=== PATIENT | female | born 1960 | race Caucasian/White ===

== ENCOUNTER → 2020-01-21 14:54 | Outpatient (REF) | payer OTHER, SELFPAY ==
--- NOTE | 2020-01-21 15:00 | CA_ITS ---
Transthoracic Echocardiogram Patient (Last, First, Middle): Tala Farley, Gender: Female Date of : 1960 Age: 59 Procedure Date: 01/21/2020 Procedure Type: Transthoracic Echocardiogram Location: OP Height: 167.64 cm Weight: 79.38 kg BSA: 1.89 m2 Heart Rate: bpm BP: 128 / 70 mmHg Forepart Laster: Referring MD: Bryan Murry MD Symptoms: I35.0 AORTIC STENOSIS Study Quality: Fair ECG Rhythm: Sinus Conclusions: - Normal left ventricular size and systolic function. There is moderately increased left ventricular wall thickness. The visually estimated ejection fraction is between 55-60%. - E/E prime ratio is between 8 and 15 consistent with indeterminate filling pressures. - There is mild dilatation of the ascending aorta. - There is moderate calcification of the aortic valve. There is moderate thickening of the aortic valve. There is moderate to severe aortic valve stenosis. The peak aortic velocity is 3.80 m/s with a calculated peak gradient of 58 mmHg. The mean gradient is 34 mmHg. The aortic valve area is 1.00 cm2. There is no aortic valve regurgitation. SVI is 65. Findings Left Ventricle Normal left ventricular size and systolic function. There is moderately increased left ventricular wall thickness. The visually estimated ejection fraction is between 55-60%. Abnormal diastolic function is noted. Spectral Doppler is indicative of an impaired relaxation filling pattern. E/E prime ratio is between 8 and 15 consistent with indeterminate filling pressures. Right Ventricle Normal right ventricular cavity size and systolic function. Atria The left atrium is mildly dilated. Aortic Valve There is moderate calcification of the aortic valve. There is moderate thickening of the aortic valve. There is moderate to severe aortic valve stenosis. The peak aortic velocity is 3.80 m/s with a calculated peak gradient of 58 mmHg. The mean gradient is 34 mmHg. The aortic valve area is 1.00 cm2. There is no aortic valve regurgitation. SVI is 65. Mitral Valve Normal mitral valve structure and function. There is no mitral valve regurgitation. There is no mitral valve stenosis. Pulmonic Valve The pulmonic valve is likely normal. Tricuspid Valve Normal tricuspid valve structure and function. There is trace tricuspid valve regurgitation. Normal right atrial pressure. There is no evidence of pulmonary hypertension. Great Vessels The pulmonary artery was not well visualized. There is mild dilatation of the ascending aorta. Venous The inferior vena cava is normal in size and collapses greater than 50% with inspiration. Pericardium/Pleural There is no evidence of pericardial effusion. Prior Study Comparison No significant change compared to prior study. Measurements 2D Linear Measurements IVSd: 1.31 0.6-0.9/0.6-1.0 cm LVIDd: 3.38 3.9-5.3/4.2-5.9 cm LVIDd Index: 1.79 2.4-3.2/2.2-3.1 cm/m2 LVIDs: 2.27 2.0-3.6 cm LVPWd: 1.31 0.7-1.1 cm LA Diam: 3.60 2.7-3.8/3.0-4.0 cm LAIDs Index: 1.90 1.5-2.3 cm/m2 LV Mass: 184.48 67-162/88-224 g LV Mass Index: 97.61 43-95/49-115 g/m2 LVOT Diam: 2.10 3.0+(-)1.3 cm Mitral Valve MV Pk E: 0.88 MV PK A: 0.97 MV Decel Time: 208.00 E/A: 0.90 E'Lateral: 8.03 E'Medial: 6.19 E/E' Med: 14.30 E/E' Lat: 11.00 PHT: 61.00 MVA PHT: 3.61 Decel [place]: 4.25 Aortic Valve AoV Pk Bul[place]o: 3.80 AoV Mn [place]: 2.67 AoV VTI: 0.84 AoV Pk Grad: 58.00 Aov Mn Grad: 34.00 ANGEL Cont.VTI: 1.00 LVOT LVOT Pk [place]: 1.06 LVOT Mn [place]: 0.73 LVOT VTI: 0.30 LVOT Pk Grad: 4.00 LVOT Mn Grad: 2.00 LVOT Diam: 2.10 LVOT Area: 3.46 Diastolic Function MV Pk E: 0.88 MV Pk A: 0.97 E/A: 0.90 E'Medial: 6.19 E/E' Med: 14.30 E' Laterial: 8.03 E/E' Lat: 11.00 Tricuspid Valve TR Pk [place]: 2.21 TR Pk Grad: 20.00 RVSP: 23.00 Great Vessels Aorta Ao Asc: 3.30 2.1-3.4 cm Pulmonary Valve PV Pk Bul[place]: 1.47 Peak PV Grad: 9.00 Updated in Other Vendor System with Status of Final Benito Acuña MD electronically signed on 01/22/2020 12:39:13 PM with status of Final
== END ==
LOC: HO.CARD 14:54
PROVIDERS: PCP Family Medicine; Visit Provider Internal Medicine
DX: I35.0 Nonrheumatic aortic (valve) stenosis (principal)
CPT/HCPCS: 93306

== ENCOUNTER → 2020-01-29 15:20 | Outpatient (BNVA) | payer OTHER, SELFPAY | PROVIDERS: PCP Family Medicine; Visit Provider Internal Medicine | DX: I35.0 Nonrheumatic aortic (valve) stenosis (principal); I10 Essential (primary) hypertension; E78.5 Hyperlipidemia, unspecified; Z79.899 Other long term (current) drug therapy | CPT/HCPCS: 99212 ==

== ENCOUNTER → 2020-07-21 12:59 | Outpatient (REF) | payer OTHER, SELFPAY ==
--- NOTE | 2020-07-21 13:01 | CA_ITS ---
Transthoracic Echocardiogram Patient (Last, First, Middle): Tala Farley, Gender: Female Date of : 1960 Age: 60 Procedure Date: 07/21/2020 Procedure Type: Transthoracic Echocardiogram Location: OP Height: 167.64 cm Weight: 82.56 kg BSA: 1.92 m2 Heart Rate: bpm BP: 140 / 82 mmHg Farebox Repairer: Vee MD: Bryan Murry MD Symptoms: Aortic stenosis Study Quality: Fair ECG Rhythm: Sinus Conclusions: - The left ventricular systolic function is normal. The visually estimated ejection fraction is between 65-70%. - There is moderate to severe aortic valve stenosis. - There is moderate mitral annular calcification. Findings Procedure Information Contrast agent, definity, is being given per protocol with complications as noted. Left Ventricle Normal left ventricular cavity size. There is normal left ventricular wall thickness. The left ventricular systolic function is normal. The visually estimated ejection fraction is between 65-70%. There is no evidence of regional wall motion abnormalities. E/E prime ratio is between 8 and 15 consistent with indeterminate filling pressures. Evidence suggests grade I (mild) diastolic dysfunction. Right Ventricle Normal right ventricular cavity size and systolic function. Atria The left atrium is normal in size. The right atrium is normal in size. Aortic Valve There is severe calcification of the aortic valve. There is moderate to severe aortic valve stenosis. The peak aortic velocity is 3.99 m/s with a calculated peak gradient of 64 mmHg. The mean gradient is 35 mmHg. The aortic valve area is 1.05 cm2. There is no aortic valve regurgitation. Dimensionless index 0.3. Mitral Valve There is moderate mitral annular calcification. There is trace mitral valve regurgitation. There is no mitral valve stenosis. Pulmonic Valve The pulmonic valve was not well visualized. Tricuspid Valve There is trace tricuspid valve regurgitation. The pulmonary artery systolic pressure is normal. Great Vessels The aortic annulus, sinuses of valsalva, asc aorta, and aortic arch are normal in size. Venous The inferior vena cava is normal in size and collapses greater than 50% with inspiration. Pericardium/Pleural There is no evidence of pericardial effusion. Prior Study Comparison No significant change compared to prior study dated: 01/21/2020. Measurements 2D Linear Measurements RVIDd: 2.68 RVIDd Index: 1.40 IVSd: 0.91 0.6-0.9/0.6-1.0 cm LVIDd: 4.54 3.9-5.3/4.2-5.9 cm LVIDd Index: 2.36 2.4-3.2/2.2-3.1 cm/m2 LVIDs: 2.80 2.0-3.6 cm LVPWd: 0.84 0.7-1.1 cm Ao Root: 2.60 2.1-3.5 cm LA Diam: 3.60 2.7-3.8/3.0-4.0 cm LAIDs Index: 1.88 1.5-2.3 cm/m2 LV Mass: 161.12 67-162/88-224 g LV Mass Index: 83.92 43-95/49-115 g/m2 LVOT Diam: 2.00 3.0+(-)1.3 cm 2D Systolic Function EF 4C: 67.30 >55% EF 2C: 50.00 >55% EF BiP: 57.80 >55% Mitral Valve MV Pk E: 1.03 MV PK A: 0.98 MV Decel Time: 232.00 E/A: 1.10 E'Lateral: 8.05 E'Medial: 6.64 E/E' Med: 15.50 E/E' Lat: 12.80 Aortic Valve AoV Pk [place]: 3.99 AoV Mn [place]: 2.77 AoV VTI: 0.92 AoV Pk Grad: 64.00 Aov Mn Grad: 35.00 ANGEL Cont.VTI: 1.05 LVOT LVOT Pk [place]: 1.21 LVOT Mn Bulmaro: 0.92 LVOT VTI: 0.31 LVOT Pk Grad: 6.00 LVOT Mn Grad: 4.00 LVOT Diam: 2.00 LVOT Area: 3.14 Diastolic Function MV Pk E: 1.03 MV Pk A: 0.98 E/A: 1.10 E'Medial: 6.64 E/E' Med: 15.50 E' Laterial: 8.05 E/E' Lat: 12.80 Tricuspid Valve RA Press: 3.00 Great Vessels Aorta Ao Root-2D: 2.60 2.0-3.7 cm Ao Asc: 3.40 2.1-3.4 cm Ao Arch: 3.00 Updated in Other Vendor System with Status of Final Bryan Murry MD electronically signed on 07/22/2020 4:57:21 PM with status of Final
== END ==
LOC: HO.CARD 12:59
PROVIDERS: PCP Family Medicine; Visit Provider Internal Medicine
DX: I35.0 Nonrheumatic aortic (valve) stenosis (principal)
CPT/HCPCS: 93306; Q9957

== ENCOUNTER → 2020-08-17 13:41 | Outpatient (BNVA) | payer OTHER, SELFPAY | PROVIDERS: PCP Family Medicine; Visit Provider Internal Medicine | DX: I35.0 Nonrheumatic aortic (valve) stenosis (principal); I50.9 Heart failure, unspecified; I10 Essential (primary) hypertension | CPT/HCPCS: 93005; 99212 ==

== ENCOUNTER → 2021-04-07 10:32 | Outpatient (REF) | payer OTHER, SELFPAY ==
--- NOTE | 2021-04-07 10:35 | CA_ITS ---
Transthoracic Echocardiogram Patient (Last, First, Middle): Tala Farley, Gender: Female Date of : 1960 Age: 60 Procedure Date: 04/07/2021 Procedure Type: Transthoracic Echocardiogram Location: OP Height: 170.18 cm Weight: 86.18 kg BSA: 1.98 m2 Heart Rate: bpm BP: 135 / 80 mmHg Cleat Blanker: CLEMENT Referring MD: Bryan Murry MD Bracelet Form Coverer: Jay Dejesus MD Symptoms: I35.0 - Nonrheumatic aortic (valve) stenosis Study Quality: Fair ECG Rhythm: Sinus Conclusions: - 1. Normal LV systolic function with mild LVH with impaired relaxation filling pattern 2. Moderate to severe aortic stenosis 3. Normal RV systolic pressure 4. No gross pericardial effusion Findings Left Ventricle Normal left ventricular size and systolic function. There is mildly increased left ventricular wall thickness. The visually estimated ejection fraction is between 55-60%. Spectral Doppler is indicative of an impaired relaxation filling pattern. E/E prime ratio is between 8 and 15 consistent with indeterminate filling pressures. Right Ventricle Normal right ventricular cavity size and systolic function. Atria The left atrium is likely dilated. Interatrial shunt cannot be excluded. The right atrium is normal in size. Aortic Valve There is moderate calcification of the aortic valve. There is moderate thickening of the aortic valve. There is moderate to severe aortic valve stenosis. The peak aortic gradient is 59 mmHg.The mean gradient is 35 mmHg. The aortic valve area is 1.04 cm2. There is no aortic valve regurgitation. Mitral Valve There is mild anterior and posterior mitral leaflet thickening. There is mild mitral annular calcification. There is trace mitral valve regurgitation. There is no mitral valve stenosis. Pulmonic Valve The pulmonic valve was not well visualized. Tricuspid Valve Likely normal tricuspid valve structure and function. There is trace tricuspid valve regurgitation. The right ventricular systolic pressure is normal. The right ventricular systolic pressure is 25 mmHg. Normal right atrial pressure. There is no evidence of pulmonary hypertension. Great Vessels All visible segments of the aorta are normal in size. The pulmonary artery was not well visualized. Venous The inferior vena cava is normal in size and collapses greater than 50% with inspiration. Pericardium/Pleural There is no evidence of pericardial effusion. Prior Study Comparison No significant change compared to prior study dated: 07/21/2020. Measurements 2D Linear Measurements IVSd: 1.31 0.6-0.9/0.6-1.0 cm LVIDd: 3.53 3.9-5.3/4.2-5.9 cm LVIDd Index: 1.78 2.4-3.2/2.2-3.1 cm/m2 LVIDs: 2.70 2.0-3.6 cm LVPWd: 1.23 0.7-1.1 cm Ao Root: 3.40 2.1-3.5 cm LA Diam: 3.40 2.7-3.8/3.0-4.0 cm LAIDs Index: 1.72 1.5-2.3 cm/m2 LV Mass: 186.85 67-162/88-224 g LV Mass Index: 94.37 43-95/49-115 g/m2 LVOT Diam: 2.10 3.0+(-)1.3 cm 2D Systolic Function EF 4C: 53.50 >55% EF 2C: 63.00 >55% EF BiP: 58.60 >55% Mitral Valve MV Pk E: 1.09 MV PK A: 1.12 MV Decel Time: 249.00 E/A: 1.00 E'Lateral: 7.94 E'Medial: 5.98 E/E' Med: 18.20 E/E' Lat: 13.70 PHT: 73.00 MVA PHT: 3.01 Decel [place]: 4.37 Aortic Valve AoV Pk Bulmaro: 3.83 AoV Mn Bulmaro: 2.82 AoV VTI: 0.92 AoV Pk Grad: 59.00 Aov Mn Grad: 35.00 ANGEL Cont.VTI: 1.04 LVOT LVOT Pk Bul[place]o: 1.19 LVOT Mn Bulmaro: 0.85 LVOT VTI: 0.28 LVOT Pk Grad: 6.00 LVOT Mn Grad: 3.00 LVOT Diam: 2.10 LVOT Area: 3.46 Diastolic Function MV Pk E: 1.09 MV Pk A: 1.12 E/A: 1.00 E'Medial: 5.98 E/E' Med: 18.20 E' Laterial: 7.94 E/E' Lat: 13.70 Right Ventricle TAPSE (mm): 22.80 TVS' Bulmaro: 12.90 Tricuspid Valve TR Pk Bulmaro: 2.33 TR Pk Grad: 22.00 RA Press: 3.00 RVSP: 25.00 Great Vessels Aorta Ao Root-2D: 3.40 2.0-3.7 cm Ao Asc: 3.20 2.1-3.4 cm Ao Arch: 3.10 Updated in Other Vendor System with Status of Final Jay Dejesus MD electronically signed on 04/07/2021 4:48:08 PM with status of Final
== END ==
LOC: HO.CARD 10:32
PROVIDERS: Visit Provider Internal Medicine
DX: I35.0 Nonrheumatic aortic (valve) stenosis (principal)
CPT/HCPCS: 93306

== ENCOUNTER → 2021-05-17 12:26 | Outpatient (BNVA) | payer OTHER, SELFPAY | PROVIDERS: PCP Family Medicine; Visit Provider Internal Medicine | DX: I35.0 Nonrheumatic aortic (valve) stenosis (principal); I05.9 Rheumatic mitral valve disease, unspecified; I10 Essential (primary) hypertension | CPT/HCPCS: 99212 ==

== ENCOUNTER → 2021-08-18 14:57 | Outpatient (REF) | payer OTHER, SELFPAY ==
--- NOTE | 2021-08-18 15:01 | CA_ITS ---
Transthoracic Echocardiogram Patient (Last, First, Middle): Tala Farley, Gender: Female Date of : 1960 Age: 61 Procedure Date: 08/18/2021 Procedure Type: Transthoracic Echocardiogram Location: OP Height: 170.18 cm Weight: 89.81 kg BSA: 2.01 m2 Heart Rate: bpm BP: 176 / 98 mmHg Hospice Admitting Clerk: SB Referring MD: Bryan Murry MD Symptoms: I35.0 - Nonrheumatic aortic (valve) stenosis Study Quality: Fair ECG Rhythm: Sinus Conclusions: - The left ventricular systolic function is hyperdynamic. The visually estimated ejection fraction is >70%. - There is severe aortic valve stenosis. Findings Procedure Information Contrast agent, definity, is being given per protocol without apparent complications. Left Ventricle Normal left ventricular cavity size. The left ventricular systolic function is hyperdynamic. The visually estimated ejection fraction is >70%. E/E prime ratio is between 8 and 15 consistent with indeterminate filling pressures. Evidence suggests grade I (mild) diastolic dysfunction. There is mild septal and mild basal asymmetric hypertrophy. Right Ventricle Normal right ventricular cavity size and systolic function. Atria Both atria are normal in size. Aortic Valve There is severe calcification of the aortic valve. There is severe aortic valve stenosis. The peak aortic velocity is 3.87 m/s with a calculated peak gradient of 64 mmHg. The mean gradient is 35 mmHg. The aortic valve area is 0.84 cm2. There is no aortic valve regurgitation. Cannot differentiate bicuspid or trileaflet. Dimensionless index 0.25. Mitral Valve There is moderate mitral annular calcification. There is no mitral valve regurgitation. There is no mitral valve stenosis. Pulmonic Valve The pulmonic valve is likely normal. Tricuspid Valve There is trace tricuspid valve regurgitation. The pulmonary artery systolic pressure is normal. Great Vessels The asc aorta, aortic arch, and desc aorta are normal in size. Venous The inferior vena cava is normal in size and collapses greater than 50% with inspiration. Pericardium/Pleural There is no evidence of pericardial effusion. Prior Study Comparison Changes noted compared to prior study dated: 04/07/2021. Progression of aortic valve stenosis. Measurements 2D Linear Measurements IVSd: 0.80 0.6-0.9/0.6-1.0 cm LVIDd: 4.34 3.9-5.3/4.2-5.9 cm LVIDd Index: 2.16 2.4-3.2/2.2-3.1 cm/m2 LVIDs: 2.69 2.0-3.6 cm LVPWd: 0.76 0.7-1.1 cm LA Diam: 3.70 2.7-3.8/3.0-4.0 cm LAIDs Index: 1.84 1.5-2.3 cm/m2 LV Mass: 128.90 67-162/88-224 g LV Mass Index: 64.13 43-95/49-115 g/m2 LVOT Diam: 1.90 3.0+(-)1.3 cm 2D Systolic Function EF 4C: 74.20 >55% EF 2C: 76.90 >55% EF BiP: 74.80 >55% Mitral Valve MV Pk E: 0.80 MV PK A: 1.02 MV Decel Time: 289.00 E/A: 0.80 E'Lateral: 7.18 E'Medial: 5.66 E/E' Med: 14.10 E/E' Lat: 11.10 PHT: 85.00 MVA PHT: 2.59 Decel [place]: 2.76 Aortic Valve AoV Pk Bulmaro: 3.87 AoV Mn Bul[place]: 2.75 AoV VTI: 0.77 AoV Pk Grad: 64.00 Aov Mn Grad: 34.60 ANGEL Cont.VTI: 0.84 LVOT LVOT Pk [place]: 1.03 LVOT Mn Bulmaro: 0.72 LVOT VTI: 0.24 LVOT Pk Grad: 5.00 LVOT Mn Grad: 2.00 LVOT Diam: 1.90 LVOT Area: 2.84 Diastolic Function MV Pk E: 0.80 MV Pk A: 1.02 E/A: 0.80 E'Medial: 5.66 E/E' Med: 14.10 E' Laterial: 7.18 E/E' Lat: 11.10 Right Ventricle TAPSE (mm): 17.50 TVS' [place]: 10.30 Tricuspid Valve RA Press: 3.00 Great Vessels Aorta Sinus of Valsalva: 3.28 2.0-3.5 cm Ao Asc: 3.60 2.1-3.4 cm Ao Arch: 2.80 Ao Desc: 1.40 Pulmonary Veins Pulm Vein S/D 2.20 Pulmonary Valve PV Pk Bul[place]o: 1.10 Peak PV Grad: 5.00 Updated in Other Vendor System with Status of Final Bryan Murry MD electronically signed on 08/19/2021 5:24:50 PM with status of Final
== END ==
LOC: HO.CARD 14:57
PROVIDERS: PCP Family Medicine; Visit Provider Internal Medicine
DX: I35.0 Nonrheumatic aortic (valve) stenosis (principal)
CPT/HCPCS: 93306; Q9957

== ENCOUNTER 2021-09-06 11:04 | Outpatient (REF) | payer OTHER, SELFPAY ==
[2021-09-06 13:06] LABS: Hematocrit 29.4 % (37.0-47.0); Hemoglobin 10.1 g/dl (12.0-16.0); Mean Corpuscular HGB Conc 34.4 g/dl (31.0-35.0); Mean Corpuscular Hemoglobin 39.5 pg (27.0-33.0); Mean Platelet Volume 10.6 fL (9.4-12.3); NRBC Pct Auto 0.3 /100WBC (0.0-0.2); Platelet Count 192 X10*3/uL (160-400); Red Blood Count 2.56 X10*6/uL (4.20-5.50); Red Cell Distribution Width 15.3 % (11.0-16.0); White Blood Count 6.7 X10*3/uL (4.8-10.8)
[2021-09-06 13:15] LABS: INTERNATIONAL NORM RATIO 1.2 (0.9-1.1); Prothrombin Time 13.8 SEC (9.9-13.0)
[2021-09-06 13:19] LABS: Mean Corpuscular Volume 114.8 fL (80.0-98.0)
[2021-09-06 13:49] LABS: Anion Gap 25 (12-20); Blood Urea Nitrogen 10 mg/dL (9-16); Calcium 6.8 mg/dL (8.4-10.2); Carbon Dioxide 19 mmol/L (22-29); Chloride 99 mmol/L (96-108); Estimated Glomerular Filt Rate > 60; Glucose Random 78 mg/dL (60-115); Potassium 3.3 mmol/L (3.3-5.1); Sodium 140 mmol/L (135-145)
== END 2021-09-06 11:05 | disposition home or self-care (01) ==
LOC: HO.LAB 11:04
PROVIDERS: PCP Family Medicine; Referring Provider Family Medicine; Visit Provider Internal Medicine
DX: I35.0 Nonrheumatic aortic (valve) stenosis (principal); I11.0 Hypertensive heart disease with heart failure; I50.9 Heart failure, unspecified
CPT/HCPCS: 36415; 80048; 85027; 85610; 93005; 99212

== ENCOUNTER → 2021-10-06 14:05 | Outpatient (BNVA) | payer OTHER, SELFPAY | PROVIDERS: PCP Family Medicine; Referring Provider Family Medicine; Visit Provider Internal Medicine | DX: I35.0 Nonrheumatic aortic (valve) stenosis (principal); I05.9 Rheumatic mitral valve disease, unspecified; I10 Essential (primary) hypertension; R60.0 Localized edema; Z79.899 Other long term (current) drug therapy | CPT/HCPCS: 99212 ==

== ENCOUNTER 2021-10-27 08:25 | Inpatient (IN) | payer OTHER, SELFPAY ==
--- NOTE | ~2021-10-27 | CT_ITS ---
EXAMINATION: CT HEAD WITHOUT CONTRAST CLINICAL INFORMATION: Altered mental status. Question CVA. COMPARISON: 05/09/2019 TECHNIQUE: Contiguous axial imaging was performed from the skull base to vertex without intravenous contrast. This CT examination was performed using dose optimization techniques as appropriate, variously including the following: * Automated exposure control * Adjustment of mA and/or kV according to patient size (this includes techniques or standardized protocols for targeted exams where dose is matched to indication/reason for exam; i.e. extremities or head) Use of iterative reconstruction technique DLP: 796 mGy-cm. FINDINGS: There is no evidence of acute intracranial hemorrhage or territorial infarction. No abnormal mass effect or midline shift is seen. Chambers to white matter differentiation is well preserved. No extra-axial fluid collections are identified. No hydrocephalus. Proportional prominence of the ventricles and sulcal spaces is consistent with moderate volume loss. Patchy periventricular and deep white matter hypoattenuation is consistent with moderate small vessel ischemic changes. The osseous structures and soft tissues are normal. The mastoid air cells and visualized portions of the paranasal sinuses are well aerated. CT/CT head/brain wo con IMPRESSION: No acute intracranial pathology. Chronic volume loss and small vessel ischemic change.
--- NOTE | ~2021-10-27 | MR_ITS ---
MRI OF THE BRAIN WITHOUT IV CONTRAST INDICATION: Ataxia. COMPARISON: Head CT 10/27/2021. TECHNIQUE: Multiplanar multisequence MR imaging of the brain was obtained without IV contrast. FINDINGS: Global cerebral volume loss and moderate chronic microangiopathy. There is no hydrocephalus, extra-axial surface collection, or herniation. The major flow voids at the skull base are preserved. There is no acute infarct on diffusion-weighted imaging. There is no intracranial hemorrhage on the gradient recalled echo acquisition. 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 Partially empty sella. The cerebellar tonsils are normally positioned. The cerebellum and brainstem are normal. The craniocervical junction is normal. Osseous marrow signal intensity is homogenous. The visualized soft tissues are unremarkable. MR/MR head/brain wo con IMPRESSION: - No acute intracranial findings. - Global cerebral volume loss and moderate chronic microangiopathy. 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 Partially empty sella.
--- NOTE | ~2021-10-27 | FL_ITS ---
EXAMINATION: XR LUMBAR PUNCTURE CLINICAL INFORMATION: Progressive lower extremity weakness. COMPARISON: None TECHNIQUE: 2 fluoroscopic images of the inferior lumbar spine were obtained. FL/FL guided lumbar puncture LP FINDINGS/IMPRESSION: A needle and contrast overlie L5 of the right paramedian region. Please refer to the procedure report for more detailed findings. FLUOROSCOPY TIME: 0.6 minutes DOSE AREA PRODUCT: 27.803 mGy
[2021-10-27 09:05] VITALS: BP 163/106; PULSE 88; RESP 18; TEMP 36.8; O2SAT 98; BMI 29.0
--- NOTE | 2021-10-27 09:08 | ECG_ITS ---
Test Reason : WEAKNESS Blood Pressure : / mmHG Vent. Rate : 078 BPM Atrial Rate : 078 BPM P-R Int : 166 ms QRS Dur : 074 ms QT Int : 458 ms P-R-T Axes : 057 013 025 degrees QTc Int : 522 ms Normal sinus rhythm Nonspecific T wave abnormality Abnormal ECG When compared with ECG of 09-MAY-2019 14:18, T wave inversion now evident in Anterior leads Referred By: Generic ED Physician Electronically Signed By:RAGINI GRANDE
[2021-10-27 10:04] LABS: MANUAL DIFF FLAG NO
[2021-10-27 10:13] LABS: Basophils Absolute Auto 0.1 X10*3/uL (0.0-0.2); Eosinophils Absolute Auto 0.1 X10*3/uL (0.0-0.4); Eosinophils Percent Auto 0.5 % (0-4); Hematocrit 37.6 % (37.0-47.0); Hemoglobin 13.1 g/dl (12.0-16.0); Imm Gran Abs Auto 0.05 X10*3/uL (0.00-0.03); Imm Gran Pct Auto 0.5 % (0.0-0.4); Lymphocytes Absolute Auto 1.4 X10*3/uL (1.2-4.9); Lymphocytes Percent Auto 14.3 % (20-40); Mean Corpuscular HGB Conc 34.8 g/dl (31.0-35.0); Mean Corpuscular Hemoglobin 36.2 pg (27.0-33.0); Mean Corpuscular Volume 103.9 fL (80.0-98.0); Mean Platelet Volume 10.3 fL (9.4-12.3); Monocytes Absolute Auto 1.4 X10*3/uL (0.1-1.2); Monocytes Percent Auto 13.6 % (2-11); Neutrophils Percent Auto 70.1 % (45-73); Platelet Count 423 X10*3/uL (160-400); Red Blood Count 3.62 X10*6/uL (4.20-5.50); Red Cell Distribution Width 14.2 % (11.0-16.0)
[2021-10-27 10:22] LABS: COVID-19 Test Negative (Negative); IDNOW Serial# 16C4AD1C
[2021-10-27 10:42] LABS: Anion Gap 22 (12-20); Blood Urea Nitrogen 11 mg/dL (9-16); Carbon Dioxide 22 mmol/L (22-29); Chloride 96 mmol/L (96-108); Creatinine Clr Calc Pharmacy 80.1; Estimated Glomerular Filt Rate > 60; Glucose Random 108 mg/dL (60-115); Potassium 3.5 mmol/L (3.3-5.1); Sodium 136 mmol/L (135-145)
[2021-10-27 10:55] LABS: Calcium 6.6 mg/dL (8.4-10.2)
[2021-10-27 13:52] VITALS: BP 164/96; PULSE 73; RESP 12; TEMP 36.6; O2SAT 99
[2021-10-27 14:23] VITALS: BP 166/97; PULSE 74; RESP 12; TEMP 36.8; O2SAT 98
[2021-10-27 15:00] LABS: Alanine Aminotransferase 44 U/L (0-31); Albumin Level 4.1 g/dL (3.5-5.0); Alkaline Phosphatase 97 U/L (39-117); Aspartate Amino Transferase 42 U/L (5-31); Bilirubin Direct 0.8 mg/dL (0.0-0.5); Bilirubin Total 2.1 mg/dL (0.0-1.0); Total Protein 7.2 g/dL (6.5-8.0)
[2021-10-27 15:11] LABS: B Type Natriuretic Peptide 67 pg/mL (<100); Troponin-I High Sensitivity 17.2 ng/L (<3.5-17.0)
[2021-10-27 15:13] LABS: Magnesium < 0.6 mg/dL (1.6-2.6)
--- NOTE | 2021-10-27 15:21 | ED.WEAKNESS ---
HPI - Weakness General Chief complaint: Weakness Stated complaint: weakness dehydration Time Seen by Provider: 10/27/21 13:49 Source: patient and family Mode of arrival: ambulatory Limitations: no limitations History of Present Illness HPI Narrative: Patient comes emergency room complaining of several months of decreased p.o. intake, frequent vomiting, weakness. Patient states that she feels very anxious and depressed that she has as heart surgery coming up. Patient has been symptomatic dyspnea and is scheduled to follow-up with thoracic surgery for possible aortic valve replacement. Patient also states that she has been depressed, recently she found out that her daughter was with twins and had a miscarriage of 1 of the twins. This affected the patient greatly. Also, patient's is at bedside, states that the patient has had issues with electrolytes in the past including magnesium being low. At this time, patient has no chest pain or shortness of breath. Shortness of breath only of exertion which has being worked up, secondary to aortic stenosis. Patient denies URI or UTI symptoms Related Data Home Medications Medication Instructions Recorded Confirmed atorvastatin 40 mg tablet 40 mg PO DAILY 01/29/20 10/06/21 bupropion HCl 300 mg 24 hr tablet, 300 mg PO DAILY 01/29/20 10/06/21 extended release fluticasone propionate 50 intranasal 01/29/20 10/06/21 mcg/actuation nasal spray,suspension metoprolol succinate 50 mg 50 mg PO DAILY 01/29/20 10/06/21 tablet,extended release 24 hr omeprazole 20 mg capsule,delayed 20 mg PO DAILY 01/29/20 10/06/21 release Previous Rx's Medication Instructions Recorded lisinopril 20 mg tablet 20 mg PO DAILY #90 tabs 09/30/21 furosemide 20 mg tablet (Lasix) 20 mg PO DAILY #90 tabs 10/06/21 Allergies Allergy/AdvReac Type Severity Reaction Status Date / Time gluten [GLUTEN] Allergy Intermediate GI UPSET Verified 10/06/21 14:24 Review of Systems Review of Systems: Constitutional : No Weight loss, No Fever, No Chills, No Night Sweats, complaining of fatigue ENT/Mouth : No Hearing loss, No Ear Pain, No Nasal Congestion, No Sinus Pain, No Hoarseness, No sore throat, No Rhinorrhea, No Swallowing Difficulty Eyes: No Eye Pain, No Swelling, No Redness, No Foreign Body, No Discharge, No Vision Changes Cardiovascular : No Chest Pain, No SOB, No Dyspnea on Exertion, No Orthopnea, No Edema, No Palpitations Respiratory : No Cough, No Sputum, No Wheezing, No Smoke Exposure, No Dyspnea Gastrointestinal : Complaining of nausea and vomiting for several months No Diarrhea, No Constipation, No abdominal Pain, No Hematochezia, No Melena Genitourinary : no irregular bleeding, No Dysuria, No Urinary Frequency, No Hematuria, No Urinary Incontinence, No Urgency, No Flank Pain, No Urinary Flow Changes, No Hesitancy Musculoskeletal : No joint pain, No Myalgias, No Joint Swelling Skin : No Skin Lesions, No rash Neuro : Complaining of lower extremity weakness, unsteady gait for several weeks, gradually worsening No Numbness, No Paresthesias, No Loss of Consciousness, No Dizziness, No Headache Psych : No Anxiety/Panic, No Depression, No SI/HI/AH/VH, No Social Issues, Heme/Lymph: No Bruising, No Bleeding,No Lymphadenopathy Endocrine : No Polyuria, No Polydipsia, No Temperature Intolerance [facility] Past Medical History Medical History Essential hypertension Non-rheumatic aortic stenosis Other and unspecified hyperlipidemia Surgical History History of cholecystectomy Family History Family History Father Heart attack Cardiovascular disease Mother Cardiovascular disease Social History Social History Alcohol intake: never Patient Tobacco Use Status: Never used Tobacco Use of substances other than those prescribed or required for medical reasons: No Advance Directives: No Physical Exam Vital Signs: Vital Signs: Last Vital Signs Temp 98.3 F 10/27/21 14:23 Pulse 74 10/27/21 14:23 Resp 12 10/27/21 14:23 BP 166/97 H 10/27/21 14:23 Pulse Ox 98 10/27/21 14:23 O2 Del Method 10/27/21 14:23 BMI result Body Mass Index 29.0 Const: Other: Appearance: Alert. Oriented X3. No acute distress. Eyes: Pupils equal, round and reactive to light. ENT: Pharynx normal. Neck: Normal inspection. Neck supple. No lymph nodes noted. No crepitus CVS: Normal heart rate and rhythm. Pulses normal. Normal S1 and S2, loud systolic murmur +3 in the right sternal border Respiratory: No respiratory distress. Breath sounds normal. No Wheezing. No rales Abdomen: Soft and nontender. No rigidity. No distention. Skin: Skin warm and dry. Normal skin color. Normal skin turgor. Extremities: No lower extremity edema. No Lacerations. No Rash Neuro: Oriented X 3. No motor deficit. No sensory deficit. Moving all extremities. No slurred speech. CN 2 through 12 grossly intact Psych: calm, cooperative, normal affect Course Course Course Narrative: Urinalysis pending, magnesium is less than 0.6. No EKG changes. Potassium within normal limits. Magnesium being repleted. Urinalysis is pending. If patient has a UTI, she may be a candidate to be admitted since she is very weak. If patient does not have a UTI, patient may need to be seen by behavioral health, possibly also case management and PT. MDM - Weakness Lab Data Result diagrams: 10/27/21 09:58 10/27/21 09:58 Labs: Lab Results 10/27/21 10/27/21 10/27/21 Range/Units 09:58 09:58 09:58 WBC 10.0 (4.8-10.8) X10*3/uL RBC 3.62 L D (4.20-5.50) X10*6/uL Hgb 13.1 D (12.0-16.0) g/dl Hct 37.6 D (37.0-47.0) % MCV 103.9 H (80.0-98.0) fL MCH 36.2 H (27.0-33.0) pg MCHC 34.8 (31.0-35.0) g/dl RDW 14.2 (11.0-16.0) % Plt Count 423 H D (160-400) X10*3/uL MPV 10.3 (9.4-12.3) fL Immature Gran % (Auto) 0.5 H (0.0-0.4) % Neut % (Auto) 70.1 (45-73) % Lymph % (Auto) 14.3 L (20-40) % [place] % (Auto) 13.6 H (2-11) % Eos % (Auto) 0.5 (0-4) % Baso % (Auto) 1.0 (0-2) % Lymph # (Auto) 1.4 (1.2-4.9) X10*3/uL [place] # (Auto) 1.4 H (0.1-1.2) X10*3/uL Eos # (Auto) 0.1 (0.0-0.4) X10*3/uL Baso # (Auto) 0.1 (0.0-0.2) X10*3/uL Abs Immat Gran (auto) 0.05 H (0.00-0.03) X10*3/uL Absolute Neuts (auto) 7.0 (2.0-8.3) x10*3/uL Absolute Nucleated RBC 0.000 (0.0-0.012) X10*3/uL Nucleated RBC % (auto) 0.0 (0.0-0.2) /100WBC Sodium 136 (135-145) mmol/L Potassium 3.5 (3.3-5.1) mmol/L Chloride 96 (96-108) mmol/L Carbon Dioxide 22 (22-29) mmol/L Anion Gap 22 H (12-20) BUN 11 (9-16) mg/dL Creatinine 0.80 (0.5-1.4) mg/dL Estim Creat Clear Calc 80.1 Estimated GFR > 60 Random Glucose 108 (60-115) mg/dL Calcium 6.6 L (8.4-10.2) mg/dL Magnesium < 0.6 L* (1.6-2.6) mg/dL Total Bilirubin 2.1 H (0.0-1.0) mg/dL Direct Bilirubin 0.8 H (0.0-0.5) mg/dL AST 42 H (5-31) U/L ALT 44 H (0-31) U/L Alkaline Phosphatase 97 (39-117) U/L Troponin I High Sens (<3.5-17.0) ng/L B-Natriuretic Peptide (<100) pg/mL Total Protein 7.2 (6.5-8.0) g/dL Albumin 4.1 (3.5-5.0) g/dL COVID-19 ([facility]) Negative (Negative) COVID-19 Clin Com See Note 10/27/21 Range/Units 14:44 WBC (4.8-10.8) X10*3/uL RBC (4.20-5.50) X10*6/uL Hgb (12.0-16.0) g/dl Hct (37.0-47.0) % MCV (80.0-98.0) fL MCH (27.0-33.0) pg MCHC (31.0-35.0) g/dl RDW (11.0-16.0) % Plt Count (160-400) X10*3/uL MPV (9.4-12.3) fL Immature Gran % (Auto) (0.0-0.4) % Neut % (Auto) (45-73) % Lymph % (Auto) (20-40) % [place] % (Auto) (2-11) % Eos % (Auto) (0-4) % Baso % (Auto) (0-2) % Lymph # (Auto) (1.2-4.9) X10*3/uL [place] # (Auto) (0.1-1.2) X10*3/uL Eos # (Auto) (0.0-0.4) X10*3/uL Baso # (Auto) (0.0-0.2) X10*3/uL Abs Immat Gran (auto) (0.00-0.03) X10*3/uL Absolute Neuts (auto) (2.0-8.3) x10*3/uL Absolute Nucleated RBC (0.0-0.012) X10*3/uL Nucleated RBC % (auto) (0.0-0.2) /100WBC Sodium (135-145) mmol/L Potassium (3.3-5.1) mmol/L Chloride (96-108) mmol/L Carbon Dioxide (22-29) mmol/L Anion Gap (12-20) BUN (9-16) mg/dL Creatinine (0.5-1.4) mg/dL Estim Creat Clear Calc Estimated GFR Random Glucose (60-115) mg/dL Calcium (8.4-10.2) mg/dL Magnesium (1.6-2.6) mg/dL Total Bilirubin (0.0-1.0) mg/dL Direct Bilirubin (0.0-0.5) mg/dL AST (5-31) U/L ALT (0-31) U/L Alkaline Phosphatase (39-117) U/L Troponin I High Sens 17.2 H (<3.5-17.0) ng/L B-Natriuretic Peptide 67 (<100) pg/mL Total Protein (6.5-8.0) g/dL Albumin (3.5-5.0) g/dL COVID-19 ([facility]) (Negative) COVID-19 Clin Com Discharge Plan Discharge Clinical Impression: Hypomagnesemia, Weakness Prescriptions: No Action lisinopril 20 mg tablet 20 mg PO DAILY Qty: 90 3RF metoprolol succinate 50 mg tablet extended release 24 hr 50 mg PO DAILY atorvastatin 40 mg tablet 40 mg PO DAILY bupropion HCl 300 mg tablet extended release 24 hr 300 mg PO DAILY omeprazole 20 mg capsule,delayed release(DR/EC) 20 mg PO DAILY fluticasone propionate 50 mcg/actuation spray,suspension intranasal furosemide [Lasix] 20 mg tablet 20 mg PO DAILY Qty: 90 3RF
[2021-10-27] MEDS: Magnesium Sulfate/H2O 2 GM/50 ML PIGGYBACK IV (15:37)
[2021-10-27 17:17] VITALS: BP 180/88; PULSE 100; RESP 12; TEMP 36.8; O2SAT 97
[2021-10-27 18:49] LABS: Magnesium 1.6 mg/dL (1.6-2.6)
[2021-10-27 18:56] LABS: Troponin-I High Sensitivity 18.5 ng/L (<3.5-17.0)
[2021-10-27] MEDS: 0.9 % Sodium Chloride 1,000 ML 999 ML IV (19:03)
--- NOTE | 2021-10-27 20:00 | PC.NURSE ---
PT BEHAVIOUR BECOMING MORE ERRATIC. SHE IS A&OX3, THOUGH ABRASIVE, AND INCREASINGLY RESISTANT TO CARE. PT REFUSING MEDICATIONS OFFERED FOR ANXIETY, ALSO REFUSING UNDERGOING MRI. PT EVENTUALLY AGREEABLE TO THESE PLANS, ONLY TO REFUSE AGAIN A LITTLE WHILE LATER. CONCERNS FOR ETOH WD. MD AWARE OF PT REFUSAL FOR CARE. PT ALSO UNABLE TO VOID TODAY, BLADDER SCAN EARLIER THIS EVENING SHOWED 350CCS. STATES SHE HAS BEEN UNABLE TO EAT OR DRINK OVER PAST FEW WKS D/T EMOTIONAL DISTRESS. PT ASSISTED TO BEDSIDE COMMODE, PT ABLE TO BEAR OWN WEIGHT THOUGH SHUFFLING GAIT.
[2021-10-27] MEDS: Magnesium Oxide 400 MG TABLET PO (20:05)
[2021-10-27] MEDS: Thiamine HCL 500 MG in 0.9 % Sodium Chloride 100 ML 210 MG IV (21:45)
[2021-10-27] MEDS: Folic Acid 1 MG TABLET PO (21:50)
[2021-10-27 21:53] VITALS: BP 189/98; PULSE 82; RESP 16; O2SAT 99
[2021-10-27 22:17] LABS: INTERNATIONAL NORM RATIO 1.1 (0.9-1.1); Prothrombin Time 12.9 SEC (10.0-13.1)
--- NOTE | 2021-10-27 22:25 | PC.NURSE ---
CELL [phone] LINNEA TOLBERT, [phone]. SPOKE WITH PTS , HE IS VERY CONCERNED, STATES PTS ERRATIC, COMBATIVENESS HAS BEEN AN NEW ISSUE AT HOME WELL.
[2021-10-27 22:58] LABS: Ammonia 28 umol/L (13-55)
--- NOTE | 2021-10-27 23:27 | PM.IMHP ---
History of Present Illness Date of Service: 10/27/21 Chief Complaint: weakness, confusion, difficulty walking This is a 61-year-old female with past medical history of hypertension, non rheumatoid aortic stenosis, who presents to the hospital brought in by her due to increased confusion, weakness, and difficulty walking. When I spoke to the patient, she is alert, oriented to self and place, and able to give history appropriately. She does appear disheveled a knotting that hygiene but otherwise no clear confusion based on history. Patient reports that her family brought her in because she has had difficulty walking. When I inquire further she does not give a good explanation for why she has trouble walking but reports that she has had trouble with pain in her foot and leg due to osteoarthritis and it snowballed from there no further explanation. Patient reports that she does not feel confused she reports that she has been sleeping and eating well, she denies any chest pain, no abdominal pain nausea or vomiting, no diarrhea constipation, no urinary symptoms. Patient reports that she has chronic right-sided swelling for over a year, she has chronic shortness of breath that has not increased, she denies any orthopnea or PND. She denies any cough, no fever or chills. No weakness numbness or tingling. She denies any blurred or double vision. When asked about her drinking habits patient reports that she has not drank since August but used to be a daily drinker. On arrival to the ED patient hemodynamically stable slightly elevated blood pressure otherwise no abnormal vitals Labs are significant for WBC count of 10.0, hemoglobin of 13.1, medical 36.7, MCV of 103.9, potassium 3.5, calcium 6.6, magnesium of less than 0.6 total bili of 2.1, direct bili of 0.8, AST of 42, ALT of 44, ammonia of 28, troponin of 17 that increased to 18.5, Head CT showed no acute intracranial pathology, chronic volume loss and small-vessel ischemic change Patient was supposed to get MRI in the ED but had difficulty with claustrophobia and refused to undergo MRI Patient given IV magnesium, will be admitted for further management Review of Systems Review of Systems: Yes all other systems are reviewed and are negative [facility] Medical History Essential hypertension Non-rheumatic aortic stenosis Other and unspecified hyperlipidemia Family History Father Heart attack Cardiovascular disease Mother Cardiovascular disease Surgical History History of cholecystectomy Social History Alcohol intake: never Patient Tobacco Use Status: Never used Tobacco Use of substances other than those prescribed or required for medical reasons: No Advance Directives: No Meds Allergies Allergy/AdvReac Type Severity Reaction Status Date / Time gluten [GLUTEN] Allergy Intermediate GI UPSET Verified 10/06/21 14:24 Home Medications Medication Instructions Recorded Confirmed Last Taken Type atorvastatin 40 mg tablet 40 mg PO DAILY 01/29/20 10/06/21 Unknown History bupropion HCl 300 mg 24 hr tablet, 300 mg PO DAILY 01/29/20 10/06/21 Unknown History extended release fluticasone propionate 50 intranasal 01/29/20 10/06/21 Unknown History mcg/actuation nasal spray,suspension metoprolol succinate 50 mg 50 mg PO DAILY 01/29/20 10/06/21 Unknown History tablet,extended release 24 hr omeprazole 20 mg capsule,delayed 20 mg PO DAILY 01/29/20 10/06/21 Unknown History release Physical Exam Vital Signs and Narrative: Vital Signs: Last Vital Signs Temp 98.3 F 10/27/21 17:17 Pulse 82 10/27/21 21:53 Resp 16 10/27/21 21:53 BP 189/98 H 10/27/21 21:53 Pulse Ox 99 10/27/21 21:53 O2 Del Method 10/27/21 21:53 BMI result Body Mass Index 29.0 Const: Other: Patient awake alert, oriented, not in distress, but appears disheveled General: cooperative and no acute distress Orientation/consciousness: patient oriented x3 HEENT: Other: Horizontal nystagmus Eyes: General: appearance normal, both eyes and all related structures Resp: Effort & Inspection: normal respiratory effort Auscultation: clear to auscultation bilaterally Cardio: Rate: regular rate Rhythm: regular rhythm GI: Palpation (GI): Soft to palpation Auscultation: normal bowel sounds Skin: General skin exam: no rashes or lesions noted Neuro: Other: Horizontal nystagmus present Strength is 4/5 in all extremities General: patient oriented x3 Extrem: General: Yes normal to inspection and Yes no pedal edema Results Labs CBC and Chem 7: 10/28/21 04:47 10/28/21 04:47 Labs: Laboratory Results - last 24 hr 10/27/21 10/27/21 10/27/21 09:58 09:58 09:58 MCV 103.9 H MCH 36.2 H MCHC 34.8 RDW 14.2 Plt Count 423 H D MPV 10.3 Immature Gran % (Auto) 0.5 H Neut % (Auto) 70.1 Lymph % (Auto) 14.3 L [place] % (Auto) 13.6 H Eos % (Auto) 0.5 Baso % (Auto) 1.0 Lymph # (Auto) 1.4 [place] # (Auto) 1.4 H Eos # (Auto) 0.1 Baso # (Auto) 0.1 Abs Immat Gran (auto) 0.05 H Absolute Neuts (auto) 7.0 Absolute Nucleated RBC 0.000 Nucleated RBC % (auto) 0.0 PT INR APTT Anion Gap 22 H Estim Creat Clear Calc 80.1 Estimated GFR > 60 Random Glucose 108 Calcium 6.6 L Magnesium < 0.6 L* Total Bilirubin 2.1 H Direct Bilirubin 0.8 H AST 42 H ALT 44 H Alkaline Phosphatase 97 Ammonia B-Natriuretic Peptide Total Protein 7.2 Albumin 4.1 COVID-19 ([facility]) Negative COVID-19 Clin Com See Note 10/27/21 10/27/21 10/27/21 14:44 18:25 21:58 MCV MCH MCHC RDW Plt Count MPV Immature Gran % (Auto) Neut % (Auto) Lymph % (Auto) [place] % (Auto) Eos % (Auto) Baso % (Auto) Lymph # (Auto) [place] # (Auto) Eos # (Auto) Baso # (Auto) Abs Immat Gran (auto) Absolute Neuts (auto) Absolute Nucleated RBC Nucleated RBC % (auto) PT INR APTT Anion Gap Estim Creat Clear Calc Estimated GFR Random Glucose Calcium Magnesium 1.6 Total Bilirubin Direct Bilirubin AST ALT Alkaline Phosphatase Ammonia 28 B-Natriuretic Peptide 67 Total Protein Albumin COVID-19 ([facility]) COVID-19 Clin Com 10/27/21 21:58 MCV MCH MCHC RDW Plt Count MPV Immature Gran % (Auto) Neut % (Auto) Lymph % (Auto) [place] % (Auto) Eos % (Auto) Baso % (Auto) Lymph # (Auto) [place] # (Auto) Eos # (Auto) Baso # (Auto) Abs Immat Gran (auto) Absolute Neuts (auto) Absolute Nucleated RBC Nucleated RBC % (auto) PT 12.9 INR 1.1 APTT 30.0 Anion Gap Estim Creat Clear Calc Estimated GFR Random Glucose Calcium Magnesium Total Bilirubin Direct Bilirubin AST ALT Alkaline Phosphatase Ammonia B-Natriuretic Peptide Total Protein Albumin COVID-19 ([facility]) COVID-19 Clin Com Imaging Radiologist's Impressions: Impressions Head CT 10/27/21 21:38 IMPRESSION: No acute intracranial pathology. Chronic volume loss and small vessel ischemic change. Assessment and Plan (1) Wernicke encephalopathy: Status: Acute (2) Hypomagnesemia: Status: Acute (3) Weakness: Status: Acute Plan This 1-year-old female with history of hypertension, and aortic stenosis presents to the hospital with increased confusion, weakness and difficulty ambulating being admitted for possible Wernicke's encephalitis # Wernicke encephalitis? - patient has increased confusion per family, difficulty ambulating as well as has clear nystagmus with history of alcohol abuse - started on thiamine 500 mg IV b.i.d. - neurology consulted - patient reports that she will attempt MRI in the morning # generalized weakness - possibly secondary to above - has electrolyte abnormalities - pending UA - magnesium repleted - follow UA and if positive, tx with abx # Hypomagnesemia , hypocalcemia - repleted - follow levels # HTN - Stable - continue home med DVT ppx: Lovenox Given the possible wernicke's encephalitis pt will need a minimum benign hospital stay for further evaluation and monitoring Quality Stroke Does the patient have a stroke diagnosis?: No VTE Prior VTE?: No VTE Risk Level:: Medical - moderate - high VTE Device Contraindication: Treatment Not Indicated VTE Drug Contraindication: N/A - Med Ordered
[2021-10-27 23:36] VITALS: BP 175/94; PULSE 71; RESP 16; O2SAT 98
[2021-10-27] MEDS: Enoxaparin Sodium 40 MG/0.4 ML SYRINGE SUBCUT (23:42)
[2021-10-27] MEDS: 0.9 % Sodium Chloride Flush 3 ML SYRINGE IVFLUSH (23:43)
[2021-10-28 03:33] VITALS: BP 119/71; PULSE 75; RESP 19; O2SAT 94
[2021-10-28 05:07] LABS: Basophils Absolute Auto 0.1 X10*3/uL (0.0-0.2); Basophils Percent Auto 1.3 % (0-2); Eosinophils Absolute Auto 0.2 X10*3/uL (0.0-0.4); Eosinophils Percent Auto 1.9 % (0-4); Hematocrit 34.4 % (37.0-47.0); Hemoglobin 12.1 g/dl (12.0-16.0); Imm Gran Abs Auto 0.02 X10*3/uL (0.00-0.03); Imm Gran Pct Auto 0.2 % (0.0-0.4); Lymphocytes Absolute Auto 2.3 X10*3/uL (1.2-4.9); Lymphocytes Percent Auto 22.5 % (20-40); MANUAL DIFF FLAG NO; Mean Corpuscular HGB Conc 35.2 g/dl (31.0-35.0); Mean Corpuscular Hemoglobin 36.3 pg (27.0-33.0); Mean Corpuscular Volume 103.3 fL (80.0-98.0); Mean Platelet Volume 10.3 fL (9.4-12.3); Monocytes Percent Auto 9.7 % (2-11); Neutrophils Absolute Auto 6.7 x10*3/uL (2.0-8.3); Neutrophils Percent Auto 64.4 % (45-73); Platelet Count 402 X10*3/uL (160-400); Red Blood Count 3.33 X10*6/uL (4.20-5.50); Red Cell Distribution Width 14.1 % (11.0-16.0); White Blood Count 10.4 X10*3/uL (4.8-10.8)
[2021-10-28 05:28] LABS: Anion Gap 17 (12-20); Blood Urea Nitrogen 8 mg/dL (9-16); Carbon Dioxide 21 mmol/L (22-29); Chloride 100 mmol/L (96-108); Creatinine Clr Calc Pharmacy 95.6; Estimated Glomerular Filt Rate > 60; Glucose Random 82 mg/dL (60-115); Potassium 2.8 mmol/L (3.3-5.1); Sodium 135 mmol/L (135-145)
[2021-10-28 05:53] VITALS: BP 150/87; PULSE 71; RESP 15; TEMP 36.5; O2SAT 97
[2021-10-28 07:19] LABS: Magnesium 1.3 mg/dL (1.6-2.6)
[2021-10-28] MEDS: Potassium Chloride Packet 20 MEQ PACKET 40 MEQ PO ×2 (07:26→09:25)
[2021-10-28] MEDS: Calcium Gluconate/NaCl,Iso-Osm 2 GM/100 ML PLAST..BAG IV ×2 (07:26→17:24)
[2021-10-28] MEDS: Magnesium Sulfate/H2O 2 GM/50 ML PIGGYBACK IV (07:40)
--- NOTE | 2021-10-28 09:13 | PHA.MEDREC ---
Pharmacy Consult ? Medication Reconciliation Pharmacy has completed the medication reconciliation. Patient reports that she stopped her Bupropion however her provider told her to restart it. She has not started it yet but the prescripition is at her pharmacy. Debbie Torres, GarrettD
--- NOTE | 2021-10-28 09:21 | MHC.CM.PN ---
Met with patient and , Martell in regards to discharge planning. Patient lives with her , ambulates independently and had no services prior to coming to the hospital. No services anticipated to be needed because patient is not homebound. PCP verified. Copy of HCP verified to be on file. Patient received 2 Pfizer vaccines and 1 Moderna booster. Martell will transport patient home when medically stable. Continue to monitor for d/c needs.
[2021-10-28] MEDS: Thiamine HCL 500 MG in 0.9 % Sodium Chloride 100 ML 210 MG IV ×3 (09:25→20:51)
[2021-10-28] MEDS: Folic Acid 1 MG TABLET PO (09:25)
[2021-10-28] MEDS: 0.9 % Sodium Chloride Flush 3 ML SYRINGE IVFLUSH ×3 (09:26→20:35)
[2021-10-28] MEDS: diazePAM 10 MG/2 ML CARTRIDGE 5 MG IVPUSH ×2 (11:24→12:14)
[2021-10-28 11:59] LABS: Appearance Urine CLEAR; Color Urine YELLOW; Glucose Urine UA NEG (NEG); Leukocyte Esterase Urine NEG (NEG); Nitrite Urine NEG (NEG); Urine Blood NEG (NEG); Urine Ketones 15 MG/DL (NEG); Urine Protein NEG (NEG-TRACE)
--- NOTE | 2021-10-28 12:00 | PC.NURSE ---
valium given for anxiety with good effect, alert, speech cleasr, nad now, zamorano placed and 1500ml drained, hasn't urinated x 2 days, feel so much better , mri screening done and faxed, plan for mri at 1230 and to give iv valium just before
--- NOTE | 2021-10-28 13:25 | PM.NEUROCN ---
History of Present Illness Data of Consult Service Date: 10/28/21 Primary Care Provider: Jaret Bialey MD HPI Reason for consult: Difficulty walk Is 61 years old woman with underlying history of hypertension and non rheumatic aortic stenosis came to hospital with unsteadiness and not able to walk. It started few days ago. There was no associated cold or flu-like illness headache nausea or vomiting. There was no speech language difficulty. There was no complaint of any significant pain. Review of Systems Review of Systems: As per HPI [facility] Past Medical History Medical History Essential hypertension Non-rheumatic aortic stenosis Other and unspecified hyperlipidemia Family History Family History Father Heart attack Cardiovascular disease Mother Cardiovascular disease Surgical History Surgical History History of cholecystectomy Social History Social History Alcohol intake: never Patient Tobacco Use Status: Never used Tobacco Use of substances other than those prescribed or required for medical reasons: No Advance Directives: Yes Advance Directives on File: Yes Advance Directives Date on File: 10/28/21 service: No Current occupational status: employed Meds Allergies Allergy/AdvReac Type Severity Reaction Status Date / Time gluten [GLUTEN] Allergy Intermediate GI UPSET Verified 10/06/21 14:24 Active Medications: Current Medications Acetaminophen (Acetaminophen 325 Mg Tablet) 650 mg PO Q6H PRN PRN Reason: Pain, Mild (Pain Scale 1-3) Docusate Sodium (Docusate Sodium 100 Mg Capsule) 100 mg PO DAILY PRN PRN Reason: Constipation Enoxaparin Sodium (Enoxaparin Sodium 40 Mg/0.4 Ml Syringe) 40 mg SUBCUT Q24H [facility] Last Admin: 10/27/21 23:42 Dose: 40 mg Folic Acid (Folic Acid 1 Mg Tablet) 1 mg PO DAILY [facility] Last Admin: 10/28/21 09:25 Dose: 1 mg Thiamine HCl 500 mg/ Sodium (Chloride) 105 mls @ 210 mls/hr IV TID [facility] Last Admin: 10/28/21 09:25 Dose: 210 mls/hr Ondansetron HCl (Ondansetron Hcl 4 Mg/2 Ml Vial) 4 mg IVPUSH Q8H PRN PRN Reason: Nausea and Vomiting Pharmacy Consult (Consult Rx Perform Med Rec) 1 each MISCELLANE ONCE PRN PRN Reason: Consult order Sodium Chloride (0.9 % Sodium Chloride Flush 3 Ml Syringe) 3 ml IVFLUSH QSHIFT [facility] Last Admin: 10/28/21 09:26 Dose: 3 ml Home Medications Medication Instructions Recorded Confirmed Last Taken Type atorvastatin 40 mg tablet 40 mg PO DAILY 01/29/20 10/28/21 10/27/21 History bupropion HCl 300 mg 24 hr tablet, 300 mg PO DAILY 01/29/20 10/28/21 Unknown History extended release fluticasone propionate 50 1 spray intranasal DAILY 01/29/20 10/28/21 10/27/21 History mcg/actuation nasal spray,suspension metoprolol succinate 50 mg 50 mg PO DAILY 01/29/20 10/28/21 10/27/21 History tablet,extended release 24 hr omeprazole 20 mg capsule,delayed 20 mg PO DAILY 01/29/20 10/28/21 10/27/21 History release lorazepam 0.5 mg tablet 1 tab PO DAILY PRN Anxiety 10/28/21 10/28/21 10/27/21 History Physical Exam Vital Signs: Vital Signs: Last Vital Signs Temp 97.7 F 10/28/21 05:53 Pulse 71 10/28/21 05:53 Resp 15 10/28/21 05:53 BP 150/87 H 10/28/21 05:53 Pulse Ox 97 10/28/21 05:53 O2 Del Method 10/28/21 05:53 BMI result Body Mass Index 29.0 Neuro: Other: She was alert and awake with normal spontaneity of speech fluency comprehension and affect. Pupils were equal and reactive to light and extraocular muscles were intact. Visual kaur are full to threat. Face was symmetrical. Tongue was midline. There was no pronator drift. Deep tendon reflexes were trace to 1+ with flexor plantars. With help she was able to stand but could not stand on her own and fell backwards illness she was held. Speech was normal Results Labs CBC & Chem 7: 10/28/21 04:47 10/28/21 04:47 Labs: Short CBC 10/28/21 Range/Units 04:47 WBC 10.4 (4.8-10.8) X10*3/uL Hgb 12.1 (12.0-16.0) g/dl Hct 34.4 L (37.0-47.0) % Plt Count 402 H (160-400) X10*3/uL [facility] 10/28/21 04:47 Sodium 135 Potassium 2.8 L Chloride 100 Carbon Dioxide 21 L BUN 8 L Creatinine 0.67 Calcium 6.0 L* D Liver Function 10/27/21 Range/Units 09:58 Total Bilirubin 2.1 H (0.0-1.0) mg/dL Direct Bilirubin 0.8 H (0.0-0.5) mg/dL AST 42 H (5-31) U/L ALT 44 H (0-31) U/L Alkaline Phosphatase 97 (39-117) U/L Albumin 4.1 (3.5-5.0) g/dL Urine 10/28/21 Range/Units 11:47 Urine Color YELLOW Urine Appearance CLEAR Urine pH 7.0 (5.0-8.0) Ur Specific Only 1.010 (1.005-1.025) Urine Protein NEG (NEG-TRACE) MG/DL Urine Glucose (UA) NEG (NEG) MG/DL Noncontrast head CT revealed moderately severe diffuse cerebral atrophy and microvascular disease. MRI of brain without contrast did not reveal any acute lesion and reveals same finding as CT scan. Assessment and Plan (1) Weakness: Status: Acute 61 years old woman with subacute onset of difficulty walking and a loss of balance. Her examination did not reveal any upper motor neuron sign and imaging did not reveal any acute stroke or brain lesion. There is evidence of some cerebral atrophy and microvascular disease but that would not explain her present presentation. If no other explanation is found, 1 should also consider peripheral neuropathy or Guillain-Amber type of pathology. I recommend obtaining a CSF sample to check CSF glucose protein and cells to see if there is any significant elevation of CSF protein. Any EMG nerve conduction study can also help but practically not available at this time. Procedures Date of Service Date of Service: 10/28/21
--- NOTE | 2021-10-28 15:09 | HO.PM.IMPN ---
Subjective Subjective Date of Service: 10/28/21 Interval History: No acute issues overnight. Does complain of inability to void Review of Systems Denies chest pain Denies shortness of breath Denies nausea vomiting diarrhea Denies abdominal pain fever chills Physical Exam Vital Signs: Vital Signs: Last Vital Signs Temp 97.7 F 10/28/21 05:53 Pulse 71 10/28/21 05:53 Resp 15 10/28/21 05:53 BP 150/87 H 10/28/21 05:53 Pulse Ox 97 10/28/21 05:53 O2 Del Method 10/28/21 05:53 BMI result Body Mass Index 29.0 Const: Other: Awake alert no acute distress Resp: Other: Clear to auscultation bilaterally no rales rhonchi or wheezes Cardio: Other: No S4; positive S1-S2; no S3 murmurs rubs or gallops GI: Other: Soft nontender nondistended with normoactive bowel sounds Neuro: Other: Cranial nerves 2-12 grossly intact as tested .Motor 5/5 all extremities however unable to stand without assist. Cognition appropriate Extrem: Other: No edema bilaterally Objective Data Active Medications Acetaminophen (Acetaminophen 325 Mg Tablet) 650 mg PO Q6H PRN PRN Reason: Pain, Mild (Pain Scale 1-3) Docusate Sodium (Docusate Sodium 100 Mg Capsule) 100 mg PO DAILY PRN PRN Reason: Constipation Enoxaparin Sodium (Enoxaparin Sodium 40 Mg/0.4 Ml Syringe) 40 mg SUBCUT Q24H [facility] Last Admin: 10/27/21 23:42 Dose: 40 mg Documented By: TREV Folic Acid (Folic Acid 1 Mg Tablet) 1 mg PO DAILY [facility] Last Admin: 10/28/21 09:25 Dose: 1 mg Documented By: DEYANIRA Thiamine HCl 500 mg/ Sodium (Chloride) 105 mls @ 210 mls/hr IV TID [facility] Last Admin: 10/28/21 13:59 Dose: 210 mls/hr Documented By: DEYANIRA Ondansetron HCl (Ondansetron Hcl 4 Mg/2 Ml Vial) 4 mg IVPUSH Q8H PRN PRN Reason: Nausea and Vomiting Pharmacy Consult (Consult Rx Perform Med Rec) 1 each MISCELLANE ONCE PRN PRN Reason: Consult order Sodium Chloride (0.9 % Sodium Chloride Flush 3 Ml Syringe) 3 ml IVFLUSH QSHIFT [facility] Last Admin: 10/28/21 09:26 Dose: 3 ml Documented By: DEYANIRA Labs CBC & Chem 7: 10/28/21 04:47 10/28/21 04:47 Labs: Laboratory Results - last 24 hr 10/27/21 10/27/21 10/27/21 09:58 14:44 18:25 MCV MCH MCHC RDW Plt Count MPV Immature Gran % (Auto) Neut % (Auto) Lymph % (Auto) [place] % (Auto) Eos % (Auto) Baso % (Auto) Lymph # (Auto) [place] # (Auto) Eos # (Auto) Baso # (Auto) Abs Immat Gran (auto) Absolute Neuts (auto) Absolute Nucleated RBC Nucleated RBC % (auto) PT INR APTT Anion Gap Estim Creat Clear Calc Estimated GFR Random Glucose Calcium Magnesium < 0.6 L* 1.6 Ammonia B-Natriuretic Peptide 67 Urine Color Urine Appearance Urine pH Ur Specific [place] Urine Protein Urine Glucose (UA) Urine Ketones Urine Blood Urine Nitrite Ur Leukocyte Esterase 10/27/21 10/27/21 10/28/21 21:58 21:58 04:47 MCV 103.3 H MCH 36.3 H MCHC 35.2 H RDW 14.1 Plt Count 402 H MPV 10.3 Immature Gran % (Auto) 0.2 Neut % (Auto) 64.4 Lymph % (Auto) 22.5 [place] % (Auto) 9.7 Eos % (Auto) 1.9 Baso % (Auto) 1.3 Lymph # (Auto) 2.3 [place] # (Auto) 1.0 Eos # (Auto) 0.2 Baso # (Auto) 0.1 Abs Immat Gran (auto) 0.02 Absolute Neuts (auto) 6.7 Absolute Nucleated RBC 0.000 Nucleated RBC % (auto) 0.0 PT 12.9 INR 1.1 APTT 30.0 Anion Gap Estim Creat Clear Calc Estimated GFR Random Glucose Calcium Magnesium Ammonia 28 B-Natriuretic Peptide Urine Color Urine Appearance Urine pH Ur Specific [place] Urine Protein Urine Glucose (UA) Urine Ketones Urine Blood Urine Nitrite Ur Leukocyte Esterase 10/28/21 10/28/21 04:47 11:47 MCV MCH MCHC RDW Plt Count MPV Immature Gran % (Auto) Neut % (Auto) Lymph % (Auto) [place] % (Auto) Eos % (Auto) Baso % (Auto) Lymph # (Auto) [place] # (Auto) Eos # (Auto) Baso # (Auto) Abs Immat Gran (auto) Absolute Neuts (auto) Absolute Nucleated RBC Nucleated RBC % (auto) PT INR APTT Anion Gap 17 Estim Creat Clear Calc 95.6 Estimated GFR > 60 Random Glucose 82 Calcium 6.0 L* D Magnesium 1.3 L* Ammonia B-Natriuretic Peptide Urine Color YELLOW Urine Appearance CLEAR Urine pH 7.0 Ur Specific [place] 1.010 Urine Protein NEG Urine Glucose (UA) NEG Urine Ketones 15 Urine Blood NEG Urine Nitrite NEG Ur Leukocyte Esterase NEG Assessment and Plan (1) Difficulty in walking: Status: Acute (2) Hypomagnesemia: Status: Acute (3) Essential hypertension: Status: Acute Plan This 61-year-old female with history of hypertension, and aortic stenosis presents to the hospital with increased confusion, weakness and difficulty ambulating. Initial workup significant for hypokalemia, hypomagnesemia and hypocalcemia 1. Acute onset difficulty ambulation - aggressively replete potassium/ magnesium/calcium - started on thiamine 500 mg IV b.i.d. - seen by Neurology; MRI unremarkable recommends LP which will be done in the a.m. 2.Hypomagnesemia , hypocalcemia - aggressive repletion -follow renals/divalents 3. HTN -acceptable control on current therapies -adjust as indicated Lovenox Full code Will require ongoing hospitalizations for aggressive repletion of Diovan Lantus and further workup of weakness Quality Stroke Does the patient have a stroke diagnosis?: No VTE Prior VTE?: No VTE Risk Level:: Medical - moderate - high VTE Device Contraindication: Treatment Not Indicated VTE Drug Contraindication: N/A - Med Ordered
[2021-10-28 15:15] LABS: Anion Gap 15 (12-20); Blood Urea Nitrogen 7 mg/dL (9-16); Calcium 6.9 mg/dL (8.4-10.2); Carbon Dioxide 22 mmol/L (22-29); Chloride 101 mmol/L (96-108); Creatinine Clr Calc Pharmacy 83.2; Estimated Glomerular Filt Rate > 60; Glucose Random 153 mg/dL (60-115); Magnesium 1.6 mg/dL (1.6-2.6); Sodium 134 mmol/L (135-145)
[2021-10-28 16:04] VITALS: PULSE 92; RESP 18; O2SAT 98
[2021-10-28 20:00] VITALS: BP 128/74; PULSE 99; RESP 16; TEMP 36.4; O2SAT 97
[2021-10-28] MEDS: Atorvastatin Calcium 40 MG TABLET PO (20:35)
[2021-10-28] MEDS: LORazepam 0.5 MG TABLET PO (20:35)
[2021-10-28] MEDS: Enoxaparin Sodium 40 MG/0.4 ML SYRINGE SUBCUT (23:57)
[2021-10-29] VITALS: BP 128/66; PULSE 82; RESP 15; RESP 16; TEMP 36.6; O2SAT 97
[2021-10-29 03:55] VITALS: BP 174/77; PULSE 77; RESP 16; TEMP 36.4; O2SAT 96
[2021-10-29] MEDS: Omeprazole 20 MG CAPSULE.DR PO (05:54)
[2021-10-29 07:02] LABS: MANUAL DIFF FLAG NO
[2021-10-29 07:04] LABS: Basophils Absolute Auto 0.2 X10*3/uL (0.0-0.2); Basophils Percent Auto 2.3 % (0-2); Eosinophils Absolute Auto 0.3 X10*3/uL (0.0-0.4); Eosinophils Percent Auto 3.9 % (0-4); Hematocrit 32.8 % (37.0-47.0); Hemoglobin 11.4 g/dl (12.0-16.0); Imm Gran Abs Auto 0.03 X10*3/uL (0.00-0.03); Imm Gran Pct Auto 0.4 % (0.0-0.4); Lymphocytes Absolute Auto 2.2 X10*3/uL (1.2-4.9); Lymphocytes Percent Auto 27.9 % (20-40); Mean Corpuscular HGB Conc 34.8 g/dl (31.0-35.0); Mean Corpuscular Volume 106.5 fL (80.0-98.0); Mean Platelet Volume 10.4 fL (9.4-12.3); Monocytes Absolute Auto 0.8 X10*3/uL (0.1-1.2); Monocytes Percent Auto 10.5 % (2-11); Neutrophils Absolute Auto 4.3 x10*3/uL (2.0-8.3); Platelet Count 398 X10*3/uL (160-400); Red Blood Count 3.08 X10*6/uL (4.20-5.50); Red Cell Distribution Width 14.4 % (11.0-16.0); White Blood Count 7.9 X10*3/uL (4.8-10.8)
[2021-10-29 07:30] LABS: Alanine Aminotransferase 22 U/L (0-31); Albumin Level 3.2 g/dL (3.5-5.0); Alkaline Phosphatase 78 U/L (39-117); Aspartate Amino Transferase 26 U/L (5-31); Bilirubin Total 0.9 mg/dL (0.0-1.0); Blood Urea Nitrogen 7 mg/dL (9-16); Calcium 6.9 mg/dL (8.4-10.2); Estimated Glomerular Filt Rate > 60; Glucose Fasting 122 mg/dL (60-99); Total Protein 5.7 g/dL (6.5-8.0)
[2021-10-29 07:42] LABS: Vitamin D 25-OH Total 5.3 ng/mL (>30)
[2021-10-29 07:49] VITALS: BP 139/82; PULSE 95; RESP 20; TEMP 37; O2SAT 97
[2021-10-29 07:50] LABS: Anion Gap 16 (12-20); Carbon Dioxide 22 mmol/L (22-29); Chloride 104 mmol/L (96-108); Magnesium 1.4 mg/dL (1.6-2.6); Sodium 139 mmol/L (135-145)
[2021-10-29] MEDS: Magnesium Sulfate/H2O 2 GM/50 ML PIGGYBACK IV (08:32)
[2021-10-29] MEDS: Thiamine HCL 500 MG in 0.9 % Sodium Chloride 100 ML 210 MG IV ×3 (08:32→22:14)
[2021-10-29] MEDS: Furosemide 20 MG TABLET PO (08:33)
[2021-10-29] MEDS: Folic Acid 1 MG TABLET PO (08:33)
[2021-10-29] MEDS: buPROPion HCl XL 300 MG TAB.ER.24H PO (08:33)
[2021-10-29] MEDS: Metoprolol Succinate ER 50 MG TAB.ER.24H PO (08:33)
[2021-10-29] MEDS: lisinopriL 20 MG TABLET PO (08:33)
[2021-10-29] MEDS: Potassium Chloride Packet 20 MEQ PACKET 40 MEQ PO ×2 (08:33→12:44)
[2021-10-29] MEDS: 0.9 % Sodium Chloride Flush 3 ML SYRINGE IVFLUSH ×3 (08:34→22:20)
[2021-10-29] MEDS: Calcium Gluconate/NaCl,Iso-Osm 2 GM/100 ML PLAST..BAG IV (10:52)
[2021-10-29] MEDS: Fluticasone Propionate Nasal 16 GM SPRAY 1 SPRAY NOSTRIL-B (10:52)
[2021-10-29 11:15] VITALS: BP 115/81; PULSE 95; RESP 20; TEMP 36.9; O2SAT 98
[2021-10-29] MEDS: Cholecalciferol (Vitamin D3) 25 MCG TABLET 50 MCG PO (12:43)
--- NOTE | 2021-10-29 13:13 | MHC.CLN ---
RE: CONSULT PT REPORTED HER USUAL BODY WT 190# CURRENT WT 185# PT REPORTS WT LOSS ALTHOUGH DOES NOT KNOW HOW MUCH PT SAIDS HER APPETITE WAS POOR FOR A FEW MONTHS AND SHE WAS NOT DRINKING FLUIDS AND ONLY EATING 1 YOGURT PER DAY PRIOR TO ADMISSION.PT REPORTS HER POOR APPETITE WAS DUE TO STRESS, AND SHE HAS NO DESIRE TO GAIN ANY OF THE WT BACK. PT DOES NOT WANT NUTRITION SUPPLEMENTS. PT FOLLOWS GLUTEN FREE DIET AT HOME. PT STATES FOR PAST 3 DAYS, I CAN NOT GET ENOUGH FOOD -EATING AND DRINKING UPON INTERVIEW 100% OF MEAL NO NEW ORDERS AT THIS TIME CONTINUE CURRENT CARE PLAN
--- NOTE | 2021-10-29 14:25 | MHC.CM.PN ---
Per MD rounds no discharge today. Plan to replace LYTES K+,MG+and baltazar very low. Per MD no Vit D found. DP Home with or with out services Patients will provide transportation home.
--- NOTE | 2021-10-29 15:24 | P.PNIM_ITS ---
Subjective Subjective Date of Service: 10/29/21 Interval History: Improved but noted with repletion of divalents Review of Systems Denies chest pain Denies shortness of breath Denies nausea vomiting diarrhea Denies abdominal pain fever chills Physical Exam Vital Signs: Vital Signs: Last Vital Signs Temp 98.5 F 10/29/21 11:15 Pulse 95 10/29/21 11:15 Resp 20 10/29/21 11:15 BP 115/81 10/29/21 11:15 Pulse Ox 98 10/29/21 11:15 O2 Del Method 10/29/21 11:15 BMI result Body Mass Index 29.0 Const: Other: Awake alert no acute distress Resp: Other: Clear to auscultation bilaterally no rales rhonchi or wheezes Cardio: Other: No S4; positive S1-S2; no S3 murmurs rubs or gallops GI: Other: Soft nontender nondistended with normoactive bowel sounds Neuro: Other: Cranial nerves 2-12 grossly intact as tested .Motor 5/5 all extremities however unable to stand without assist. Cognition appropriate Extrem: Other: No edema bilaterally Objective Data Active Medications Acetaminophen (Acetaminophen 325 Mg Tablet) 650 mg PO Q6H PRN PRN Reason: Pain, Mild (Pain Scale 1-3) Atorvastatin Calcium (Atorvastatin Calcium 40 Mg Tablet) 40 mg PO BEDTIME [facility] Last Admin: 10/28/21 20:35 Dose: 40 mg Documented By: FERNANDEZ Bupropion HCl (Bupropion Hcl Xl 300 Mg Tab.Er.24h) 300 mg PO DAILY [facility] Last Admin: 10/29/21 08:33 Dose: 300 mg Documented By: ARLENE Calcium Carbonate (Calcium Carbonate 500 Mg Tablet) 500 mg PO TID [facility] Last Admin: 10/29/21 08:33 Dose: 500 mg Documented By: ARLENE Docusate Sodium (Docusate Sodium 100 Mg Capsule) 100 mg PO DAILY PRN PRN Reason: Constipation Fluticasone Propionate (Fluticasone Propionate Nasal 16 Gm [place]) 1 spray NOSTRIL-B DAILY [facility] Last Admin: 10/29/21 10:52 Dose: 1 spray Documented By: ARLENE Folic Acid (Folic Acid 1 Mg Tablet) 1 mg PO DAILY [facility] Last Admin: 10/29/21 08:33 Dose: 1 mg Documented By: ARLENE Furosemide (Furosemide 20 Mg Tablet) 20 mg PO DAILY [facility]; Protocol Last Admin: 10/29/21 08:33 Dose: 20 mg Documented By: ARLENE Thiamine HCl 500 mg/ Sodium (Chloride) 105 mls @ 210 mls/hr IV TID [facility] Last Infusion: 10/29/21 09:10 Dose: 0 mls/hr Documented By: ARLENE Lisinopril (Lisinopril 20 Mg Tablet) 20 mg PO DAILY [facility]; Protocol Last Admin: 10/29/21 08:33 Dose: 20 mg Documented By: ARLENE Lorazepam (Lorazepam 0.5 Mg Tablet) 0.5 mg PO DAILY PRN PRN Reason: Anxiety Last Admin: 10/28/21 20:35 Dose: 0.5 mg Documented By: FERNANDEZ Metoprolol Succinate (Metoprolol Succinate Er 50 Mg Tab.Er.24h) 50 mg PO DAILY [facility]; Protocol Last Admin: 10/29/21 08:33 Dose: 50 mg Documented By: ARLENE Omeprazole (Omeprazole 20 Mg Capsule.Dr) 20 mg PO DAILY@0630 [facility] Last Admin: 10/29/21 05:54 Dose: 20 mg Documented By: FERNANDEZ Ondansetron HCl (Ondansetron Hcl 4 Mg/2 Ml Vial) 4 mg IVPUSH Q8H PRN PRN Reason: Nausea and Vomiting Pharmacy Consult (Consult Rx Perform Med Rec) 1 each MISCELLANE ONCE PRN PRN Reason: Consult order Sodium Chloride (0.9 % Sodium Chloride Flush 3 Ml Syringe) 3 ml IVFLUSH QSHIFT [facility] Last Admin: 10/29/21 08:34 Dose: 3 ml Documented By: ARLENE Vitamin D (Cholecalciferol (Vitamin D3) 25 Mcg Tablet) 50 mcg PO DAILY [facility] Last Admin: 10/29/21 12:43 Dose: 50 mcg Documented By: ARLENE Labs CBC & Chem 7: 10/29/21 06:28 10/29/21 06:28 Labs: Laboratory Results - last 24 hr 10/29/21 10/29/21 10/29/21 06:28 06:28 06:28 MCV 106.5 H MCH 37.0 H MCHC 34.8 RDW 14.4 Plt Count 398 MPV 10.4 Immature Gran % (Auto) 0.4 Neut % (Auto) 55.0 Lymph % (Auto) 27.9 [place] % (Auto) 10.5 Eos % (Auto) 3.9 Baso % (Auto) 2.3 H Lymph # (Auto) 2.2 [place] # (Auto) 0.8 Eos # (Auto) 0.3 Baso # (Auto) 0.2 Abs Immat Gran (auto) 0.03 Absolute Neuts (auto) 4.3 Absolute Nucleated RBC 0.000 Nucleated RBC % (auto) 0.0 Anion Gap 16 Estim Creat Clear Calc 89.0 Estimated GFR > 60 Fasting Glucose 122 H Calcium 6.9 L Magnesium 1.4 L* Total Bilirubin 0.9 AST 26 ALT 22 Alkaline Phosphatase 78 Total Protein 5.7 L D Albumin 3.2 L D 25-OH Vitamin D Total 5.3 Assessment and Plan (1) Difficulty in walking: Status: Acute (2) Hypomagnesemia: Status: Acute (3) Essential hypertension: Status: Acute Plan This 61-year-old female with history of hypertension, and aortic stenosis p resents to the hospital with increased confusion, weakness and difficulty ambulating. Initial workup significant for hypokalemia, hypomagnesemia and hypocalcemia 1. Acute onset difficulty ambulation - aggressively replete potassium/ magnesium/calcium - started on thiamine 500 mg IV b.i.d. - vitamin-D less than 5. . . Replete orally -LP 11/01/21 2.Hypomagnesemia , hypocalcemia - aggressive repletion -follow renals/divalents 3. HTN -acceptable control on current therapies -adjust as indicated Lovenox Full code Will require ongoing hospitalizations for aggressive repletion of Diovan Lantus and further workup of weakness Quality Stroke Does the patient have a stroke diagnosis?: No VTE Prior VTE?: No VTE Risk Level:: Medical - moderate - high VTE Device Contraindication: Treatment Not Indicated VTE Drug Contraindication: N/A - Med Ordered
[2021-10-29 16:30] VITALS: BP 119/70; PULSE 92; RESP 20; TEMP 37.1; O2SAT 97
[2021-10-29] MEDS: Acetaminophen 325 MG TABLET 650 MG PO ×2 (17:35→23:51)
[2021-10-29 20:00] VITALS: BP 127/71; PULSE 83; RESP 18; TEMP 37.1; O2SAT 98
[2021-10-29] MEDS: Atorvastatin Calcium 40 MG TABLET PO (22:15)
[2021-10-29] MEDS: oxyCODONE HCl Immed Release 5 MG TABLET PO (22:39)
[2021-10-30] VITALS (7 sets, daily range): BP systolic 124–185; BP diastolic 68–97; PULSE 72–79; RESP 16–20; TEMP 36.3–37.3; O2SAT 95–98
[2021-10-30] MEDS: Omeprazole 20 MG CAPSULE.DR PO (06:08)
[2021-10-30 06:24] LABS: MANUAL DIFF FLAG NO
[2021-10-30 06:31] LABS: Basophils Absolute Auto 0.1 X10*3/uL (0.0-0.2); Basophils Percent Auto 1.5 % (0-2); Eosinophils Absolute Auto 0.3 X10*3/uL (0.0-0.4); Eosinophils Percent Auto 3.8 % (0-4); Hemoglobin 10.2 g/dl (12.0-16.0); Imm Gran Abs Auto 0.02 X10*3/uL (0.00-0.03); Imm Gran Pct Auto 0.2 % (0.0-0.4); Lymphocytes Absolute Auto 2.7 X10*3/uL (1.2-4.9); Lymphocytes Percent Auto 33.3 % (20-40); Mean Corpuscular Hemoglobin 35.9 pg (27.0-33.0); Mean Corpuscular Volume 105.6 fL (80.0-98.0); Mean Platelet Volume 10.1 fL (9.4-12.3); Monocytes Absolute Auto 0.9 X10*3/uL (0.1-1.2); Monocytes Percent Auto 10.9 % (2-11); Neutrophils Absolute Auto 4.1 x10*3/uL (2.0-8.3); Neutrophils Percent Auto 50.3 % (45-73); Platelet Count 400 X10*3/uL (160-400); Red Blood Count 2.84 X10*6/uL (4.20-5.50); Red Cell Distribution Width 14.1 % (11.0-16.0); White Blood Count 8.1 X10*3/uL (4.8-10.8)
[2021-10-30 07:29] LABS: Alanine Aminotransferase 22 U/L (0-31); Albumin Level 3.2 g/dL (3.5-5.0); Alkaline Phosphatase 74 U/L (39-117); Anion Gap 15 (12-20); Aspartate Amino Transferase 25 U/L (5-31); Bilirubin Total 0.7 mg/dL (0.0-1.0); Blood Urea Nitrogen 6 mg/dL (9-16); Calcium 7.4 mg/dL (8.4-10.2); Carbon Dioxide 22 mmol/L (22-29); Chloride 104 mmol/L (96-108); Creatinine Clr Calc Pharmacy 90.3; Estimated Glomerular Filt Rate > 60; Glucose Fasting 83 mg/dL (60-99); Magnesium 1.2 mg/dL (1.6-2.6); Potassium 3.8 mmol/L (3.3-5.1); Sodium 137 mmol/L (135-145); Total Protein 5.6 g/dL (6.5-8.0)
[2021-10-30] MEDS: Acetaminophen 325 MG TABLET 650 MG PO ×2 (08:00→17:02)
[2021-10-30] MEDS: buPROPion HCl XL 300 MG TAB.ER.24H PO (08:01)
[2021-10-30] MEDS: Folic Acid 1 MG TABLET PO (08:01)
[2021-10-30] MEDS: Cholecalciferol (Vitamin D3) 25 MCG TABLET 50 MCG PO (08:01)
[2021-10-30] MEDS: Magnesium Sulfate/H2O 2 GM/50 ML PIGGYBACK IV ×2 (08:02→13:49)
[2021-10-30] MEDS: Furosemide 20 MG TABLET PO (08:02)
[2021-10-30] MEDS: Metoprolol Succinate ER 50 MG TAB.ER.24H PO (08:02)
[2021-10-30] MEDS: 0.9 % Sodium Chloride Flush 3 ML SYRINGE IVFLUSH ×3 (08:02→21:27)
[2021-10-30] MEDS: lisinopriL 20 MG TABLET PO (08:02)
[2021-10-30] MEDS: Fluticasone Propionate Nasal 16 GM SPRAY 1 SPRAY NOSTRIL-B (08:03)
[2021-10-30] MEDS: Thiamine HCL 500 MG in 0.9 % Sodium Chloride 100 ML 210 MG IV ×3 (10:36→21:22)
--- NOTE | 2021-10-30 13:28 | P.PNIM_ITS ---
Subjective Subjective Date of Service: 10/30/21 Interval History: f/u on weakness, difficulty ambulating low mag, calcium and potassium interval history: better, K is better, mag and calcium still low Review of Systems Denies chest pain Denies shortness of breath Denies nausea vomiting diarrhea Denies abdominal pain fever chills Physical Exam Vital Signs: Vital Signs: Last Vital Signs Temp 97.9 F 10/30/21 08:00 Pulse 72 10/30/21 08:00 Resp 20 10/30/21 08:00 BP 185/97 H 10/30/21 08:00 Pulse Ox 97 10/30/21 08:00 O2 Del Method 10/30/21 08:00 BMI result Body Mass Index 29.0 Objective Data Active Medications Acetaminophen (Acetaminophen 325 Mg Tablet) 650 mg PO Q6H PRN PRN Reason: Pain, Mild (Pain Scale 1-3) Last Admin: 10/30/21 08:00 Dose: 650 mg Documented By: ARISTIDES Atorvastatin Calcium (Atorvastatin Calcium 40 Mg Tablet) 40 mg PO BEDTIME [facility] Last Admin: 10/29/21 22:15 Dose: 40 mg Documented By: MARY Bupropion HCl (Bupropion Hcl Xl 300 Mg Tab.Er.24h) 300 mg PO DAILY [facility] Last Admin: 10/30/21 08:01 Dose: 300 mg Documented By: ARISTIDES Calcium Carbonate (Calcium Carbonate 500 Mg Tablet) 500 mg PO TID [facility] Last Admin: 10/30/21 08:01 Dose: 500 mg Documented By: ARISTIDES Docusate Sodium (Docusate Sodium 100 Mg Capsule) 100 mg PO DAILY PRN PRN Reason: Constipation Fluticasone Propionate (Fluticasone Propionate Nasal 16 Gm [place]) 1 spray NOSTRIL-B DAILY [facility] Last Admin: 10/30/21 08:03 Dose: 1 spray Documented By: ARISTIDES Folic Acid (Folic Acid 1 Mg Tablet) 1 mg PO DAILY [facility] Last Admin: 10/30/21 08:01 Dose: 1 mg Documented By: ARISTIDES Furosemide (Furosemide 20 Mg Tablet) 20 mg PO DAILY [facility]; Protocol Last Admin: 10/30/21 08:02 Dose: 20 mg Documented By: ARISTIDES Thiamine HCl 500 mg/ Sodium (Chloride) 105 mls @ 210 mls/hr IV TID [facility] Last Infusion: 10/30/21 11:18 Dose: 0 mls/hr Documented By: ARISTIDES Lisinopril (Lisinopril 20 Mg Tablet) 20 mg PO DAILY [facility]; Protocol Last Admin: 10/30/21 08:02 Dose: 20 mg Documented By: ARISTIDES Lorazepam (Lorazepam 0.5 Mg Tablet) 0.5 mg PO DAILY PRN PRN Reason: Anxiety Last Admin: 10/28/21 20:35 Dose: 0.5 mg Documented By: FERNANDEZ Metoprolol Succinate (Metoprolol Succinate Er 50 Mg Tab.Er.24h) 50 mg PO DAILY [facility]; Protocol Last Admin: 10/30/21 08:02 Dose: 50 mg Documented By: ARISTIDES Omeprazole (Omeprazole 20 Mg Capsule.Dr) 20 mg PO DAILY@0630 [facility] Last Admin: 10/30/21 06:08 Dose: 20 mg Documented By: DILIA Ondansetron HCl (Ondansetron Hcl 4 Mg/2 Ml Vial) 4 mg IVPUSH Q8H PRN PRN Reason: Nausea and Vomiting Pharmacy Consult (Consult Rx Perform Med Rec) 1 each MISCELLANE ONCE PRN PRN Reason: Consult order Sodium Chloride (0.9 % Sodium Chloride Flush 3 Ml Syringe) 3 ml IVFLUSH QSHIFT [facility] Last Admin: 10/30/21 08:02 Dose: 3 ml Documented By: ARISTIDES Vitamin D (Cholecalciferol (Vitamin D3) 25 Mcg Tablet) 50 mcg PO DAILY [facility] Last Admin: 10/30/21 08:01 Dose: 50 mcg Documented By: ARISTIDES Labs CBC & Chem 7: 10/30/21 05:56 10/30/21 05:56 Labs: Laboratory Results - last 24 hr 10/30/21 10/30/21 05:56 05:56 MCV 105.6 H MCH 35.9 H MCHC 34.0 RDW 14.1 Plt Count 400 MPV 10.1 Immature Gran % (Auto) 0.2 Neut % (Auto) 50.3 Lymph % (Auto) 33.3 [place] % (Auto) 10.9 Eos % (Auto) 3.8 Baso % (Auto) 1.5 Lymph # (Auto) 2.7 [place] # (Auto) 0.9 Eos # (Auto) 0.3 Baso # (Auto) 0.1 Abs Immat Gran (auto) 0.02 Absolute Neuts (auto) 4.1 Absolute Nucleated RBC 0.000 Nucleated RBC % (auto) 0.0 Anion Gap 15 Estim Creat Clear Calc 90.3 Estimated GFR > 60 Fasting Glucose 83 Calcium 7.4 L D Magnesium 1.2 L* Total Bilirubin 0.7 AST 25 ALT 22 Alkaline Phosphatase 74 Total Protein 5.6 L Albumin 3.2 L Assessment and Plan (1) Difficulty in walking: Status: Acute (2) Hypomagnesemia: Status: Acute (3) Essential hypertension: Status: Acute Plan 61-year-old female with history of hypertension, and aortic stenosis presents to the hospital with increased confusion, weakness and difficulty ambulating. Initial workup significant for hypokalemia, hypomagnesemia and hypocalcemia 1. Acute onset difficulty ambulation in setting of hypokalemia, hypOcalcemia and HypOkalemia -replete electrolytes, mag and reassess and if still not improve then LP on 11/01 - started on thiamine 500 mg IV b.i.d. - vitamin-D less than 5. . . Replete orally 2.Hypomagnesemia , hypocalcemia - aggressive repletion -follow renals/divalents 3. HTN--Very variable, monitor for trend - no change in meds at this time. Lovenox Full code ongoing hospitalization for weakness related to electrolytes and need to replete IV, PO and frequent monitoring Quality Stroke Does the patient have a stroke diagnosis?: No VTE Prior VTE?: No VTE Risk Level:: Medical - moderate - high VTE Device Contraindication: Treatment Not Indicated VTE Drug Contraindication: N/A - Med Ordered
[2021-10-30] MEDS: Atorvastatin Calcium 40 MG TABLET PO (21:23)
[2021-10-31] VITALS (7 sets, daily range): BP systolic 158–187; BP diastolic 68–110; PULSE 58–76; RESP 16–20; TEMP 36.1–37.3; O2SAT 97–99
[2021-10-31] MEDS: Omeprazole 20 MG CAPSULE.DR PO (05:46)
[2021-10-31 06:48] LABS: MANUAL DIFF FLAG NO
[2021-10-31 06:52] LABS: Basophils Absolute Auto 0.2 X10*3/uL (0.0-0.2); Basophils Percent Auto 2.3 % (0-2); Eosinophils Absolute Auto 0.3 X10*3/uL (0.0-0.4); Hematocrit 34.1 % (37.0-47.0); Hemoglobin 11.4 g/dl (12.0-16.0); Imm Gran Abs Auto 0.03 X10*3/uL (0.00-0.03); Imm Gran Pct Auto 0.5 % (0.0-0.4); Lymphocytes Percent Auto 30.1 % (20-40); Mean Corpuscular HGB Conc 33.4 g/dl (31.0-35.0); Mean Corpuscular Hemoglobin 35.8 pg (27.0-33.0); Mean Corpuscular Volume 107.2 fL (80.0-98.0); Mean Platelet Volume 10.2 fL (9.4-12.3); Monocytes Absolute Auto 0.8 X10*3/uL (0.1-1.2); Monocytes Percent Auto 11.7 % (2-11); Neutrophils Absolute Auto 3.3 x10*3/uL (2.0-8.3); Neutrophils Percent Auto 50.4 % (45-73); Platelet Count 433 X10*3/uL (160-400); Red Blood Count 3.18 X10*6/uL (4.20-5.50); White Blood Count 6.6 X10*3/uL (4.8-10.8)
[2021-10-31 07:32] LABS: Alanine Aminotransferase 23 U/L (0-31); Albumin Level 3.4 g/dL (3.5-5.0); Alkaline Phosphatase 78 U/L (39-117); Anion Gap 14 (12-20); Aspartate Amino Transferase 27 U/L (5-31); Bilirubin Total 0.5 mg/dL (0.0-1.0); Blood Urea Nitrogen 11 mg/dL (9-16); Calcium 8.4 mg/dL (8.4-10.2); Carbon Dioxide 26 mmol/L (22-29); Chloride 103 mmol/L (96-108); Creatinine Clr Calc Pharmacy 83.2; Estimated Glomerular Filt Rate > 60; Glucose Fasting 79 mg/dL (60-99); Potassium 4.7 mmol/L (3.3-5.1); Sodium 138 mmol/L (135-145)
--- NOTE | 2021-10-31 09:27 | P.PNIM_ITS ---
Subjective Subjective Date of Service: 10/31/21 Interval History: f/u on weakness, difficulty ambulating low mag, calcium and potassium interval history: continue to improve mag, K within normal Review of Systems Denies chest pain Denies shortness of breath Denies nausea vomiting diarrhea Denies abdominal pain fever chills Physical Exam Vital Signs: Vital Signs: Last Vital Signs Temp 98.0 F 10/31/21 08:00 Pulse 74 10/31/21 08:00 Resp 20 10/31/21 08:00 BP 187/82 H 10/31/21 08:00 Pulse Ox 97 10/31/21 08:00 O2 Del Method 10/31/21 08:00 BMI result Body Mass Index 29.0 Objective Data Active Medications Acetaminophen (Acetaminophen 325 Mg Tablet) 650 mg PO Q6H PRN PRN Reason: Pain, Mild (Pain Scale 1-3) Last Admin: 10/30/21 17:02 Dose: 650 mg Documented By: ARISTIDES Atorvastatin Calcium (Atorvastatin Calcium 40 Mg Tablet) 40 mg PO BEDTIME [facility] Last Admin: 10/30/21 21:23 Dose: 40 mg Documented By: MARY Bupropion HCl (Bupropion Hcl Xl 300 Mg Tab.Er.24h) 300 mg PO DAILY [facility] Last Admin: 10/30/21 08:01 Dose: 300 mg Documented By: ARISTIDES Calcium Carbonate (Calcium Carbonate 500 Mg Tablet) 500 mg PO TID [facility] Last Admin: 10/30/21 21:23 Dose: 500 mg Documented By: MARY Docusate Sodium (Docusate Sodium 100 Mg Capsule) 100 mg PO DAILY PRN PRN Reason: Constipation Fluticasone Propionate (Fluticasone Propionate Nasal 16 Gm Sharples) 1 spray NOSTRIL-B DAILY [facility] Last Admin: 10/30/21 08:03 Dose: 1 spray Documented By: ARISTIDES Folic Acid (Folic Acid 1 Mg Tablet) 1 mg PO DAILY [facility] Last Admin: 10/30/21 08:01 Dose: 1 mg Documented By: ARISTIDES Furosemide (Furosemide 20 Mg Tablet) 20 mg PO DAILY [facility]; Protocol Last Admin: 10/30/21 08:02 Dose: 20 mg Documented By: ARISTIDES Thiamine HCl 500 mg/ Sodium (Chloride) 105 mls @ 210 mls/hr IV TID [facility] Last Infusion: 10/30/21 23:21 Dose: 0 mls/hr Documented By: MARY Lisinopril (Lisinopril 20 Mg Tablet) 20 mg PO DAILY [facility]; Protocol Last Admin: 10/30/21 08:02 Dose: 20 mg Documented By: ARISTIDES Lorazepam (Lorazepam 0.5 Mg Tablet) 0.5 mg PO DAILY PRN PRN Reason: Anxiety Last Admin: 10/28/21 20:35 Dose: 0.5 mg Documented By: FERNANDEZ Metoprolol Succinate (Metoprolol Succinate Er 50 Mg Tab.Er.24h) 50 mg PO DAILY [facility]; Protocol Last Admin: 10/30/21 08:02 Dose: 50 mg Documented By: ARISTIDES Omeprazole (Omeprazole 20 Mg Capsule.Dr) 20 mg PO DAILY@0630 [facility] Last Admin: 10/31/21 05:46 Dose: 20 mg Documented By: DANIELTEKDakota Ondansetron HCl (Ondansetron Hcl 4 Mg/2 Ml Vial) 4 mg IVPUSH Q8H PRN PRN Reason: Nausea and Vomiting Pharmacy Consult (Consult Rx Perform Med Rec) 1 each MISCELLANE ONCE PRN PRN Reason: Consult order Sodium Chloride (0.9 % Sodium Chloride Flush 3 Ml Syringe) 3 ml IVFLUSH QSHIFT [facility] Last Admin: 10/30/21 21:27 Dose: 3 ml Documented By: MARY Vitamin D (Cholecalciferol (Vitamin D3) 25 Mcg Tablet) 50 mcg PO DAILY [facility] Last Admin: 10/30/21 08:01 Dose: 50 mcg Documented By: ARISTIDES Labs CBC & Chem 7: 10/31/21 06:19 10/31/21 06:19 Labs: Laboratory Results - last 24 hr 10/31/21 10/31/21 06:19 06:19 MCV 107.2 H MCH 35.8 H MCHC 33.4 RDW 14.0 Plt Count 433 H MPV 10.2 Immature Gran % (Auto) 0.5 H Neut % (Auto) 50.4 Lymph % (Auto) 30.1 [place] % (Auto) 11.7 H Eos % (Auto) 5.0 H Baso % (Auto) 2.3 H Lymph # (Auto) 2.0 [place] # (Auto) 0.8 Eos # (Auto) 0.3 Baso # (Auto) 0.2 Abs Immat Gran (auto) 0.03 Absolute Neuts (auto) 3.3 Absolute Nucleated RBC 0.000 Nucleated RBC % (auto) 0.0 Anion Gap 14 Estim Creat Clear Calc 83.2 Estimated GFR > 60 Fasting Glucose 79 Calcium 8.4 D Magnesium 2.0 Total Bilirubin 0.5 AST 27 ALT 23 Alkaline Phosphatase 78 Total Protein 6.0 L Albumin 3.4 L Assessment and Plan (1) Difficulty in walking: Status: Acute (2) Hypomagnesemia: Status: Acute (3) Essential hypertension: Status: Acute Plan 61-year-old female with history of hypertension, and aortic stenosis presents to the hospital with increased confusion, weakness and difficulty ambulating. Initial workup significant for hypokalemia, hypomagnesemia and hypocalcemia 1. Acute onset difficulty ambulation in setting of hypokalemia, hypOcalcemia and HypOkalemia -repleted electrolytes, mag and seem better -Neuro recommends LP tomorrow to check CSF glucose protein and cells to see if there is any significant elevation of CSF protein - started on thiamine 500 mg IV b.i.d. - vitamin-D less than 5. . . Replete orally 2.Hypomagnesemia repleted and now 2 3. Hypocalcemia --oral calcium 3. HTN--Very variable, monitor for trend - no change in meds at this time. Lovenox Full code ongoing hospitalization for weakness related to electrolytes and need to replete IV, PO and frequent monitoring Quality Stroke Does the patient have a stroke diagnosis?: No VTE Prior VTE?: No VTE Risk Level:: Medical - moderate - high VTE Device Contraindication: Treatment Not Indicated VTE Drug Contraindication: N/A - Med Ordered
[2021-10-31] MEDS: Cholecalciferol (Vitamin D3) 25 MCG TABLET 50 MCG PO (10:58)
[2021-10-31] MEDS: Fluticasone Propionate Nasal 16 GM SPRAY 1 SPRAY NOSTRIL-B (10:58)
[2021-10-31] MEDS: Furosemide 20 MG TABLET PO (10:58)
[2021-10-31] MEDS: 0.9 % Sodium Chloride Flush 3 ML SYRINGE IVFLUSH ×3 (10:58→21:16)
[2021-10-31] MEDS: buPROPion HCl XL 300 MG TAB.ER.24H PO (10:58)
[2021-10-31] MEDS: Folic Acid 1 MG TABLET PO (10:59)
[2021-10-31] MEDS: Metoprolol Succinate ER 50 MG TAB.ER.24H PO (10:59)
[2021-10-31] MEDS: Magnesium Oxide 400 MG TABLET PO ×2 (10:59→17:21)
[2021-10-31] MEDS: Thiamine HCL 500 MG in 0.9 % Sodium Chloride 100 ML 210 MG IV ×3 (10:59→21:16)
[2021-10-31] MEDS: lisinopriL 20 MG TABLET PO (10:59)
[2021-10-31 20:39] LABS: Glucose, Whole Blood 129 mg/dL (60-115)
[2021-10-31] MEDS: Atorvastatin Calcium 40 MG TABLET PO (21:16)
[2021-11-01] VITALS (8 sets, daily range): BP systolic 154–190; BP diastolic 82–110; PULSE 68–86; RESP 14–20; TEMP 36.3–37; O2SAT 94–99
[2021-11-01 07:43] LABS: Magnesium 1.4 mg/dL (1.6-2.6)
[2021-11-01 08:16] LABS: Glucose, Whole Blood 95 mg/dL (60-115)
[2021-11-01] MEDS: Magnesium Sulfate/H2O 2 GM/50 ML PIGGYBACK IV (09:22)
[2021-11-01] MEDS: Cholecalciferol (Vitamin D3) 25 MCG TABLET 50 MCG PO (09:23)
[2021-11-01] MEDS: Magnesium Oxide 400 MG TABLET PO ×2 (09:23→17:07)
[2021-11-01] MEDS: 0.9 % Sodium Chloride Flush 3 ML SYRINGE IVFLUSH ×3 (09:23→21:04)
[2021-11-01] MEDS: Furosemide 20 MG TABLET PO (09:23)
[2021-11-01] MEDS: Folic Acid 1 MG TABLET PO (09:23)
[2021-11-01] MEDS: buPROPion HCl XL 300 MG TAB.ER.24H PO (09:23)
[2021-11-01] MEDS: lisinopriL 20 MG TABLET PO (09:23)
[2021-11-01] MEDS: Metoprolol Succinate ER 50 MG TAB.ER.24H PO (09:23)
[2021-11-01] MEDS: Fluticasone Propionate Nasal 16 GM SPRAY 1 SPRAY NOSTRIL-B (09:24)
[2021-11-01 10:32] LABS: Vitamin B12 302 pg/mL (200-900)
--- NOTE | 2021-11-01 12:00 | MHC.CM.PN ---
PER MD ROUNDS, PT EXPECTED TO BE READY TO DC TOMORROW DCP: HOME NO SERVICES VIA FAMILY TRANSPORT
[2021-11-01] MEDS: Thiamine HCL 500 MG in 0.9 % Sodium Chloride 100 ML 210 MG IV ×3 (12:01→21:03)
--- NOTE | 2021-11-01 12:20 | P.PNIM_ITS ---
Subjective Subjective Date of Service: 11/01/21 Interval History: cc: ataxia interval history:ongiong difficulity walking Cardiovascular Cardiovascular: Reports no additional cardiovascular complaints Respiratory Respiratory: Reports no additional respiratory complaints Physical Exam Vital Signs: Vital Signs: Last Vital Signs Temp 98.2 F 11/01/21 11:38 Pulse 68 11/01/21 11:38 Resp 18 11/01/21 11:38 BP 167/92 H 11/01/21 11:38 Pulse Ox 98 11/01/21 11:38 O2 Del Method 11/01/21 11:38 BMI result Body Mass Index 29.0 General: AO X 3, no acute distress Resp: CTA bilateral, no accessory muscles used CVS: S1,S2,RRR GI: soft, non tender, non distended Neuro: ataxia, alert Psych: appropriate affect, appropriate insight Objective Data Active Medications Acetaminophen (Acetaminophen 325 Mg Tablet) 650 mg PO Q6H PRN PRN Reason: Pain, Mild (Pain Scale 1-3) Last Admin: 10/30/21 17:02 Dose: 650 mg Documented By: ARISTIDES Atorvastatin Calcium (Atorvastatin Calcium 40 Mg Tablet) 40 mg PO BEDTIME [facility] Last Admin: 10/31/21 21:16 Dose: 40 mg Documented By: DINA Bupropion HCl (Bupropion Hcl Xl 300 Mg Tab.Er.24h) 300 mg PO DAILY [facility] Last Admin: 11/01/21 09:23 Dose: 300 mg Documented By: ALAINA Calcium Carbonate (Calcium Carbonate 500 Mg Tablet) 500 mg PO TID [facility] Last Admin: 11/01/21 09:23 Dose: 500 mg Documented By: ALAINA Docusate Sodium (Docusate Sodium 100 Mg Capsule) 100 mg PO DAILY PRN PRN Reason: Constipation Fluticasone Propionate (Fluticasone Propionate Nasal 16 Gm [place]) 1 spray NOSTRIL-B DAILY [facility] Last Admin: 11/01/21 09:24 Dose: 1 spray Documented By: ALAINA Folic Acid (Folic Acid 1 Mg Tablet) 1 mg PO DAILY [facility] Last Admin: 11/01/21 09:23 Dose: 1 mg Documented By: ALAINA Furosemide (Furosemide 20 Mg Tablet) 20 mg PO DAILY [facility]; Protocol Last Admin: 11/01/21 09:23 Dose: 20 mg Documented By: ALAINA Thiamine HCl 500 mg/ Sodium (Chloride) 105 mls @ 210 mls/hr IV TID [facility] Last Admin: 11/01/21 12:01 Dose: 210 mls/hr Documented By: ALAINA Lisinopril (Lisinopril 20 Mg Tablet) 20 mg PO DAILY [facility]; Protocol Last Admin: 11/01/21 09:23 Dose: 20 mg Documented By: ALAINA Lorazepam (Lorazepam 0.5 Mg Tablet) 0.5 mg PO DAILY PRN PRN Reason: Anxiety Last Admin: 10/28/21 20:35 Dose: 0.5 mg Documented By: ANDREIAUMNATALEE Magnesium Oxide (Magnesium Oxide 400 Mg Tablet) 400 mg PO BIDPC [facility] Last Admin: 11/01/21 09:23 Dose: 400 mg Documented By: ALAINA Metoprolol Succinate (Metoprolol Succinate Er 50 Mg Tab.Er.24h) 50 mg PO DAILY [facility]; Protocol Last Admin: 11/01/21 09:23 Dose: 50 mg Documented By: ALAINA Omeprazole (Omeprazole 20 Mg Capsule.Dr) 20 mg PO DAILY@0630 [facility] Last Admin: 11/01/21 05:40 Dose: Not Given Documented By: DINA Non-Admin Reason: NPO Ondansetron HCl (Ondansetron Hcl 4 Mg/2 Ml Vial) 4 mg IVPUSH Q8H PRN PRN Reason: Nausea and Vomiting Pharmacy Consult (Consult Rx Perform Med Rec) 1 each MISCELLANE ONCE PRN PRN Reason: Consult order Sodium Chloride (0.9 % Sodium Chloride Flush 3 Ml Syringe) 3 ml IVFLUSH QSHIFT [facility] Last Admin: 11/01/21 09:23 Dose: 3 ml Documented By: ALAINA Vitamin D (Cholecalciferol (Vitamin D3) 25 Mcg Tablet) 50 mcg PO DAILY [facility] Last Admin: 11/01/21 09:23 Dose: 50 mcg Documented By: ALAINA Labs CBC & Chem 7: 10/31/21 06:19 10/31/21 06:19 Labs: Laboratory Results - last 24 hr 10/31/21 11/01/21 11/01/21 20:02 05:56 05:56 POC Glucose 129 H Magnesium 1.4 L* Vitamin B12 302 Folate 2.0 L 11/01/21 08:12 POC Glucose 95 Magnesium Vitamin B12 Folate Assessment and Plan (1) Difficulty in walking: Status: Acute (2) Hypomagnesemia: Status: Acute (3) Essential hypertension: Status: Acute Plan 61-year-old female with history of hypertension, and aortic stenosis presented to the hospital with increased confusion, weakness and difficulty ambulating. 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 Quality Stroke Does the patient have a stroke diagnosis?: No VTE Prior VTE?: No VTE Risk Level:: Medical - moderate - high VTE Device Contraindication: Treatment Not Indicated VTE Drug Contraindication: N/A - Med Ordered
[2021-11-01] MEDS: Cyanocobalamin (Vitamin B-12) 1,000 MCG/ML VIAL 1000 MCG IM (15:32)
[2021-11-01 15:47] LABS: Glucose, Whole Blood 88 mg/dL (60-115)
[2021-11-01 16:16] LABS: Glucose CSF 61 mg/dL
[2021-11-01 16:17] LABS: Appearance CSF CLEAR
[2021-11-01] MEDS: Enoxaparin Sodium 40 MG/0.4 ML SYRINGE SUBCUT (16:17)
[2021-11-01 16:18] LABS: CSF Tube # 4; Color CSF COLORLESS; Red Blood Cell CSF 2 MM*3; White Blood Cell CSF 4 MM*3
[2021-11-01 16:33] LABS: CSF Monos 20 %; CSF Other Cells % 40 %; Lymphocytes CSF 40 %
[2021-11-01] MEDS: Acetaminophen 325 MG TABLET 650 MG PO (17:08)
[2021-11-01 18:01] LABS: CSF Appearance Clear, Colorless; CSF Tube # 1
[2021-11-01 21:01] LABS: Glucose, Whole Blood 165 mg/dL (60-115)
[2021-11-01] MEDS: Atorvastatin Calcium 40 MG TABLET PO (21:03)
[2021-11-02] VITALS: RESP 16
[2021-11-02 02:52] VITALS: BP 158/95; PULSE 82; RESP 16; TEMP 36.9; O2SAT 97
[2021-11-02 07:27] LABS: Hematocrit 33.9 % (37.0-47.0); Hemoglobin 11.3 g/dl (12.0-16.0); Mean Corpuscular HGB Conc 33.3 g/dl (31.0-35.0); Mean Corpuscular Hemoglobin 35.4 pg (27.0-33.0); Mean Corpuscular Volume 106.3 fL (80.0-98.0); Mean Platelet Volume 9.6 fL (9.4-12.3); Platelet Count 427 X10*3/uL (160-400); Red Blood Count 3.19 X10*6/uL (4.20-5.50); Red Cell Distribution Width 14.4 % (11.0-16.0); White Blood Count 7.9 X10*3/uL (4.8-10.8)
[2021-11-02 07:33] VITALS: BP 162/100; PULSE 85; RESP 20; TEMP 37; O2SAT 98
[2021-11-02 07:50] LABS: Glucose, Whole Blood 116 mg/dL (60-115)
[2021-11-02 07:50] LABS: Anion Gap 16 (12-20); Blood Urea Nitrogen 9 mg/dL (9-16); Calcium 9.1 mg/dL (8.4-10.2); Carbon Dioxide 24 mmol/L (22-29); Chloride 103 mmol/L (96-108); Creatinine Clr Calc Pharmacy 80.1; Estimated Glomerular Filt Rate > 60; Glucose Fasting 90 mg/dL (60-99); Magnesium 1.7 mg/dL (1.6-2.6); Potassium 4.8 mmol/L (3.3-5.1); Sodium 138 mmol/L (135-145)
[2021-11-02] MEDS: Cholecalciferol (Vitamin D3) 25 MCG TABLET 50 MCG PO (08:22)
[2021-11-02] MEDS: 0.9 % Sodium Chloride Flush 3 ML SYRINGE IVFLUSH (08:22)
[2021-11-02] MEDS: Magnesium Oxide 400 MG TABLET PO (08:22)
[2021-11-02] MEDS: buPROPion HCl XL 300 MG TAB.ER.24H PO (08:23)
[2021-11-02] MEDS: Folic Acid 1 MG TABLET PO (08:23)
[2021-11-02] MEDS: lisinopriL 20 MG TABLET PO (08:23)
[2021-11-02] MEDS: Cyanocobalamin (Vitamin B-12) 1,000 MCG TABLET 1000 MCG PO (08:23)
[2021-11-02] MEDS: Metoprolol Succinate ER 50 MG TAB.ER.24H PO (08:24)
[2021-11-02] MEDS: Fluticasone Propionate Nasal 16 GM SPRAY 1 SPRAY NOSTRIL-B (08:24)
[2021-11-02] MEDS: Furosemide 20 MG TABLET PO (08:24)
[2021-11-02] MEDS: Thiamine HCL 500 MG in 0.9 % Sodium Chloride 100 ML 210 MG IV ×2 (09:28→13:34)
[2021-11-02 11:18] VITALS: BP 152/75; PULSE 100; RESP 20; TEMP 36.9; O2SAT 99
--- NOTE | 2021-11-02 11:31 | P.DS_ITS ---
DS: Providers Provider Date of Service: 11/02/21 Date of admission: 10/27/21 23:25 Primary care physician: Jaret Bailey MD Consults: 10/27/21 23:18 Consult to Neurology Routine Consulting Provider: [facility] Reason for consultation: nystagmus, consfusion, weakness Has provider been notified: No DS: Diagnosis Discharge Diagnosis (1) Difficulty in walking: Status: Acute (2) Hypomagnesemia: Status: Acute (3) Essential hypertension: Status: Acute DS: Summary Hospital Course Hospital Course: from initial hpi: Chief Complaint: weakness, confusion, difficulty walking This is a 61-year-old female with past medical history of hypertension, non rheumatoid aortic stenosis, who presents to the hospital brought in by her due to increased confusion, weakness, and difficulty walking.? When I spoke to the patient, she is alert, oriented to self and place, and able to give history appropriately.? She does appear disheveled a knotting that hygiene but otherwise no clear confusion based on history.? Patient reports that her family brought her in because she has had difficulty walking.? When I inquire further she does not give a good explanation for why she has trouble walking but reports that she has had trouble with pain in her foot and leg due to osteoarthritis and it snowballed from there no further explanation.? Patient reports that she does not feel confused she reports that she has been sleeping and eating well, she denies any chest pain, no abdominal pain nausea or vomiting, no diarrhea constipation, no urinary symptoms.? Patient reports that she has chronic right- sided swelling for over a year, she has chronic shortness of breath that has not increased, she denies any orthopnea or PND.? She denies any cough, no fever or chills.? No weakness numbness or tingling.? She denies any blurred or double vision. When asked about her drinking habits patient reports that she has not drank since August but used to be a daily drinker. On arrival to the ED patient hemodynamically stable slightly elevated blood pressure otherwise no abnormal vitals Labs are significant for WBC count of 10.0, hemoglobin of 13.1, medical 36.7, MCV of 103.9, potassium 3.5, calcium 6.6, magnesium of less than 0.6 total bili of 2.1, direct bili of 0.8, AST of 42, ALT of 44, ammonia of 28, troponin of 17 that increased to 18.5, Head CT showed no acute intracranial pathology, chronic volume loss and small- vessel ischemic change Patient was supposed to get MRI in the ED but had difficulty with claustrophobia and refused to undergo MRI Patient given IV magnesium, will be admitted for further management hospitalist course: Patient was admitted for ataxia likely multifactorial due to alcohol-related neuropathy as well as B12 and folate deficiencies. She was put on supplements. She had a lumbar puncture that was unremarkable. She also had several electrolyte abnormalities including hypomagnesemia, hypokalemia hypocalcemia due to hypervitaminosis D and hypomagnesemia. She has been placed on supplements for these as well. For her hypertension she was continue lisinopril and Toprol. course was complicated by urinary retention requiring zamorano catheter, patient did pass a voiding trial prior to discharge. Patient was not interested in skilled nurse facility and will be discharged home. Time Spent with Patient Time attestation: Total time spent providing and/or coordinating discharge services: Discharge coordination time: Greater than 30 minutes Quality: Safe Use of Opioids Does Pt have an Active Cancer Diagnosis on the Problem List?: No Quality: Stroke Does the patient have a stroke diagnosis?: No Physical Exam Vital Signs: Vital Signs: Last Vital Signs Temp 98.4 F 11/02/21 11:18 Pulse 100 11/02/21 11:18 Resp 20 11/02/21 11:18 BP 152/75 H 11/02/21 11:18 Pulse Ox 99 11/02/21 11:18 O2 Del Method 11/02/21 11:18 BMI result Body Mass Index 29.0 General: AO X 3, no acute distress Resp: CTA bilateral, no accessory muscles used CVS: S1,S2,RRR GI: soft, non tender, non distended Neuro: ataxia, alert Psych: appropriate affect, appropriate insight DS: Data Data Completed and Pending Labs on day of discharge: Laboratory Results - last 24 hr 11/01/21 11/01/21 11/01/21 15:25 20:57 Unknown WBC RBC Hgb Hct MCV MCH MCHC RDW Plt Count MPV Absolute Nucleated RBC Nucleated RBC % (auto) Sodium Potassium Chloride Carbon Dioxide Anion Gap BUN Creatinine Estim Creat Clear Calc Estimated GFR POC Glucose 88 165 H Fasting Glucose Calcium Magnesium CSF Tube Number 1 CSF Volume CSF Appearance CSF Color CSF WBC CSF RBC CSF Lymphocytes CSF Monocytes % CSF Other Cells % CSF Appearance (b) Clear, Colorless CSF Glucose 61 CSF Total Protein 32.0 11/01/21 11/02/21 11/02/21 Unknown 06:52 06:52 WBC 7.9 RBC 3.19 L Hgb 11.3 L Hct 33.9 L MCV 106.3 H MCH 35.4 H MCHC 33.3 RDW 14.4 Plt Count 427 H MPV 9.6 Absolute Nucleated RBC 0.000 Nucleated RBC % (auto) 0.0 Sodium 138 Potassium 4.8 Chloride 103 Carbon Dioxide 24 Anion Gap 16 BUN 9 Creatinine 0.80 Estim Creat Clear Calc 80.1 Estimated GFR > 60 POC Glucose Fasting Glucose 90 Calcium 9.1 D Magnesium 1.7 CSF Tube Number 4 CSF Volume 3.0 CSF Appearance CLEAR CSF Color COLORLESS CSF WBC 4 CSF RBC 2 CSF Lymphocytes 40 CSF Monocytes % 20 CSF Other Cells % 40 CSF Appearance (b) CSF Glucose CSF Total Protein 11/02/21 07:43 WBC RBC Hgb Hct MCV MCH MCHC RDW Plt Count MPV Absolute Nucleated RBC Nucleated RBC % (auto) Sodium Potassium Chloride Carbon Dioxide Anion Gap BUN Creatinine Estim Creat Clear Calc Estimated GFR POC Glucose 116 H Fasting Glucose Calcium Magnesium CSF Tube Number CSF Volume CSF Appearance CSF Color CSF WBC CSF RBC CSF Lymphocytes CSF Monocytes % CSF Other Cells % CSF Appearance (b) CSF Glucose CSF Total Protein Preliminary micro results at discharge 11/01/21 Unknown CSF Culture - Preliminary Cerebrospinal Fluid Culture in progress. Discharge Plan Discharge Patient Disposition: Home Health Service Discharge Diagnosis: neuropathy, ataxia Referrals: Jaret Bailey MD [Primary Care Provider] - 1 Week Discharge Medications: New calcium carbonate [Oyster Shell Calcium 500] 500 mg calcium (1,250 mg) Tablet 500 mg PO DAILY Qty: 30 0RF magnesium oxide 400 mg (241.3 mg magnesium) Tablet 400 mg PO BIDPC Qty: 60 0RF cholecalciferol (vitamin D3) 25 mcg (1,000 unit) Tablet 50 mcg PO DAILY Qty: 30 0RF cyanocobalamin (vitamin B-12) [Vitamin B-12] 1,000 mcg Tablet 1,000 mcg PO DAILY Qty: 30 0RF folic acid 1 mg Tablet 1 mg PO DAILY Qty: 30 0RF thiamine HCl (vitamin B1) 100 mg tablet 100 mg PO DAILY Qty: 30 0RF Continued lisinopril 20 mg tablet 20 mg PO DAILY Qty: 90 3RF lorazepam 0.5 mg tablet 1 tab PO DAILY PRN (Reason: Anxiety) metoprolol succinate 50 mg tablet extended release 24 hr 50 mg PO DAILY atorvastatin 40 mg tablet 40 mg PO DAILY bupropion HCl 300 mg tablet extended release 24 hr 300 mg PO DAILY omeprazole 20 mg capsule,delayed release(DR/EC) 20 mg PO DAILY fluticasone propionate 50 mcg/actuation spray,suspension 1 spray intranasal DAILY furosemide [Lasix] 20 mg tablet 20 mg PO DAILY Qty: 90 3RF Discharge Orders: Discharge Order (Routine); Ordered 11/02/21 Ordered By: Eulalio Valera Diet: Advance to usual diet Activity on Discharge: As tolerated Stand Alone Forms: Patient Portal Discharge page Care Plan Goals: recovery Health Concerns: multiple vitamin defeciencies, etoh neuropathy Plan of Treatment: vitamin supplements Assessment: see above
[2021-11-02] MEDS: Enoxaparin Sodium 40 MG/0.4 ML SYRINGE SUBCUT (13:33)
--- NOTE | 2021-11-02 14:29 | MHC.CM.PN ---
PT CLEARED TO DC TODAY WITH [facility] HOWEVER DUE TO PTS INSURANCE, NO [facility] WAS ABLE TO BE SECURED CM MADE A REFERRAL TO [facility] REQUESTING PT BE EVALUATED FOR HOME SERVICES FAMILY WILL TRANSPORT
[2021-11-03 06:29] LABS: Oligoclonal Serum Yes
== END 2021-11-02 15:59 | disposition home health service (06) | DRG 422 ==
LOC: HO.ED 22:43 → HO.EDOVER 10-28 05:35 → HO.IMC 10-28 17:51
PROVIDERS: Emergency Medicine; Hospitalist; Internal Medicine; Radiology Diagnostic Radiology; Admitting Provider Internal Medicine; Emergency Provider Internal Medicine; PCP Family Medicine; Visit Provider Internal Medicine
PROC: 009U3ZZ Drainage of Spinal Canal, Percutaneous Approach (ICD-10-PCS; CPT 62270; principal; 2021-11-01 14:30)
DX: E87.6 Hypokalemia (principal); E86.0 Dehydration; E51.2 Wernicke's encephalopathy; G62.1 Alcoholic polyneuropathy; E55.9 Vitamin D deficiency, unspecified; I35.0 Nonrheumatic aortic (valve) stenosis; R33.9 Retention of urine, unspecified; E53.8 Deficiency of other specified B group vitamins; I10 Essential (primary) hypertension; E78.5 Hyperlipidemia, unspecified; F10.21 Alcohol dependence, in remission; Z20.822 Contact with and (suspected) exposure to COVID-19; Z79.51 Long term (current) use of inhaled steroids; Z79.899 Other long term (current) drug therapy
CPT/HCPCS: 36415; 62328; 70450; 70551; 80048; 80053; 80076; 81003; 82140; 82306; 82607; 82746; 82945; 82947; 83735; 83880; 83916; 84157; 84484; 85025; 85027; 85610; 85730; 87015; 87070; 87205; 87635; 89051; 93005; 96361; 96365; 96366; 96367; 96375; 99285; J0610; J1650; J3360; J3411; J3475

== ENCOUNTER 2022-02-07 10:41 | Outpatient (REF) | payer OTHER, SELFPAY ==
[2022-02-07 14:12] LABS: Appearance Urine Clear; Color Urine Yellow; Glucose Urine UA Negative (Negative); Leukocyte Esterase Urine Trace (Negative); Nitrite Urine Negative (Negative); PH 5.5 (5.0-9.0); UMIC TRIGGER UACC YES; Urine Blood Negative (Negative); Urine Ketones Negative (Negative); Urine Protein Negative (Neg-Trace)
[2022-02-07 14:17] LABS: Bacteria Urine None Seen (None Seen); Hyaline Casts Urine 0-2 /LPF (0-2); RBC Urine 0-2 /HPF (0-2); Squamous Epithelial Cell Urine 0-2 /HPF (0-2); WBC Urine 0-5 /HPF (0-5)
== END 2022-02-07 10:42 | disposition home or self-care (01) ==
LOC: HO.HMGCLDS 10:41
PROVIDERS: PCP Family Medicine; Visit Provider Family Medicine
DX: N39.0 Urinary tract infection, site not specified (principal)
CPT/HCPCS: 81001; 87086

== ENCOUNTER 2022-02-28 11:39 | Outpatient (REF) | payer OTHER, SELFPAY ==
[2022-02-28 14:04] LABS: MANUAL DIFF FLAG NO
[2022-02-28 14:08] LABS: Basophils Absolute Auto 0.1 X10*3/uL (0.0-0.2); Basophils Percent Auto 1.1 % (0-2); Eosinophils Absolute Auto 0.2 X10*3/uL (0.0-0.4); Eosinophils Percent Auto 3.4 % (0-4); Hematocrit 38.7 % (37.0-47.0); Hemoglobin 11.8 g/dl (12.0-16.0); Imm Gran Abs Auto 0.02 X10*3/uL (0.00-0.03); Imm Gran Pct Auto 0.3 % (0.0-0.4); Lymphocytes Percent Auto 31.7 % (20-40); Mean Corpuscular HGB Conc 30.5 g/dl (31.0-35.0); Mean Corpuscular Hemoglobin 25.7 pg (27.0-33.0); Mean Corpuscular Volume 84.1 fL (80.0-98.0); Mean Platelet Volume 9.9 fL (9.4-12.3); Monocytes Absolute Auto 0.7 X10*3/uL (0.1-1.2); Monocytes Percent Auto 11.6 % (2-11); Neutrophils Absolute Auto 3.3 x10*3/uL (2.0-8.3); Neutrophils Percent Auto 51.9 % (45-73); Platelet Count 381 X10*3/uL (160-400); White Blood Count 6.4 X10*3/uL (4.8-10.8)
[2022-02-28 14:34] LABS: Alanine Aminotransferase 18 U/L (0-31); Albumin Level 4.5 g/dL (3.5-5.0); Alkaline Phosphatase 96 U/L (39-117); Anion Gap 14 (12-20); Aspartate Amino Transferase 22 U/L (5-31); Bilirubin Total 0.4 mg/dL (0.0-1.0); Blood Urea Nitrogen 13 mg/dL (9-16); Calcium 10.2 mg/dL (8.4-10.2); Carbon Dioxide 26 mmol/L (22-29); Chloride 102 mmol/L (96-108); Estimated Glomerular Filt Rate 49; Glucose Random 95 mg/dL (60-115); Magnesium 2.1 mg/dL (1.6-2.6); Phosphorus 4.8 mg/dL (2.7-4.5); Potassium 4.3 mmol/L (3.3-5.1); Sodium 138 mmol/L (135-145); Total Protein 7.4 g/dL (6.5-8.0)
[2022-02-28 14:43] LABS: Free T4 (Free Thyroxine) 1.12 ng/dL (0.71-1.85); Thyroid Stimulating Hormone 5.17 uIU/mL (0.32-4.0)
[2022-03-02 12:23] LABS: Calcium (PTHI) 10.1 mg/dL (8.6-10.4); PTHI 46 pg/mL (16-77)
[2022-03-04 19:39] LABS: FIB-ALT 14 U/L (6-29); FIB-Alpha-2-Macroglobulin 246 mg/dL (106-279); FIB-Apolipoprotein A1 219 mg/dL (101-198); FIB-GGT 36 U/L (3-65); FIB-Haptoglobin 104 mg/dL (43-212); FIB-Total Bilirubin 0.4 mg/dL (0.2-1.2); Liver Fibrosis Score 0.17; Liver Fibrosis Stage F0; Nec Inflam Act Grade A0; Nec Inflam Act Score 0.04
== END 2022-02-28 11:40 | disposition home or self-care (01) ==
LOC: HO.HMGCLDS 11:39
PROVIDERS: PCP Family Medicine; Visit Provider Family Medicine
DX: E03.9 Hypothyroidism, unspecified (principal); I10 Essential (primary) hypertension; G93.40 Encephalopathy, unspecified
CPT/HCPCS: 36415; 80053; 81596; 83735; 83970; 84100; 84439; 84443; 85025

== ENCOUNTER 2022-09-21 11:13 | Outpatient (REF) | payer OTHER, SELFPAY ==
[2022-09-21 13:53] LABS: Appearance Urine Clear; Color Urine Yellow; Glucose Urine UA Negative (Negative); Leukocyte Esterase Urine Moderate (2+) (Negative); Nitrite Urine Negative (Negative); PH 5.5 (5.0-9.0); UMIC TRIGGER UACC YES; Urine Blood Negative (Negative); Urine Ketones Negative (Negative); Urine Protein Negative (Neg-Trace)
[2022-09-21 14:09] LABS: Bacteria Urine Trace (None Seen); Calcium Oxalate Crystals Urine Present; Hyaline Casts Urine 0-2 /LPF (0-2); UACC Culture Trigger YES
== END 2022-09-21 11:14 | disposition home or self-care (01) ==
LOC: HO.LAB 11:13
PROVIDERS: PCP Family Medicine; Visit Provider Family Medicine
DX: R30.0 Dysuria (principal); Z87.440 Personal history of urinary (tract) infections
CPT/HCPCS: 81001; 87086

== ENCOUNTER 2022-11-18 12:10 | Outpatient (REF) | payer OTHER, SELFPAY ==
--- NOTE | ~2022-11-18 | XR_ITS ---
EXAMINATION: XR KNEE, RIGHT CLINICAL INFORMATION: Right knee pain. COMPARISON: None available. TECHNIQUE: Four views of the right knee. FINDINGS: [id number] tricompartmental degenerative joint changes are seen most pronounced in the lateral femoral tibial compartment. There is no acute fracture or dislocation. There is a small suprapatellar joint effusion. Mild soft tissue fullness is noted. XR/XR knee RT 4V IMPRESSION: 1. Mild to moderate tricompartmental degenerative joint changes most consistent with osteoarthritis. 2. Small suprapatellar joint effusion. 3. Mild soft tissue fullness. Correlate with physical exam.
== END 2022-11-18 12:11 | disposition home or self-care (01) ==
LOC: HO.XRAY 12:10
PROVIDERS: PCP Family Medicine; Visit Provider Family Medicine
DX: M25.561 Pain in right knee (principal)
CPT/HCPCS: 73564

== ENCOUNTER 2023-01-04 13:47 | Outpatient (AMB) | payer OTHER, SELFPAY ==
--- NOTE | 2023-01-04 13:49 | A.OFFVIS_ITS ---
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 States her knee gives out and locks when walking. States she has weakness and is afraid to walk long distances. Also has intermittent swelling. Stairs are when pain is at its worse. Seen with his PCP who ordered Xrays. Patient was told she has O.A. She has tried braces in the past but has lost her brace. 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 She was seen by her PCP where x-rays were ordered. She states she has pain, weakness and intermittent swelling in her knee which is aggravated with stair use. She also c/o locking as well as feeling like her knee giving out and she is afraid to walk long distances. She has tried knee braces in the past. No other teatment to date. [facility] Medical History Essential hypertension Non-rheumatic aortic stenosis Other and unspecified hyperlipidemia Surgical History History of cholecystectomy Family History Father Heart attack Cardiovascular disease Mother Cardiovascular disease Social History (Updated 01/04/23 @ 13:54 by Tereza Lara [facility]) Household Members: Family Housing: House Do you presently have visiting nurse or other home services: No Alcohol intake: current Patient Tobacco Use Status: Never used Tobacco Advance Directives Date on File: 10/28/21 service: No 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 occupational status: 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 Review of Systems Const All systems reviewed & are unremarkable except as noted in HPI and below Physical Exam Vital Signs: BMI result Body Mass Index 28.2 Const General: cooperative, healthy appearing, comfortable, no acute distress, well developed and alert Orientation/consciousness: patient oriented x3 HEENT Head: Yes normal to inspection, Yes normocephalic and Yes atraumatic Eyes General: appearance normal, both eyes and all related structures Resp Effort & Inspection: normal respiratory effort and able to speak in complete sentences Cardio Rate: regular rate Peripheral pulses: Peripheral pulses 2+ throughout GI Palpation (GI): Soft to palpation Skin Lesions: no lesions Rashes: no rashes Neuro General: patient oriented x3 Extrem Other: Right knee: Skin intact, no erythema or joint effusion. Lateral retropatellar tenderness present. Full ROM with crepitus. Negative Samantha?s. No ligamentous laxity. NVI. Results Reviewed Results Reviewed: xrays of the right knee obtained on 11/18/22 show moderate OA with severe PF oa Assessment & Plan Assessment & Plan (1) Osteoarthritis of right knee: Code(s): M17.11 - Unilateral primary osteoarthritis, right knee Qualifiers: Osteoarthritis type: primary Qualified Code(s): M17.11 - Unilateral primary osteoarthritis, right knee Plan We had a lengthy discussion about the extent of her osteoarthritis and options available which include surgical intervention. She is interested in pursuing Total knee arthroplasty to improve her functional capacity and daily activities. I explained to her the procedure in detail, the hospital stays and details about post op rehab and precautions. He does understand all this and would like to move forward. I will have her meet with Dr Davidson to discuss this further. She is content with this plan. Patient Instructions: Scribed for Osiel Du PA-C, by Oscar Griffiths certified medical technician assistant, on 01/04/2023 at 2:00 PM EST. IOsiel PA-C, have personally reviewed and agree with the information entered by the scribe. Coding Level of Care Code New Pt Level 3 (88529) Diagnoses Primary osteoarthritis of right knee M17.11 Osteoarthritis type: primary
[2023-01-04 13:54] VITALS: BMI 28.2
== END 2023-01-04 15:08 | disposition home or self-care (01) ==
PROVIDERS: PCP Family Medicine; Visit Provider Physician Assistant
DX: M17.11 Unilateral primary osteoarthritis, right knee (principal)
CPT/HCPCS: 99203

== ENCOUNTER → 2023-01-04 13:47 | Outpatient (BNVA) | payer OTHER, SELFPAY | PROVIDERS: PCP Family Medicine; Visit Provider Physician Assistant ==

== ENCOUNTER 2023-01-23 13:26 | Outpatient (AMB) | payer OTHER, SELFPAY ==
--- NOTE | 2023-01-23 13:28 | A.OFFVIS_ITS ---
Intake Vital Signs 01/23/23 13:30 Height 5 ft 7 in Weight 180 lb BMI 28.2 Intake Visit Reasons: ov- discuss Right TKA Intake Note: Tala is a 62 year old female who presents today for a follow up of her right knee OA to discuss TKA. She has tried braces in the past with little relief, but no other previous therapies tried. Allergies gluten [GLUTEN] Allergy (Intermediate, Verified 01/23/23 13:30) GI UPSET HPI ov- discuss Right TKA HPI Details Tala is a 62 year old woman with right knee OA, who presents to discuss surgery. She complains of pain with daily activity, worse with kneeling activities, standing from a seated position, or using stairs. She also complains of weakness, occasional locking, instability, and swelling. She says her knee has been bothering her for years, but pain in her knee for ~1 year now. Her pain is intermittent, but she has periods of excrutiating pain occasionally. She feels limited in her daily activities, and says she is not able to walk for long distances. She says she was recently at the mall and was able to walk for a couple stores before she used an assistive device. She says kneeling activities, such as to clean, are very difficult due to pain. She has tried bracing in the past, with some relief, and has completed a course of PT which she says was not helpful. She reports having a heart condition which also limits her activity and function. She says she needs to have a valve replacement, but this has not yet been scheduled. 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 Review of Systems Const All systems reviewed & are unremarkable except as noted in HPI and below Physical Exam Vital Signs: BMI result Body Mass Index 28.2 Const General: no acute distress, alert and awake Orientation/consciousness: patient oriented x3 HEENT Head: Yes normocephalic and Yes atraumatic Eyes EOM: EOMs intact bilaterally Resp Effort & Inspection: normal respiratory effort and able to speak in complete sentences Cardio Jugular venous distension: no JVD Skin General skin exam: turgor normal Rashes: no rashes Neuro General: patient oriented x3 Extrem Other: Right Knee: Patella lateralization Retropatellar TTP Valgus ER deformity bilaterally Psych Appearance: grossly normal Affect: normal affect Attitude: cooperative Results Reviewed Results Reviewed: I personally reviewed relevant radiographs. 1. Mild to moderate tricompartmental degenerative joint changes most consistent with osteoarthritis with severe PF OA 2. Small suprapatellar joint effusion. 3. Mild soft tissue fullness. Correlate with physical exam. Assessment & Plan Assessment & Plan (1) Osteoarthritis of right knee: Code(s): M17.11 - Unilateral primary osteoarthritis, right knee Qualifiers: Osteoarthritis type: primary Qualified Code(s): M17.11 - Unilateral primary osteoarthritis, right knee Plan: This is a 62 year old woman with moderate-severe right knee OA, with patellar lateralization. She has pain with daily activity, worse with kneeling, standing up, and using stairs. She has intermittent swelling & instability. She feels limited in her ADLs and ambulation, and denies any prior treatment except for bracing. I discussed her diagnosis and treatment options. I think she would benefit from a TKA in the future, however she has aortic stenosis and is in discussion with her hair dresser for a valve replacement. I think the best course of action at this time is to manage her heart condition and a knee brace with daily activity. She should try to remain active as tolerated. Nelly will reach out to her to discuss surgery, I think tentatively this can be scheduled for 07/2023 at the earliest. She was fitted for a lateral bolster brace to wear with activity. (2) Non-rheumatic aortic stenosis: Code(s): I35.0 - Nonrheumatic aortic (valve) stenosis Plan: This limits her level of physical activity. She follows with Cardiology and is in discussion to have a valve replacement done soon. (3) Wernicke encephalopathy: Code(s): E51.2 - Wernicke's encephalopathy Plan Scribed for Ryan Davidson MD by Varghese Ruelas, medical corps officer, on 01/23/23 at 2:15 PM, EST. Coding Level of Care Code Est Pt Level 4 (78828) Diagnoses Primary osteoarthritis of right knee M17.11 Osteoarthritis type: primary Non-rheumatic aortic stenosis I35.0 Wernicke encephalopathy E51.2
[2023-01-23 13:30] VITALS: BMI 28.2
== END 2023-01-23 14:35 | disposition home or self-care (01) ==
PROVIDERS: PCP Family Medicine; Visit Provider Orthopaedic Surgery
DX: M17.11 Unilateral primary osteoarthritis, right knee (principal); I35.0 Nonrheumatic aortic (valve) stenosis; E51.2 Wernicke's encephalopathy
CPT/HCPCS: 99214

== ENCOUNTER → 2023-01-23 13:26 | Outpatient (BNVA) | payer OTHER, SELFPAY | PROVIDERS: PCP Family Medicine; Visit Provider Orthopaedic Surgery | DX: M17.11 Unilateral primary osteoarthritis, right knee (principal); I35.0 Nonrheumatic aortic (valve) stenosis; E51.2 Wernicke's encephalopathy | CPT/HCPCS: 99212 ==

== ENCOUNTER 2023-03-02 12:26 | Outpatient (AMB) | payer OTHER, SELFPAY ==
[2023-03-02 12:36] VITALS: BP 116/82; PULSE 63; BMI 37.6
--- NOTE | 2023-03-02 12:36 | MHC.OFFVIS ---
Intake Vital Signs 03/02/23 12:36 Height 5 ft 7 in Weight 240 lb 4.862 oz BMI 37.6 BP 116/82 Blood Pressure Location Lt brachial Position Sitting Pulse 63 Pulse Source Monitor Intake Visit Reasons: FU/Discuss possible knee surgery Intake Note: follow up Ophthalmic Medical Technician Required: No Accompanied by: Family/Other Allergies gluten [GLUTEN] Allergy (Intermediate, Verified 03/02/23 12:37) GI UPSET Medication List - Last Reconciled 03/02/23 by Bryan Murry MD atorvastatin 40 mg PO DAILY bupropion HCl 300 mg PO DAILY calcium carbonate (Oyster Shell Calcium 500) 500 mg PO DAILY cholecalciferol (vitamin D3) 50 mcg (2 x 25 mcg (1,000 unit)) PO DAILY cyanocobalamin (vitamin B-12) (Vitamin B-12) 1,000 mcg PO DAILY fluticasone propionate 50 mcg/actuation 1 spray intranasal DAILY folic acid 1 mg PO DAILY furosemide (Lasix) 20 mg PO DAILY lorazepam 1 tab PO DAILY PRN magnesium oxide 400 mg PO BIDPC metoprolol succinate ER 50 mg PO DAILY omeprazole 20 mg PO DAILY thiamine HCl (vitamin B1) 100 mg PO DAILY HPI HPI Comments History of Present Illness Details Tala returns for follow-up regarding aortic stenosis. Last year, she was actually referred to cardiac surgery for aortic valve replacement but it seems that she never followed through with. Lot of alcohol issues in the past but she states she has not had any alcohol in the last few months or so. Again last year she was complaining of some shortness of breath with activity but today she states she does not have that. who is here states that she barely does anything and very sedentary in the house. No other new complaints like angina or presyncope. 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 Review of Systems Const Denies weakness ENT Denies dizziness Card Denies chest pain, Denies chest pain with activity, Denies syncope, Denies rapid heart rate, Denies pedal edema, Denies edema, Denies leg edema, Denies lightheadedness, Denies palpitations, Denies dyspnea, Denies dyspnea on exertion and Denies orthopnea Resp Denies cough, Denies dyspnea and Denies dyspnea on exertion GI Denies hematochezia and Denies change in stool character Musc Denies abnormal gait, Denies muscle cramps, Denies muscle weakness, Denies numbness, Denies radiating pain into limb and Denies tingling Neuro Denies abnormal gait, Denies dizziness, Denies syncope, Denies numbness, Denies tingling and Denies weakness Endo Denies palpitations Physical Exam Vital Signs: Last Vital Signs Pulse 63 03/02/23 12:36 BP 116/82 03/02/23 12:36 BMI result Body Mass Index 37.6 Const General: comfortable and no acute distress Orientation/consciousness: patient oriented x3 HEENT Other: Unremarkable Head: Yes normal to inspection Neck Neck: Yes normal visual inspection Chest Chest palpation & inspection: normal inspection of the chest Resp Auscultation: clear to auscultation bilaterally Cardio Palpation: normal PMI Heart sounds: S1 normal heart sound present, S2 abnormal (soft), no gallops, Murmur heart sound present systolic III/ and at the right sternal border and no rubs GI Palpation (GI): Soft to palpation Back/Spine/Pelvis Other: unremarkable Skin General skin exam: no rashes or lesions noted Neuro General: patient oriented x3 Extrem General: Yes normal to inspection Psych Mental Status: mental status grossly normal Office Procedures EKG Details: EKG with sinus rhythm at 63/Min; no significant ST-T changes and otherwise unremarkable[place] [id number], Complete Assessment & Plan Assessment & Plan (1) Non-rheumatic aortic stenosis: Code(s): I35.0 - Nonrheumatic aortic (valve) stenosis Plan: In our echocardiogram from 2021, mean gradient across aortic valve was 35 mm Hg. Peak 64 mm Hg. Calculated valve area 0.8 sq cm. Unclear if bicuspid or trileaflet. Dimensionless index 0.25. LVEF was hyperdynamic at more than 70%. She had another echocardiogram in [facility] this July and that shows LVEF of 65-75% and severe aortic stenosis. Peak gradient was 85 mm Hg and mean gradient was 54 mm Hg. Calculated valve area of 0.9 sq cm. Cardiac catheterization did not show any significant coronary disease. She had reported shortness of breath and some leg swelling last year but today she states she is fine but feels that is because she does not do anything at home. Her gradients are fairly high even from July this year more than likely is even higher now. We will repeat another study as it has been more than 6 months. Will refer back to cardiac surgery. Considering her overall health, she may be more suitable for TAVR as opposed to surgical AVR. To be decided. (2) Mitral annular calcification: Code(s): I05.9 - Rheumatic mitral valve disease, unspecified Plan: Her last echocardiogram from [facility] shows [id number] mitral valve calcification but no significant valvular dysfunction. No specific management. (3) Essential hypertension: Code(s): I10 - Essential (primary) hypertension Plan: Stable. (4) Leg edema: Code(s): R60.0 - Localized edema Plan: Remains on small dose of Lasix. (5) Alcohol abuse: Code(s): F10.10 - Alcohol abuse, uncomplicated Plan: She states she has not had any alcohol in about 6 months time. (6) Preoperative cardiovascular examination: Code(s): Z01.810 - Encounter for preprocedural cardiovascular examination Plan: Patient is asking about going for knee surgery. I advised her that with severe aortic stenosis, would be high risk and to postpone surgery for now. Plan Discussed with as well who came for appointment. Orders: Orders CA echo transthoracic complete Today I35.0 - Nonrheumatic aortic (valve) stenosis Coding Level of Care Code Est Pt Level 4 (24658) Diagnoses Non-rheumatic aortic stenosis I35.0 Mitral annular calcification I05.9 Essential hypertension I10 Leg edema R60.0 Alcohol abuse F10.10 Preoperative cardiovascular examination Z01.810 CPT Codes EKG - CPT: 11835-[id number], Complete ([id number])
== END 2023-03-02 12:58 | disposition home or self-care (01) ==
PROVIDERS: PCP Family Medicine; Visit Provider Internal Medicine
DX: I35.0 Nonrheumatic aortic (valve) stenosis (principal); I05.9 Rheumatic mitral valve disease, unspecified; I10 Essential (primary) hypertension; R60.0 Localized edema; F10.10 Alcohol abuse, uncomplicated; Z01.810 Encounter for preprocedural cardiovascular examination
CPT/HCPCS: 93010; 99214

== ENCOUNTER → 2023-03-02 12:26 | Outpatient (BNVA) | payer OTHER, SELFPAY | PROVIDERS: PCP Family Medicine; Visit Provider Internal Medicine | DX: Z01.810 Encounter for preprocedural cardiovascular examination (principal); I35.0 Nonrheumatic aortic (valve) stenosis; I05.9 Rheumatic mitral valve disease, unspecified; I10 Essential (primary) hypertension; E78.49 Other hyperlipidemia | CPT/HCPCS: 93005; 99212 ==

== ENCOUNTER → 2023-04-05 13:07 | Outpatient (REF) | payer OTHER, SELFPAY | LOC: HO.CARD 13:07 | PROVIDERS: PCP Family Medicine; Visit Provider Internal Medicine | DX: I35.0 Nonrheumatic aortic (valve) stenosis (principal) | CPT/HCPCS: 93306; Q9957 ==

== ENCOUNTER → 2023-04-05 13:09 | Outpatient (BNV) | payer OTHER, SELFPAY | PROVIDERS: PCP Family Medicine; Visit Provider Internal Medicine Cardiovascular Disease | DX: I35.0 Nonrheumatic aortic (valve) stenosis (principal) | CPT/HCPCS: 93306 ==

== ENCOUNTER → 2023-04-25 10:00 | Outpatient (BNV) | payer OTHER, SELFPAY | PROVIDERS: PCP Family Medicine; Visit Provider Radiology Diagnostic Radiology | DX: N63.22 Unspecified lump in the left breast, upper inner quadrant (principal) | CPT/HCPCS: 76642; 77062; 77066 ==

== ENCOUNTER 2023-04-25 10:01 | Outpatient (REF) | payer OTHER, SELFPAY ==
--- NOTE | ~2023-04-25 | US_ITS ---
EXAMINATION: MM DIAGNOSTIC DIGITAL BREAST TOMOSYNTHESIS, BILATERAL US BREAST LIMITED, LEFT MAMMOGRAPHY: CLINICAL INFORMATION: Palpable upper inner quadrant left breast lump. COMPARISON: Mammography: There are no prior mammograms for comparison. TECHNIQUE: Digital breast tomosynthesis is performed in both the craniocaudal and mediolateral oblique views along with computer-aided detection (CAD). Synthesized 2D images are generated from the tomosynthesis. FINDINGS: There are scattered areas of fibroglandular density (ACR BI-RADS breast composition Category b). In the area of the patient's palpable lump, at the 11:00 location 3 cm from the left nipple, there is hyperdense macrolobulated mass with peripheral microcalcifications and poorly circumscribed borders posteriorly. There is no adenopathy in the portion of the left axilla included on this examination. In the right breast, there are no significant masses, abnormal calcifications, or other abnormalities. ULTRASOUND: CLINICAL INFORMATION: Periareolar left breast lump COMPARISON: None TECHNIQUE: Targeted sonographic evaluation was performed using a high frequency linear transducer. Selected archived documentation. FINDINGS: LEFT BREAST: In the 11:00 position of the left breast, 3 cm from the nipple, there is an internally hypervascular, 40 mm x 24 mm x 20 mm heterogeneous, hypoechoic, lobulated breast mass. There is suggestion of poorly defined echogenic halo. There is no left axillary adenopathy by sonography. US/US breast LT limited mamm only IMPRESSION: Highly suspicious, 20 mm palpable mass at the 11:00 position of the left breast warrants ultrasound-guided biopsy. No adenopathy in either axilla. No mammographic signs of malignancy right breast. I have personally spoken with the patient to inform spoken that a biopsy is necessary. All of her questions were answered. Our facility will assist in scheduling her biopsy for the very near future. OVERALL ASSESSMENT: Mammography: BI-RADS 5 - Highly suggestive of malignancy Ultrasound: BI-RADS 5 - Highly suggestive of malignancy RECOMMENDATION: Biopsy recommended Results were provided to the patient at time of visit by the technologist. This patient's information was entered into a reminder system with a target due date for their next mammogram.
== END 2023-04-25 10:02 | disposition home or self-care (01) ==
LOC: HO.MAMMO 10:01
PROVIDERS: PCP Family Medicine; Visit Provider Family Medicine
DX: N63.22 Unspecified lump in the left breast, upper inner quadrant (principal)
CPT/HCPCS: 76642; 77062; 77066

== ENCOUNTER 2023-04-27 08:27 | Outpatient (AMB) | payer OTHER, SELFPAY ==
--- NOTE | 2023-04-27 08:31 | A.OFFVIS_ITS ---
Intake Vital Signs 3 04/27/23 08:42 Height 5 ft 7 in Weight 236 lb BMI 37.0 BP 118/68 Blood Pressure Location Lt brachial Position Sitting Pulse 72 Intake Visit Reasons: US guided Bx Lt breast 11 o'clock mass Intake Note: Patient is seen in office for ultrasound guided biopsy consult, following left breast 11 o'clock mass. Pt c/o: admits to feeling a lump on the left breast since one week before Newman aches, denies any prior breast surgeries or infections, yes to breast feeding without complications. mm & us:04/25/23 Egg Setter Required: No Rail Setter: Rail Setter Present Accompanied by: Self / Same As Patient Allergies gluten [GLUTEN] Allergy (Intermediate, Verified 04/27/23 08:37) GI UPSET HPI HPI Comments 2 History of Present Illness0 Details 62-year-old female patient presenting fo r evaluation of a palpable left breast mass located in the upper inner quadrant. She noted the lump around Newman time while in the shower. She underwent evaluation with mammogram and ultrasound on 04/25/2023. This revealed a highly suspicious 20 mm palpable mass in the 11 o'clock position of the left breast felt to be highly suggestive of malignancy. Ultrasound of the left breast at the 11 o'clock position 3 cm from the nipple reveals a 40 x 24 x 20 mm heterogeneous, hypoechoic, lobulated breast mass with a poorly defined echogenic halo. No left axillary adenopathy is identified by sonography. She is scheduled for an ultrasound-guided core biopsy later today at the [facility]. She denies a previous history of breast problems or breast surgery. She is and breastfed her children. Family history is negative for breast cancer. 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 Reproductive History Menstrual Age of Menarche: 10 Age of menopause: 55 Total pregnancies: 2 Full term: 2 Review of Systems Const All systems reviewed & are unremarkable except as noted in HPI and below Denies chills, Denies fever(s), Denies headache(s), Reports lethargy, Reports malaise, Denies poor appetite and Reports weakness ENT Denies headache(s) Card Denies chest pain, Denies irregular heart rhythm, Denies palpitations and Reports dyspnea Resp Denies cough, Denies excessive phlegm production and Reports dyspnea GI Denies abdominal pain, Denies bloating, Denies change in bowel habits, Denies constipation, Denies heartburn, Denies diarrhea, Denies nausea and Denies vomiting Denies urinary frequency and Denies nipple discharge Musc Denies back pain, Denies muscle weakness and Denies numbness Skin/Breast Denies breast pain, Reports breast mass, Denies changing lesions, Denies nipple discharge and Denies unusual bruising Neuro Denies headache(s), Denies numbness, Denies paresthesias and Reports weakness Psych Denies anxiety and Denies depression Endo Denies palpitations Krystian/Lymph Denies lymphadenopathy Physical Exam Const General: cooperative and no acute distress Nutritional Appearance: well nourished Orientation/consciousness: patient oriented x3 Limitations: no limitations HEENT Head: Yes normocephalic and Yes atraumatic Ears: hearing grossly normal bilaterally Chest Other: Left breast: Palpable mass felt superficial within the breast tissue at the 11 o'clock position, mobile within the breast tissue without fixation to chest wall or skin. No overlying skin changes appreciated. No other palpable mass or enlarged lymph nodes appreciated. Nipple discharge could not be expressed. No nipple skin changes are appreciated. Right breast: No skin change, nipple discharge, palpable mass, or enlarged lymph nodes. Chest/axillae images: 2 1. 4 cm mass upper inner quadrant mobile within the breast tissue, 11:00 o'clock axis. (cT2 cNo) Resp Effort & Inspection: normal respiratory effort, no audible wheezes, no cough and no respiratory distress Cardio Jugular venous distension: no JVD GI Inspection: Yes normal to inspection Skin Other: Warm, dry, no rash Neuro General: patient oriented x3 Extrem General: Yes no clubbing, cyanosis or edema Results Reviewed Results Reviewed: Mammogram left breast: Assessment & Plan Assessment & Plan (1) Left breast mass: Code(s): N63.20 - Unspecified lump in the left breast, unspecified quadrant Qualifiers: Breast mass location: upper inner quadrant Qualified Code(s): N63.22 - Unspecified lump in the left breast, upper inner quadrant (2) Abnormal mammogram of left breast: Code(s): R92.8 - Other abnormal and inconclusive findings on diagnostic imaging of breast Plan 62-year-old female patient presenting with a palpable mass in the left breast 1st noted around Newman time 2022. She denies a previous history of breast problems or breast surgery. Her family history is negative for breast cancer. Workup with mammogram and ultrasound is highly suggestive of malignancy (BI-RADS 5). Examination she has a 4 cm palpable mass in the upper inner quadrant with no fixation to skin or chest wall. Lesion is quite large compared to the size of her breast. She is scheduled for an ultrasound-guided core biopsy later today at the [facility]. I recommended she return in 5-7 days to review the pathology results and discuss treatment options as necessary. She expressed understanding and agrees with the plan. Orders: Orders 2 US breast needle loc LT Today N63.20 - Unspecified lump in the left breast, unspecified quadrant, R92.8 - Other abnormal and inconclusive findings on diagnostic imaging of breast Coding Level of Care Code New Pt Level 4 (20619) Diagnoses Mass of upper inner quadrant of left breast N63.22 Breast mass location: upper inner quadrant Abnormal mammogram of left breast R92.8
[2023-04-27 08:42] VITALS: BP 118/68; PULSE 72; BMI 37.0
== END 2023-04-27 08:55 | disposition home or self-care (01) ==
PROVIDERS: PCP Family Medicine; Visit Provider Surgery
DX: N63.22 Unspecified lump in the left breast, upper inner quadrant (principal); R92.8 Other abnormal and inconclusive findings on diagnostic imaging of breast
CPT/HCPCS: 99204

== ENCOUNTER 2023-04-27 09:01 | Outpatient (REF) | payer OTHER, SELFPAY ==
--- NOTE | ~2023-04-27 | MM_ITS ---
PROCEDURE: US GUIDED BREAST BIOPSY, LEFT CLINICAL INFORMATION: Large irregular anterior left breast hypoechoic mass, 11:00 axis, recommended for ultrasound-guided biopsy. COMPARISON: 04/25/2023 mammography and left breast ultrasound. PROCEDURAL DETAILS: The details of the procedure, as well as the risks, benefits, and alternatives to the procedure were explained to the patient in detail and all of her questions were answered, after which written informed consent was obtained. Site and side were confirmed. Prior to the procedure, sonography revealed a large 4.0 cm kidney-shaped hypoechoic irregular vascular mass with central calcifications at the 11:00 axis left breast. A time-out was performed, the lesion intended for biopsy was targeted, and the skin of the left breast was then marked, prepped and draped in the usual sterile fashion. Using sonographic guidance, sterile technique, and 1% lidocaine without epinephrine for local anesthesia, multiple core biopsies were obtained through the targeted area with a 14G spring loaded Alereonera core biopsy device. There was real-time confirmation of appropriate needle passage. Sampling was documented. At the completion of tissue sampling, a single open coil metallic clip was deposited at the biopsy site. There was no evidence of immediate complication. SPECIMEN: 3 well formed core samples were obtained. DIGITAL POST-PROCEDURE MAMMOGRAPHY: Breast density: The tissue contains scattered areas of fibroglandular density. BI-RADS version 5, category B. There are no new mammographic findings demonstrated. The postprocedure 2-view direct digital mammogram reveals satisfactory and accurate positioning of the biopsy clip. No hematoma present. The patient tolerated the procedure well and, after assuring adequate hemostasis, was discharged in good condition after reviewing postbiopsy breast care instructions. Final pathology results are pending. MM/MM tomosynthesis diagnostic LT IMPRESSION: 1. No immediate complication from ultrasound-guided percutaneous biopsy mass left anterior breast. 2. Ultrasound was used to localize and guide marker clip placement. 3. The 2-view direct digital postprocedure mammogram reveals accurate and satisfactory positioning of the biopsy clip. 4. Final pathology results are pending. A separate report with final recommendations will be issued once these results are made available.
[2023-04-27] MEDS: Lidocaine HCl 1 % 20 ML VIAL 7 ML SUBCUT (11:34)
[2023-04-27] MEDS: Sodium Bicarbonate 8.4% 50 MEQ/50 ML VIAL SUBCUT (11:35)
== END 2023-04-27 09:02 | disposition home or self-care (01) ==
LOC: HO.MAMMO 09:01
PROVIDERS: PCP Family Medicine; Visit Provider Surgery
DX: R92.8 Other abnormal and inconclusive findings on diagnostic imaging of breast (principal); N63.21 Unspecified lump in the left breast, upper outer quadrant
CPT/HCPCS: 19083; 77061; 77065; 88305; 88342; 88360; 99202; A4648; C1894

== ENCOUNTER → 2023-04-27 10:00 | Outpatient (BNV) | payer OTHER, SELFPAY | PROVIDERS: PCP Family Medicine; Visit Provider Radiology Diagnostic Radiology | DX: N63.22 Unspecified lump in the left breast, upper inner quadrant (principal) | CPT/HCPCS: 19083; 77065 ==

== ENCOUNTER 2023-05-05 11:23 | Outpatient (AMB) | payer OTHER, SELFPAY ==
--- NOTE | 2023-05-05 11:38 | MHC.OFFVIS ---
Intake Vital Signs 05/05/23 11:39 Height 5 ft 3 in Weight 233 lb BMI 41.3 BP 136/61 Blood Pressure Location Lt brachial Position Sitting Pulse 68 Intake Visit Reasons: S/p US guided Bx Lt breast 11 o'clock mass Intake Note: Patient is seen in office for ultrasound guided biopsy results of left breast 11 o'clock mass. 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 She noted the lump around Esequiel time while in the shower. She underwent evaluation with mammogram and ultrasound on 04/25/2023. This revealed a highly suspicious 20 mm palpable mass in the 11 o'clock position of the left breast felt to be highly suggestive of malignancy. Ultrasound of the left breast at the 11 o'clock position 3 cm from the nipple reveals a 40 x 24 x 20 mm heterogeneous, hypoechoic, lobulated breast mass with a poorly defined echogenic halo. No left axillary adenopathy is identified by sonography. She is scheduled for an ultrasound-guided core biopsy later today at the [facility]. She denies a previous history of breast problems or breast surgery. She is and breastfed her children. Family history is negative for breast cancer. She underwent an ultrasound-guided core biopsy of the lesion on 04/27/2023. Pathology revealed invasive ductal carcinoma, grade 3, ER positive, TN low positive, HER2 Beni negative, proliferation index high (25%) ([id number]). I reviewed the pathology with the patient and her and provided her with a copy of the report. Of note, the patient was found to have critical aortic stenosis and is scheduled for a cardiac valve replacement at [facility] in approximately 2 weeks. Per her cardiac surgeon, she is too unstable at this point to undergo breast surgery and will need at least 2 months recovery before considering the breast surgery. She is scheduled to see Dr. Root on Monday (05/08/2023) to discuss possible neoadjuvant treatment. 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 Reproductive History Menstrual Age of Menarche: 10 Physical Exam Vital Signs: Last Vital Signs Pulse 68 05/05/23 11:39 BP 136/61 05/05/23 11:39 BMI result Body Mass Index 41.3 Const General: cooperative and no acute distress Nutritional Appearance: well nourished Orientation/consciousness: patient oriented x3 Limitations: no limitations HEENT Head: Yes normocephalic and Yes atraumatic Ears: hearing grossly normal bilaterally Chest Other: Left breast: Palpable mass felt superficial within the breast tissue at the 11 o'clock position, mobile within the breast tissue without fixation to chest wall or skin. No overlying skin changes appreciated. No other palpable mass or enlarged lymph nodes appreciated. Nipple discharge could not be expressed. No nipple skin changes are appreciated. Right breast: No skin change, nipple discharge, palpable mass, or enlarged lymph nodes. Resp Effort & Inspection: normal respiratory effort, no audible wheezes, no cough and no respiratory distress Cardio Jugular venous distension: no JVD GI Inspection: Yes normal to inspection Skin Other: Warm, dry, no rash Neuro General: patient oriented x3 Extrem General: Yes no clubbing, cyanosis or edema Assessment & Plan Assessment & Plan (1) Invasive ductal carcinoma of breast: Code(s): C50.919 - Malignant neoplasm of unspecified site of unspecified female breast Qualifiers: Laterality: left Qualified Code(s): C50.912 - Malignant neoplasm of unspecified site of left female breast Plan 62-year-old female patient presenting with a palpable breast mass in the left breast at the upper inner quadrant returning today following an ultrasound-guided core biopsy. Pathology revealed an invasive ductal carcinoma, grade 3, ER positive, TN low positive, HER2 Beni negative. In addition the patient was diagnosed with critical aortic stenosis and is awaiting an aortic valve replacement by Dr. Heladio Doty at [facility]. The patient was found to have a relatively large tumor in a small breast which would make lumpectomy very difficult. Patient may benefit from neoadjuvant treatment which may make the patient a candidate for lumpectomy with sentinel node biopsy. In addition the patient is currently not a candidate for surgery due to her aortic stenosis. She will be undergoing aortic valve replacement in the next 2 weeks and will require at least 2 months recovery following this procedure. I have therefore asked her to be evaluated by Dr. Root in Medical Oncology (scheduled for 05/08/2023). The patient and her expressed understanding and agrees with the plan. The patient is also a candidate for genetic testing which will be discussed further at a future date. Orders: Referrals Hematology & Oncology Referral C50.919 - Malignant neoplasm of unspecified site of unspecified female breast Coding Level of Care Code Est Pt Level 3 (65746) Diagnoses Infiltrating ductal carcinoma of left breast C50.912 Laterality: left
[2023-05-05 11:39] VITALS: BP 136/61; PULSE 68; BMI 41.3
== END 2023-05-05 12:03 | disposition home or self-care (01) ==
PROVIDERS: PCP Family Medicine; Visit Provider Surgery
DX: C50.912 Malignant neoplasm of unspecified site of left female breast (principal)
CPT/HCPCS: 99213

== ENCOUNTER → 2023-05-05 11:23 | Outpatient (BNVA) | payer OTHER, SELFPAY | PROVIDERS: PCP Family Medicine; Visit Provider Surgery | DX: C50.212 Malignant neoplasm of upper-inner quadrant of left female breast (principal) | CPT/HCPCS: 99212 ==

== ENCOUNTER → 2023-05-09 23:59 | Outpatient (BNV) | payer MEDICARE, SELFPAY | PROVIDERS: PCP Family Medicine; Visit Provider Internal Medicine Cardiovascular Disease | DX: I35.0 Nonrheumatic aortic (valve) stenosis (principal) | CPT/HCPCS: 93454; 99152 ==

== ENCOUNTER 2023-05-10 12:55 | Outpatient (REF) | payer MEDICARE, SELFPAY ==
--- NOTE | ~2023-05-10 | MR_ITS ---
EXAMINATION: MR BREAST WITHOUT AND WITH CONTRAST, BILATERAL CLINICAL INFORMATION: History of locally advanced left breast cancer. Evaluate extent of disease. COMPARISON: 04/27/2023. No previous breast MRI. TECHNIQUE: Imaging was performed with a dedicated breast coil. Prior to the administration of contrast, bilateral axial T1 and bilateral axial T2 weighted sequences were obtained. After the uneventful administration of?10 mL of Gadavist, dynamic contrast-enhanced VIBRANT series through the breasts in the axial plane were performed. Subtracted images were performed and reviewed. A delayed sagittal sequence through both breasts was acquired. Additionally, CAD post-processing, including maximum intensity projections, 3-D reconstructions and kinetic analysis, were performed an independent workstation and reviewed by the interpreting radiologist is a portion of this exam. FINDINGS: The patient's fibroglandular tissue demonstrates minimal background enhancement. LEFT BREAST: In the 10:00 position of the left breast, 2.7 cm from the nipple, there is an irregular enhancing mass correlating to the recently diagnosed malignancy measuring 4.0 cm (transverse) by 2.8 (AP) by 3.2 (CC) CM. The mass abuts the anterior skin margin. There is no definite abnormal enhancement of the skin. Review of the prebiopsy ultrasound images demonstrates the anterior margin of the mass to be close to the basement membrane in several locations to the adjacent anterior skin. There is prominent vascular recruitment to the mass. The kinetics are mixture of type II and type III enhancement. The distance to the pectoralis fascia is 4.9 cm. RIGHT BREAST: A bilobed enhancing mass in the posterior right breast, 3:00 position, demonstrates increased signal intensity on the T2-weighted images and is located adjacent to a branching vessel. The imaging findings are consistent with an intramammary lymph node (image 83, series 100). No suspicious masslike or non-masslike enhancement. No abnormal skin thickening or nipple retraction. No abnormal architectural distortion. Review of the T2 weighted images demonstrates no fibrocystic changes or dilated ducts. Review of kinetic images reveals no additional findings. There is no suspicious internal mammary chain or axillary adenopathy. Limited views of the chest and abdomen are unremarkable. MR/MR breast BI wo/w con IMPRESSION: Known left breast malignancy, upper inner quadrant with close anterior skin margin. No MRI evidence of disease extending to the nipple or elsewhere within the left breast. No MRI evidence of contralateral right breast malignancy. ASSESSMENT: LEFT BREAST: B-RADS 6 - Known Malignancy - Appropriate action should be taken. RIGHT BREAST: BI-RADS 1-Negative RECOMMENDATIONS: Appropriate action.
[2023-05-10] MEDS: gadobutroL 10 ML VIAL IVPUSH (14:06)
== END 2023-05-10 12:56 | disposition home or self-care (01) ==
LOC: HO.MRI 12:55
PROVIDERS: PCP Family Medicine; Visit Provider Internal Medicine Medical Oncology
DX: Z85.3 Personal history of malignant neoplasm of breast (principal)
CPT/HCPCS: 77049; A9585

== ENCOUNTER 2023-05-15 10:30 | Outpatient (AMB) | payer MEDICARE, SELFPAY ==
[2023-05-15 10:33] VITALS: BP 106/70; PULSE 71; BMI 38.1
--- NOTE | 2023-05-15 10:33 | A.OFFVIS_ITS ---
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: No Accompanied by: Spouse Allergies gluten [GLUTEN] Allergy (Intermediate, Verified 05/15/23 10:36) GI UPSET Medication List - Last Reconciled 05/15/23 by Bryan Murry MD atorvastatin 40 mg PO DAILY cholecalciferol (vitamin D3) (Vitamin D3) 50 mcg PO DAILY fluticasone propionate 50 mcg/actuation 1 spray intranasal DAILY folic acid 1 mg PO DAILY furosemide 20 mg PO DAILY levothyroxine 75 mcg PO QAM magnesium oxide 400 mg PO BIDPC metoprolol succinate ER 50 mg PO DAILY omeprazole 20 mg PO DAILY tamsulosin 0.4 mg PO BEDTIME HPI HPI Comments History of Present Illness Details Tala returns for follow-up regarding aortic stenosis. She was supposed to get surgical aortic valve replacement this week but unfortunately got diagnosed breast cancer very recently. Because of this, the open heart surgery has been canceled. Now she is met the TAVR team and scheduling is in progress. She does get short of breath with activity but otherwise no other symptoms. Issues with alcohol excess in the past but nothing recently. Otherwise, getting along okay. 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 Reproductive History Menstrual Age of Menarche: 10 Review of Systems Const Denies weakness ENT Denies dizziness Card Denies chest pain, Denies chest pain with activity, Denies syncope, Denies rapid heart rate, Denies pedal edema, Denies edema, Denies leg edema, Denies lightheadedness, Denies palpitations, Denies dyspnea, Denies dyspnea on exertion and Denies orthopnea Resp Denies cough, Denies dyspnea and Denies dyspnea on exertion GI Denies hematochezia and Denies change in stool character Musc Denies abnormal gait, Denies muscle cramps, Denies muscle weakness, Denies numbness, Denies radiating pain into limb and Denies tingling Neuro Denies abnormal gait, Denies dizziness, Denies syncope, Denies numbness, Denies tingling and Denies weakness Endo Denies palpitations Physical Exam Vital Signs: Last Vital Signs Pulse 71 05/15/23 10:33 BP 106/70 05/15/23 10:33 BMI result Body Mass Index 38.1 Const General: comfortable and no acute distress Orientation/consciousness: patient oriented x3 HEENT Other: Unremarkable Head: Yes normal to inspection Neck Neck: Yes normal visual inspection Chest Chest palpation & inspection: normal inspection of the chest Resp Auscultation: clear to auscultation bilaterally Cardio Palpation: normal PMI Heart sounds: S1 normal heart sound present, S2 abnormal (soft), no gallops, Murmur heart sound present systolic III/ and at the right sternal border and no rubs GI Palpation (GI): Soft to palpation Back/Spine/Pelvis Other: unremarkable Skin General skin exam: no rashes or lesions noted Neuro General: patient oriented x3 Extrem General: Yes normal to inspection Psych Mental Status: mental status grossly normal Assessment & Plan Assessment & Plan (1) Non-rheumatic aortic stenosis: Code(s): I35.0 - Nonrheumatic aortic (valve) stenosis Plan: In the most recent echocardiogram, peak gradient across aortic valve was 73 mm Hg with a mean of 46 mm Hg. Calculated valve area of 0.6 sq cm. Hyperdynamic LVEF. Cardiac catheterization shows normal coronary arteries. TAVR scheduling is in progress. I already discussed this with Dr. Jeffries, Dr. Doty as well as the TAVR coordinator. (2) Essential hypertension: Code(s): I10 - Essential (primary) hypertension Plan: Stable. (3) Leg edema: Code(s): R60.0 - Localized edema Plan: Remains on small dose of Lasix. No significant edema currently. (4) Alcohol abuse: Code(s): F10.10 - Alcohol abuse, uncomplicated Plan: Per patient, has not used recently. (5) Invasive ductal carcinoma of breast: Code(s): C50.919 - Malignant neoplasm of unspecified site of unspecified female breast Qualifiers: Laterality: left Qualified Code(s): C50.912 - Malignant neoplasm of unspecified site of left female breast Plan: After TAVR, likely to start chemotherapy and be scheduled for surgery. Prefer that we get the TAVR done 1st before breast cancer management, as the chemotherapy might be cardiotoxic. Plan Discussed with as well who came for appointment. Coding Level of Care Code Est Pt Level 4 (79929) Diagnoses Non-rheumatic aortic stenosis I35.0 Essential hypertension I10 Leg edema R60.0 Alcohol abuse F10.10 Infiltrating ductal carcinoma of left breast C50.912 Laterality: left
== END 2023-05-15 11:06 | disposition home or self-care (01) ==
PROVIDERS: PCP Family Medicine; Visit Provider Internal Medicine
DX: I35.0 Nonrheumatic aortic (valve) stenosis (principal); I10 Essential (primary) hypertension; R60.0 Localized edema; F10.10 Alcohol abuse, uncomplicated; C50.912 Malignant neoplasm of unspecified site of left female breast
CPT/HCPCS: 99214

== ENCOUNTER → 2023-05-15 10:30 | Outpatient (BNVA) | payer SELFPAY | PROVIDERS: PCP Family Medicine; Visit Provider Internal Medicine | DX: I35.0 Nonrheumatic aortic (valve) stenosis (principal); I10 Essential (primary) hypertension; R60.0 Localized edema; F10.10 Alcohol abuse, uncomplicated; C50.912 Malignant neoplasm of unspecified site of left female breast | CPT/HCPCS: 99212 ==

== ENCOUNTER → 2023-05-16 15:40 | Outpatient (BNV) | payer MEDICARE, SELFPAY | PROVIDERS: PCP Family Medicine; Visit Provider Internal Medicine Medical Oncology | DX: C50.212 Malignant neoplasm of upper-inner quadrant of left female breast (principal) | CPT/HCPCS: 99204; 99213 ==

== ENCOUNTER → 2023-07-04 13:57 | Outpatient (REF) | payer MEDICARE, SELFPAY ==
--- NOTE | 2023-07-04 13:59 | CA_ITS ---
Transthoracic Echocardiogram Patient (Last, First, Middle): Tala Farley, Gender: Female Date of : 1960 Age: 63 Procedure Date: 07/04/2023 Procedure Type: Transthoracic Echocardiogram Location: OP Height: 167.64 cm Weight: 81.65 kg BSA: 1.91 m2 Heart Rate: bpm BP: 110 / 58 mmHg Apparel Machinery Instructor: TO Referring MD: Bryan Murry MD Mexican Food Maker: Jay Dejesus MD Symptoms: Z95.2 - Presence of prosthetic heart valve Study Quality: Technically Difficult/Contrast ECG Rhythm: Sinus Conclusions: - 1. Technically limited study despite use of contrast agent 2. Normal LV ejection fraction 60 65% with impaired relaxation filling pattern 3. Normally function bioprosthetic aortic valve in place with mean gradient of 12 mmHg Findings Procedure Information Contrast agent, definity, is being given per protocol without apparent complications. Left Ventricle Normal left ventricular size and systolic function. The visually estimated ejection fraction is between 60-65%. Regional wall motion abnormalities can not be excluded due to suboptimal endocardial definition. There is paradoxical septal motion consistent with a right ventricular pacemaker. Spectral Doppler is indicative of an impaired relaxation filling pattern. Right Ventricle Normal right ventricular cavity size. There is a pacemaker wire seen in the right ventricle. Atria The left atrium was not well visualized. Interatrial shunt cannot be excluded. The right atrium was not well visualized. Aortic Valve A bioprosthetic aortic valve is present. The prosthetic aortic valve appears to be functioning normally. The mean gradient is 12 mmHg. There is no aortic valve regurgitation. Mitral Valve There is mild anterior and posterior mitral leaflet thickening. There is mild mitral annular calcification. There is trace mitral valve regurgitation. There is no mitral valve stenosis. Pulmonic Valve The pulmonic valve was not well visualized. Tricuspid Valve The tricuspid valve was not well visualized. Tricuspid regurgitation envelope is inadequate for calculation of right ventricular systolic pressure. Normal right atrial pressure. Great Vessels The aorta was not well visualized. The pulmonary artery was not well visualized. Venous The inferior vena cava is normal in size. Pericardium/Pleural The pericardium was not well visualized. Prior Study Comparison Changes noted compared to prior study dated: 04/05/2023. normally function bioprosthetic aortic valve with mean gradient of 12 mm Hg is present in place of severe [place] aortic stenosis. LV diastolic function shows impaired relaxation filling pattern Measurements 2D Linear Measurements LVOT Diam: 2.10 3.0+(-)1.3 cm 2D Systolic Function EF 4C: 60.90 >55% Mitral Valve MV VTI: 0.45 MV Pk Bulmaro: 1.32 MV Mn Bulmaro: 0.80 MV Pk Grad: 7.00 MV Mn Grad: 3.00 MV Pk E: 1.14 MV PK A: 1.00 MV Decel Time: 193.00 E/A: 1.10 E'Lateral: 8.16 E'Medial: 5.66 E/E' Med: 20.10 E/E' Lat: 14.00 PHT: 57.00 MVA PHT: 3.86 MVA Continuity: 1.98 Decel [place]: 5.87 Aortic Valve AoV Pk Bulmaro: 2.31 AoV Mn Bulmaro: 1.62 AoV VTI: 0.54 AoV Pk Grad: 21.00 Aov Mn Grad: 12.00 ANGEL Cont.VTI: 1.64 LVOT LVOT Pk Bulmaro: 1.09 LVOT Mn Bulmaro: 0.77 LVOT VTI: 0.26 LVOT Pk Grad: 5.00 LVOT Mn Grad: 3.00 LVOT Diam: 2.10 LVOT Area: 3.46 Diastolic Function MV Pk E: 1.14 MV Pk A: 1.00 E/A: 1.10 E'Medial: 5.66 E/E' Med: 20.10 E' Laterial: 8.16 E/E' Lat: 14.00 Right Ventricle TAPSE (mm): 21.40 TVS' Bulmaro: 11.90 Tricuspid Valve RA Press: 3.00 Great Vessels Aorta Ao Asc: 3.30 2.1-3.4 cm Ao Arch: 3.20 Updated in Other Vendor System with Status of Final Jay Dejesus MD electronically signed on 07/05/2023 3:40:16 PM with status of Final
== END ==
LOC: HO.CARD 13:57
PROVIDERS: PCP Family Medicine; Visit Provider Internal Medicine
DX: Z95.2 Presence of prosthetic heart valve (principal)
CPT/HCPCS: 93306; Q9957

== ENCOUNTER → 2023-07-04 13:59 | Outpatient (BNV) | payer MEDICARE, SELFPAY | PROVIDERS: PCP Family Medicine; Visit Provider Internal Medicine Cardiovascular Disease | DX: I34.81 Nonrheumatic mitral (valve) annulus calcification (principal); Z95.3 Presence of xenogenic heart valve | CPT/HCPCS: 93306 ==

== ENCOUNTER 2023-07-20 13:29 | Outpatient (AMB) | payer MEDICARE, SELFPAY ==
[2023-07-20 13:32] VITALS: BP 120/60; PULSE 55; BMI 38.2
--- NOTE | 2023-07-20 13:32 | MHC.OFFVIS ---
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 To recall, she had severe aortic stenosis and was supposed to go for surgical aortic valve replacement. However, she also got diagnosed with breast cancer and hence this was switched to TAVR. Post TAVR, she went to complete heart block and underwent permanent pacemaker implantation. Overall, she states that she is actually doing okay. Some tiredness and fatigue but apart from that no overt symptoms. Has history of alcohol excess in the past but nothing recently. [facility] Medical History (Updated 07/20/23 @ 13:56 by Bryan Murry MD) Other and unspecified hyperlipidemia Essential hypertension Non-rheumatic aortic stenosis Surgical History (Updated 07/20/23 @ 13:54 by Bryan Murry MD) Aortic valve replaced History of cholecystectomy Family History Father Heart attack Cardiovascular disease Mother Cardiovascular disease Social History Household Members: Family Housing: House Do you presently have visiting nurse or other home services: No Alcohol intake: current Patient Tobacco Use Status: Never used Tobacco Advance Directives Date on File: 10/28/21 service: No Current occupational status: 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 Reproductive History Menstrual Age of Menarche: 10 Review of Systems Const Denies chills, Denies fatigue, Denies fever(s), Denies frequent falls, Denies weakness, Denies weight gain and Denies weight loss ENT Denies dizziness Card Denies chest pain, Denies leg edema, Denies lightheadedness, Denies palpitations, Denies dyspnea and Denies dyspnea on exertion Resp Denies cough, Denies dyspnea and Denies dyspnea on exertion GI Denies hematochezia Musc Denies abnormal gait, Denies muscle weakness, Denies numbness, Denies radiating pain into limb and Denies tingling Neuro Denies abnormal gait, Denies dizziness, Denies frequent falls, Denies numbness, Denies tingling and Denies weakness Endo Denies fatigue and Denies palpitations Physical Exam Vital Signs: Last Vital Signs Pulse 55 07/20/23 13:32 BP 120/60 07/20/23 13:32 BMI result Body Mass Index 38.2 Const General: comfortable and no acute distress Orientation/consciousness: patient oriented x3 HEENT Other: Unremarkable Head: Yes normal to inspection Neck Neck: Yes normal visual inspection Chest Chest palpation & inspection: normal inspection of the chest Resp Auscultation: clear to auscultation bilaterally Cardio Palpation: normal PMI Heart sounds: S1 normal heart sound present, S2 normal heart sound present, no gallops, Murmur heart sound present systolic I/ and at the right sternal border and no rubs GI Palpation (GI): Soft to palpation Back/Spine/Pelvis Other: unremarkable Skin General skin exam: no rashes or lesions noted Neuro General: patient oriented x3 Extrem General: Yes normal to inspection Psych Mental Status: mental status grossly normal Assessment & Plan Assessment & Plan (1) Status post transcatheter aortic valve replacement: Code(s): Z95.2 - Presence of prosthetic heart valve Category: Surgical Plan: In the most recent echocardiogram, normally functioning bioprosthetic aortic valve. Cardiac catheterization shows normal coronary arteries. Continue aspirin. Infective endocarditis prophylaxis per protocol. (2) Encounter for interrogation of cardiac pacemaker: Code(s): Z45.018 - Encounter for adjustment and management of other part of cardiac pacemaker Category: Medical Plan: Currently followed up at [facility] [place]. We will switch the remote monitoring to us and interrogate with next visit. Patient would like to coordinate all her cardiac care at [place]. (3) Essential hypertension: Code(s): I10 - Essential (primary) hypertension Category: Medical Plan: Blood pressure seems stable. She is on some beta-blockers but complaints of tiredness and fatigue. Advised her to stop it for now. If necessary, we can probably use a different agent for blood pressure. (4) Leg edema: Code(s): R60.0 - Localized edema Category: Medical Plan: Remains on small dose of Lasix. Again advised to stop it and see how she does. (5) Alcohol abuse: Code(s): F10.10 - Alcohol abuse, uncomplicated Category: Social Hx Plan: Per patient, has not used recently. (6) Invasive ductal carcinoma of breast: Code(s): C50.919 - Malignant neoplasm of unspecified site of unspecified female breast Category: Medical Qualifiers: Laterality: left Qualified Code(s): C50.912 - Malignant neoplasm of unspecified site of left female breast Plan: She has switched her care to [facility] [place] Oncology.
== END 2023-07-20 13:54 | disposition home or self-care (01) ==
PROVIDERS: PCP Family Medicine; Visit Provider Internal Medicine
DX: Z95.2 Presence of prosthetic heart valve (principal); Z45.018 Encounter for adjustment and management of other part of cardiac pacemaker; I10 Essential (primary) hypertension; R60.0 Localized edema; F10.10 Alcohol abuse, uncomplicated; C50.912 Malignant neoplasm of unspecified site of left female breast
CPT/HCPCS: 99214

== ENCOUNTER → 2023-07-20 13:29 | Outpatient (BNVA) | payer MEDICARE, SELFPAY | PROVIDERS: PCP Family Medicine; Visit Provider Internal Medicine | DX: I10 Essential (primary) hypertension (principal); I35.0 Nonrheumatic aortic (valve) stenosis; R60.0 Localized edema; C50.912 Malignant neoplasm of unspecified site of left female breast; F10.10 Alcohol abuse, uncomplicated; Z95.2 Presence of prosthetic heart valve | CPT/HCPCS: 99212 ==

== ENCOUNTER → 2023-08-16 23:59 | Outpatient (BNV) | payer MEDICARE, SELFPAY ==
--- NOTE | 2023-08-22 13:45 | A.OFFVIS_ITS ---
Intake Visit Reasons: Remote device check- [employer]tr[employer] Allergies gluten [GLUTEN] Allergy (Intermediate, Verified 05/16/23 14:12) GI UPSET PFSH Medical History (Updated 08/22/23 @ 13:46 by Bryan Murry MD) Other and unspecified hyperlipidemia Essential hypertension Non-rheumatic aortic stenosis Surgical History (Updated 07/20/23 @ 13:54 by Bryan Murry MD) Aortic valve replaced History of cholecystectomy Family History Father Heart attack Cardiovascular disease Mother Cardiovascular disease Social History Household Members: Family Housing: House Do you presently have visiting nurse or other home services: No Alcohol intake: current Patient Tobacco Use Status: Never used Tobacco Advance Directives Date on File: 10/28/21 service: No Current occupational status: 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 Overall normal device function. [id number] Cardiac Device Interrogation, pacemaker Procedure code (CPT) selection complete Assessment & Plan Assessment & Plan (1) Encounter for interrogation of cardiac pacemaker: Code(s): Z45.018 - Encounter for adjustment and management of other part of cardiac pacemaker Category: Medical (2) Heart block: Code(s): I45.9 - Conduction disorder, unspecified Category: Medical Plan x Coding Level of Care Code Procedure Only Diagnoses Encounter for interrogation of cardiac pacemaker Z45.018 Heart block I45.9 CPT Codes Cardiac Device Check - Cardiac Device 12: [id number] Cardiac Device Interrogation, pacemaker ([id number])
== END ==
PROVIDERS: PCP Family Medicine; Visit Provider Internal Medicine
DX: I45.9 Conduction disorder, unspecified (principal); Z45.018 Encounter for adjustment and management of other part of cardiac pacemaker
CPT/HCPCS: 93294

== ENCOUNTER 2023-10-09 14:31 | Outpatient (AMB) | payer MEDICARE, SELFPAY ==
--- NOTE | 2023-10-09 14:44 | MHC.OFFVIS ---
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 To recall, she had severe aortic stenosis and was supposed to go for surgical aortic valve replacement. However, she also got diagnosed with breast cancer and hence this was switched to TAVR. Post TAVR, she went to complete heart block and underwent permanent pacemaker implantation. Since last seen, she is generally feeling fine. No clear-cut cardiac complaints. [facility] Medical History (Updated 08/22/23 @ 13:46 by Bryan Murry MD) Other and unspecified hyperlipidemia Essential hypertension Non-rheumatic aortic stenosis Surgical History Aortic valve replaced History of cholecystectomy Family History Father Heart attack Cardiovascular disease Mother Cardiovascular disease Social History Household Members: Family Housing: House Do you presently have visiting nurse or other home services: No Alcohol intake: current Patient Tobacco Use Status: Never used Tobacco Advance Directives Date on File: 10/28/21 service: No Current occupational status: 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 Reproductive History Menstrual Age of Menarche: 10 Review of Systems Const Denies chills, Denies fatigue, Denies fever(s), Denies weight gain and Denies weight loss Eyes Reports no additional complaints ENT Reports no additional complaints Card Denies chest pain, Denies leg edema, Denies lightheadedness, Denies palpitations, Denies dyspnea on exertion and Denies orthopnea Resp Denies cough and Denies dyspnea on exertion GI Denies hematochezia and Denies change in stool character Musc Denies muscle weakness and Denies radiating pain into limb Endo Denies fatigue and Denies palpitations Physical Exam Vital Signs: Last Vital Signs Pulse 73 10/09/23 14:45 BP 108/68 10/09/23 14:45 Const General: comfortable and no acute distress Orientation/consciousness: patient oriented x3 HEENT Other: Unremarkable Head: Yes normal to inspection Neck Neck: Yes normal visual inspection Chest Chest palpation & inspection: normal inspection of the chest Resp Auscultation: clear to auscultation bilaterally Cardio Palpation: normal PMI Heart sounds: S1 normal heart sound present, S2 normal heart sound present, no gallops, Murmur heart sound present systolic I/ and at the right sternal border and no rubs GI Palpation (GI): Soft to palpation Back/Spine/Pelvis Other: unremarkable Skin General skin exam: no rashes or lesions noted Neuro General: patient oriented x3 Extrem General: Yes normal to inspection Psych Mental Status: mental status grossly normal Office Procedures Cardiac Device Check Cardiac Device Check Details: Pacemaker interrogated today. Dual-chamber device, programmed DDD. Battery status 11.6 years. Normal lead parameters. Atrial pacing 27%. Ventricular pacing 96%. No significant arrhythmias. Overall, normal device function. [id number] Cardiac Device Check, pacemaker dual lead Procedure code (CPT) selection complete Assessment & Plan Assessment & Plan (1) Status post transcatheter aortic valve replacement: Code(s): Z95.2 - Presence of prosthetic heart valve Category: Surgical Plan: In the most recent echocardiogram, normally functioning bioprosthetic aortic valve. Cardiac catheterization shows normal coronary arteries. Continue aspirin. Infective endocarditis prophylaxis per protocol. (2) Encounter for interrogation of cardiac pacemaker: Code(s): Z45.018 - Encounter for adjustment and management of other part of cardiac pacemaker Category: Medical Plan: Normally functioning. (3) Essential hypertension: Code(s): I10 - Essential (primary) hypertension Category: Medical Plan: Stable. No changes. (4) Leg edema: Code(s): R60.0 - Localized edema Category: Medical Plan: Was on a small dose of Lasix. Not taking it anymore. (5) Alcohol abuse: Code(s): F10.10 - Alcohol abuse, uncomplicated Category: Social Hx Plan: Per patient, has not used recently. (6) Invasive ductal carcinoma of breast: Code(s): C50.919 - Malignant neoplasm of unspecified site of unspecified female breast Category: Medical Qualifiers: Laterality: left Qualified Code(s): C50.912 - Malignant neoplasm of unspecified site of left female breast Plan: Followed up at [facility]. Patient states she will need surgery/radiation. Coding Level of Care Code Est Pt Level 4 (37806) Diagnoses Status post transcatheter aortic valve replacement Z95.2 Encounter for interrogation of cardiac pacemaker Z45.018 Essential hypertension I10 Leg edema R60.0 Alcohol abuse F10.10 Infiltrating ductal carcinoma of left breast C50.912 Laterality: left CPT Codes Cardiac Device Check - Cardiac Device 2: [id number] Cardiac Device Check, pacemaker dual lead ([id number])
[2023-10-09 14:45] VITALS: BP 108/68; PULSE 73
== END 2023-10-09 15:11 | disposition home or self-care (01) ==
PROVIDERS: PCP Family Medicine; Visit Provider Internal Medicine
DX: I10 Essential (primary) hypertension (principal); C50.912 Malignant neoplasm of unspecified site of left female breast; Z95.0 Presence of cardiac pacemaker; Z95.3 Presence of xenogenic heart valve; R60.0 Localized edema; F10.10 Alcohol abuse, uncomplicated
CPT/HCPCS: 93280; 99214

== ENCOUNTER → 2023-10-09 14:31 | Outpatient (BNVA) | payer MEDICARE, SELFPAY | PROVIDERS: PCP Family Medicine; Visit Provider Internal Medicine | DX: I10 Essential (primary) hypertension (principal); R60.0 Localized edema; F10.10 Alcohol abuse, uncomplicated; C50.912 Malignant neoplasm of unspecified site of left female breast; Z79.82 Long term (current) use of aspirin; Z45.018 Encounter for adjustment and management of other part of cardiac pacemaker; Z95.2 Presence of prosthetic heart valve | CPT/HCPCS: 93280; 99212 ==

== ENCOUNTER → 2023-10-22 23:59 | Outpatient (BNV) | payer MEDICARE, SELFPAY ==
--- NOTE | 2023-10-28 13:52 | A.OFFVIS_ITS ---
Intake Visit Reasons: Remote device check- [employer] Allergies gluten [GLUTEN] Allergy (Intermediate, Verified 05/16/23 14:12) GI UPSET PFSH Medical History (Updated 08/22/23 @ 13:46 by Bryan Murry MD) Other and unspecified hyperlipidemia Essential hypertension Non-rheumatic aortic stenosis Surgical History Aortic valve replaced History of cholecystectomy Family History Father Heart attack Cardiovascular disease Mother Cardiovascular disease Social History Household Members: Family Housing: House Do you presently have visiting nurse or other home services: No Alcohol intake: current Patient Tobacco Use Status: Never used Tobacco Advance Directives Date on File: 10/28/21 service: No Current occupational status: 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 Overall normal device function. [id number] Cardiac Device Interrogation, pacemaker Procedure code (CPT) selection complete Assessment & Plan Assessment & Plan (1) Heart block: Code(s): I45.9 - Conduction disorder, unspecified Category: Medical Plan x Coding Level of Care Code Procedure Only Diagnoses Heart block I45.9 CPT Codes Cardiac Device Check - Cardiac Device 12: [id number] Cardiac Device Interrogation, pacemaker ([id number])
== END ==
PROVIDERS: PCP Family Medicine; Visit Provider Internal Medicine
DX: I45.9 Conduction disorder, unspecified (principal); Z95.0 Presence of cardiac pacemaker
CPT/HCPCS: 93294

== ENCOUNTER → 2023-11-14 23:59 | Outpatient (BNV) | payer MEDICARE, SELFPAY ==
--- NOTE | 2023-11-19 18:52 | MHC.OFFVIS ---
Intake Visit Reasons: Remote device check= Medtr[employer] Allergies gluten [GLUTEN] Allergy (Intermediate, Verified 05/16/23 14:12) GI UPSET PFSH Medical History (Updated 08/22/23 @ 13:46 by Bryan Murry MD) Other and unspecified hyperlipidemia Essential hypertension Non-rheumatic aortic stenosis Surgical History Aortic valve replaced History of cholecystectomy Family History Father Heart attack Cardiovascular disease Mother Cardiovascular disease Social History Household Members: Family Housing: House Do you presently have visiting nurse or other home services: No Alcohol intake: current Patient Tobacco Use Status: Never used Tobacco Advance Directives Date on File: 10/28/21 service: No Current occupational status: 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 Overall normal device function. Atrial lead position issue clarified with tech- not a concern at this time. [id number]-Xvtazh Cardiac Device Interrogation, pacemaker Procedure code (CPT) selection complete Assessment & Plan Assessment & Plan (1) Heart block: Code(s): I45.9 - Conduction disorder, unspecified Category: Medical Plan x Coding Level of Care Code Est Pt Level 3 (18169) Procedure Only Diagnoses Heart block I45.9 CPT Codes Cardiac Device Check - Cardiac Device 12: [id number] Cardiac Device Interrogation, pacemaker ([id number])
== END ==
PROVIDERS: PCP Family Medicine; Visit Provider Internal Medicine
DX: I45.9 Conduction disorder, unspecified (principal); Z95.0 Presence of cardiac pacemaker
CPT/HCPCS: 93294

== ENCOUNTER 2024-02-09 11:26 | Outpatient (AMB) | payer MEDICARE, SELFPAY ==
--- NOTE | 2024-02-09 11:43 | MHC.OFFWIV ---
Intake Vital Signs 02/09/24 11:45 Height 5 ft 6 in Weight 236 lb BMI 38.1 BP 126/80 Blood Pressure Location Lt brachial Position Sitting Pulse 72 Pulse Source Pulse Oximeter Pulse Oximetry (%) 98 Oxygen Delivery Method Room Air Intake Visit Reasons: EP RT knee injury Intake Note: Patient here for right knee pain, she states she had a fall on Monday. Unable to really bare weight on it. Patient Tobacco Use Status: Never used Tobacco Allergies gluten [GLUTEN] Allergy (Intermediate, Verified 02/09/24 11:47) GI UPSET Do you need a note to return to daycare/school/sports/work: No HPI HPI Comments History of Present Illness Details This is a 63-year-old female who presented to the walk-in clinic complaining of right knee pain status post mechanical fall that occurred 3 days ago. Patient states that she tripped while walking on the sidewalk causing her to twist her right knee and fall into a park bench on the right side of her body. Patient states she did hit the right side of her head although denies any loss of consciousness, headaches, or nausea/vomiting. Patient states her only complaint is right knee pain. She states she has chronic right knee issues and needs a total knee arthroplasty; however, her pain acutely worsened following this fall. She states this pain is mostly located in the medial aspect of the right knee and radiates slightly distally. She denies any numbness/weakness/paresthesias of her right lower extremity. She is having difficulty ambulating and bearing weight due to her pain. [facility] Medical History (Updated 08/22/23 @ 13:46 by Bryan Murry MD) Other and unspecified hyperlipidemia Essential hypertension Non-rheumatic aortic stenosis Surgical History Aortic valve replaced History of cholecystectomy Family History Father Heart attack Cardiovascular disease Mother Cardiovascular disease Social History Household Members: Family Housing: House Do you presently have visiting nurse or other home services: No Alcohol intake: current Patient Tobacco Use Status: Never used Tobacco Advance Directives Date on File: 10/28/21 service: No Current occupational status: 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 Reproductive History Menstrual Age of Menarche: 10 Review of Systems Const All systems reviewed & are unremarkable except as noted in HPI and below Reports no additional complaints Eyes Reports no additional complaints ENT Reports no additional complaints Card Reports no additional complaints Resp Reports no additional complaints GI Reports no additional complaints Reports no additional complaints Musc Reports no additional complaints Skin/Breast Reports system reviewed and no additional complaints, except as documented Neuro Reports no additional complaints Psych Reports no additional complaints Endo Reports no additional complaints Krystian/Lymph Reports no additional complaints Aller/Immun Reports no additional complaints Physical Exam Const Other: Vital signs reviewed. Constitutional: Non-toxic appearing. No acute distress. Well-developed and well-nourished. HEENT: Normocephalic and atraumatic. Skin: Warm and dry. No rashes or lesions noted. Neck: Full and painless range of motion. Cardio: Regular rate. No lower extremity edema. Pulmonary: No respiratory distress. No accessory muscle usage. Gastrointestinal: Soft, nontender, and nondistended in all 4 quadrants. Musculoskeletal: There is mild swelling of the right knee diffusely. She has tenderness to palpation of the medial aspect of the knee. She has increased pain with flexion/extension of the knee. Neuro: Alert and oriented x4. Cranial nerves 2-12 grossly intact. No focal deficits appreciated. Psych: Normal mood and affect. Assessment & Plan Assessment & Plan (1) Right knee injury: Code(s): S89.91XA - Unspecified injury of right lower leg, initial encounter Qualifiers: Encounter type: initial encounter Qualified Code(s): S89.91XA - Unspecified injury of right lower leg, initial encounter Plan: 63-year-old female who presented to the walk-in clinic complaining of right knee pain status post mechanical fall that occurred 3 days ago. Differential diagnosis includes fracture versus dislocation versus sprain/strain versus ligament tear. An x-ray of the right knee was obtained, which was negative for acute bony abnormality. Recommended rest/activity modification, ice to the area, elevation of the extremity, and continue with acetaminophen/ibuprofen for pain management as long as patient has no medical contraindications. Patient can continue utilizing her knee brace for comfort. Patient was given crutches for ambulation. Patient was given orthopedic referral for further evaluation due to concern for ligamentous/meniscal injury. Patient was advised to follow-up here if she were to develop persistent or worsening symptoms. Patient verbalized understanding and she is in agreement with the plan. Orders: Referrals Orthopedics Referral S89.91XA - Unspecified injury of right lower leg, initial encounter Coding Level of Care Code Est Pt Level 3 (27474) Diagnoses Injury of right knee, initial encounter S89.91XA Encounter type: initial encounter
[2024-02-09 11:45] VITALS: BP 126/80; PULSE 72; O2SAT 98; BMI 38.1
== END 2024-02-09 12:51 | disposition home or self-care (01) ==
PROVIDERS: PCP Family Medicine; Visit Provider Physician Assistant Medical
DX: S89.91XA Unspecified injury of right lower leg, initial encounter (principal)

== ENCOUNTER 2024-02-09 11:26 | Outpatient (REF) | payer MEDICARE, SELFPAY | END 2024-02-09 11:27 | disposition home or self-care (01) | LOC: HO.HMGCX 11:26 | PROVIDERS: PCP Family Medicine; Visit Provider Physician Assistant Medical | DX: S89.91XA Unspecified injury of right lower leg, initial encounter (principal) | CPT/HCPCS: 73564; 99212 ==

== ENCOUNTER → 2024-02-13 23:59 | Outpatient (BNV) | payer MEDICARE, SELFPAY ==
--- NOTE | 2024-02-15 12:25 | A.OFFVIS_ITS ---
Intake Visit Reasons: Remote device check- [employer] Allergies gluten [GLUTEN] Allergy (Intermediate, Verified 02/09/24 11:47) GI UPSET PFSH Medical History (Updated 02/15/24 @ 12:27 by Bryan Murry MD) Other and unspecified hyperlipidemia Essential hypertension Non-rheumatic aortic stenosis Surgical History Aortic valve replaced History of cholecystectomy Family History Father Heart attack Cardiovascular disease Mother Cardiovascular disease Social History Household Members: Family Housing: House Do you presently have visiting nurse or other home services: No Alcohol intake: current Patient Tobacco Use Status: Never used Tobacco Advance Directives Date on File: 10/28/21 service: No Current occupational status: 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 Overall normal device function. [id number] Cardiac Device Interrogation, pacemaker Procedure code (CPT) selection complete Assessment & Plan Assessment & Plan (1) Pacemaker: Code(s): Z95.0 - Presence of cardiac pacemaker Category: Medical (2) Heart block: Code(s): I45.9 - Conduction disorder, unspecified Category: Medical Plan x Coding Level of Care Code Procedure Only Diagnoses Pacemaker Z95.0 Heart block I45.9 CPT Codes Cardiac Device Check - Cardiac Device 12: [id number] Cardiac Device Interrogation, pacemaker ([id number])
== END ==
PROVIDERS: PCP Family Medicine; Visit Provider Internal Medicine
DX: I45.9 Conduction disorder, unspecified (principal); Z95.0 Presence of cardiac pacemaker
CPT/HCPCS: 93294

== ENCOUNTER 2024-03-08 10:47 | Outpatient (AMB) | payer MEDICARE, SELFPAY ==
--- NOTE | 2024-03-08 10:49 | A.OFFVIS_ITS ---
Vital Signs 03/08/24 10:50 Height 5 ft 6 in Weight 236 lb BMI 38.1 Intake Visit Reasons: OV - Right Knee OA Intake Note: Tala is a 63 year old female who presents today for a follow up of her right knee OA. Patient reports pain with daily activities, worse with kneeling, standing and ambulation of stairs. Intermittent swelling and instability. TKA was recommended but due to aortic stenosis she must treat condition prior with data communications analyst. Since then she has been diagnosed with breast cancer and underwent a TAVR , after this procedure she went to complete heart block thus a permanent pace make was implanted. Allergies gluten [GLUTEN] Allergy (Intermediate, Verified 03/08/24 10:50) GI UPSET HPI HPI OV - Right Knee OA: Details: Tala is a 63 year old female who presents today for a follow up of her right knee OA. Patient reports pain with daily activities, worse with kneeling, standing and ambulation of stairs. Intermittent swelling and instability. TKA was recommended but due to aortic stenosis she must treat condition prior with data communications analyst. Since then she has been diagnosed with breast cancer and underwent a TAVR , after this procedure she went to complete heart block thus a permanent pace make was implanted. [facility] Medical History (Updated 02/15/24 @ 12:27 by Bryan Murry MD) Other and unspecified hyperlipidemia Essential hypertension Non-rheumatic aortic stenosis Surgical History Aortic valve replaced History of cholecystectomy Family History Father Heart attack Cardiovascular disease Mother Cardiovascular disease Social History Household Members: Family Housing: House Do you presently have visiting nurse or other home services: No Alcohol intake: current Patient Tobacco Use Status: Never used Tobacco Advance Directives Date on File: 10/28/21 service: No Current occupational status: 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 Reproductive History Menstrual Age of Menarche: 10 Physical Exam Vital Signs: BMI result Body Mass Index 38.1 Const General: no acute distress, alert and awake Orientation/consciousness: patient oriented x3 HEENT Head: Yes normocephalic and Yes atraumatic Eyes EOM: EOMs intact bilaterally Resp Effort & Inspection: normal respiratory effort and able to speak in complete sentences Cardio Jugular venous distension: no JVD Skin General skin exam: turgor normal Rashes: no rashes Neuro General: patient oriented x3 Extrem Other: Right Knee: Patella lateralization Retropatellar TTP Valgus ER deformity bilaterally Psych Appearance: grossly normal Affect: normal affect Attitude: cooperative Office Procedures Joint Inj/Aspir; Non-Pain Clin Joint Injection/Drain Details: Injected 1 mL of Decadron and 3 mL 1% lidocaine and 3 mL of 0.25% Marcaine. Site was prepped using aseptic technique. Patient tolerated the procedure well. Shoulders, Hips, Knees, Knee Large Joint Injection : Right Knee Coding Procedure code (CPT) selection complete Assessment & Plan Assessment & Plan (1) Osteoarthritis of right knee: Code(s): M17.11 - Unilateral primary osteoarthritis, right knee Category: Medical Qualifiers: Osteoarthritis type: primary Qualified Code(s): M17.11 - Unilateral primary osteoarthritis, right knee Plan: This is the 63-year-old woman with severe right knee osteoarthritis. We had talked about surgery in the past and she had her aortic root addressed but was subsequently diagnosed with invasive breast cancer in his been going through treatment for that. Understandably so, she would like to take a break from medical treatments. I injected her right knee today and she can follow up as needed. I do think knee replacement would benefit her at some point in the future but I think it is important that she recover from everything she has been undergoing last year. Coding Level of Care Code Est Pt Level 3 (63319) Diagnoses Primary osteoarthritis of right knee M17.11 Osteoarthritis type: primary CPT Codes Shoulders, Hips, Knees, - Knee Large Joint Injection : Right Knee ([id number])
[2024-03-08 10:50] VITALS: BMI 38.1
--- OUTSIDE RECORDS SUMMARY | 2024-03-13 07:44 | XMS_ITS ---
Author Name [facility] Organization Unknown History of Medication Use Medication Directions Dispensed Refills Start Date End Date Stat us gadobutrol (GADAVIST) injection 8 mL 8 mL, Intravenous, Once in imaging, contrast, Starting on Mon10/18/23 at 1255, For 1 dose, Radiology Appointment 10/21/2023 completed Problems Problem Status Onset Date Problem Type Date of Resolution Source Encounter for interrogation of cardiac pacemaker [facility]
== END 2024-03-08 11:19 | disposition home or self-care (01) ==
PROVIDERS: PCP Family Medicine; Visit Provider Orthopaedic Surgery
DX: M17.11 Unilateral primary osteoarthritis, right knee (principal)
CPT/HCPCS: 20610; 99213

== ENCOUNTER → 2024-03-08 10:47 | Outpatient (BNVA) | payer MEDICARE, SELFPAY | PROVIDERS: PCP Family Medicine; Visit Provider Orthopaedic Surgery | DX: M17.11 Unilateral primary osteoarthritis, right knee (principal) | CPT/HCPCS: 20610; 99212; J0665; J1100; J2003 ==

== ENCOUNTER 2024-04-16 11:04 | Outpatient (AMB) | payer MEDICARE, SELFPAY ==
[2024-04-16 11:07] VITALS: BP 116/60; PULSE 64; BMI 38.1
--- NOTE | 2024-04-16 11:07 | MHC.OFFVIS ---
Intake Visit Reasons: 6 mth f/up Allergies gluten [GLUTEN] Allergy (Intermediate, Verified 03/08/24 10:50) GI UPSET PFSH Medical History (Updated 02/15/24 @ 12:27 by Bryan Murry MD) Other and unspecified hyperlipidemia Essential hypertension Non-rheumatic aortic stenosis Surgical History Aortic valve replaced History of cholecystectomy Family History Father Heart attack Cardiovascular disease Mother Cardiovascular disease Social History Household Members: Family Housing: House Do you presently have visiting nurse or other home services: No Alcohol intake: current Patient Tobacco Use Status: Never used Tobacco Advance Directives Date on File: 10/28/21 service: No Current occupational status: 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 Reproductive History Menstrual Age of Menarche: 10 Review of Systems Const Denies chills, Denies fatigue, Denies fever(s), Denies weight gain and Denies weight loss ENT Denies dizziness Card Denies chest pain, Denies leg edema, Denies lightheadedness, Denies palpitations, Denies dyspnea on exertion, Denies orthopnea and Denies other Resp Denies cough and Denies dyspnea on exertion GI Denies hematochezia and Denies change in stool character Musc Denies abnormal gait, Denies muscle weakness, Denies numbness, Denies radiating pain into limb and Denies tingling Neuro Denies abnormal gait, Denies dizziness, Denies numbness and Denies tingling Endo Denies fatigue and Denies palpitations Coding
--- NOTE | 2024-04-16 11:07 | MHC.OFFVIS ---
Intake Visit Reasons: 6 mth f/up Allergies gluten [GLUTEN] Allergy (Intermediate, Verified 03/08/24 10:50) GI UPSET PFSH Medical History (Updated 02/15/24 @ 12:27 by Bryan Murry MD) Other and unspecified hyperlipidemia Essential hypertension Non-rheumatic aortic stenosis Surgical History Aortic valve replaced History of cholecystectomy Family History Father Heart attack Cardiovascular disease Mother Cardiovascular disease Social History Household Members: Family Housing: House Do you presently have visiting nurse or other home services: No Alcohol intake: current Patient Tobacco Use Status: Never used Tobacco Advance Directives Date on File: 10/28/21 service: No Current occupational status: 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 Reproductive History Menstrual Age of Menarche: 10 Review of Systems Const Denies weakness ENT Denies dizziness Card Denies chest pain, Denies chest pain with activity, Denies syncope, Denies rapid heart rate, Denies pedal edema, Denies edema, Denies leg edema, Denies lightheadedness, Denies palpitations, Denies dyspnea, Denies dyspnea on exertion and Denies orthopnea Resp Denies cough, Denies dyspnea and Denies dyspnea on exertion GI Denies hematochezia and Denies change in stool character Musc Denies abnormal gait, Denies muscle cramps, Denies muscle weakness, Denies numbness, Denies radiating pain into limb and Denies tingling Neuro Denies abnormal gait, Denies dizziness, Denies syncope, Denies numbness, Denies tingling and Denies weakness Endo Denies palpitations Coding
--- NOTE | 2024-04-16 11:17 | MHC.OFFVIS ---
Vital Signs 04/16/24 11:07 04/16/24 11:18 Height 5 ft 6 in Weight 235 lb 14.314 oz BMI 38.1 38.1 BP 116/60 Blood Pressure Location Lt brachial Position Sitting Pulse 64 Pulse Source Monitor Intake Visit Reasons: 6 mth f/up Allergies gluten [GLUTEN] Allergy (Intermediate, Verified 03/08/24 10:50) GI UPSET Medication List - Last Reconciled 04/16/24 by Bryan Murry MD anastrozole 1 mg PO DAILY aspirin (Adult Low Dose Aspirin) 81 mg PO DAILY atorvastatin 40 mg PO DAILY cholecalciferol (vitamin D3) (Vitamin D3) 50 mcg PO DAILY fluticasone propionate 50 mcg/actuation 1 spray intranasal DAILY folic acid 1 mg PO DAILY levothyroxine 75 mcg PO QAM magnesium oxide 400 mg PO BIDPC omeprazole 20 mg PO DAILY tamsulosin 0.4 mg PO BEDTIME HPI Comments Details: Tala returns for follow-up. To recall, she had severe aortic stenosis and was supposed to go for surgical aortic valve replacement. However, she also got diagnosed with breast cancer and hence this was switched to TAVR. Post TAVR, she went to complete heart block and underwent permanent pacemaker implantation. Overall, she seems fine from cardiac standpoint. No symptoms like angina or shortness of breath or anything cardiac. [facility] Medical History (Updated 02/15/24 @ 12:27 by Bryan Murry MD) Other and unspecified hyperlipidemia Essential hypertension Non-rheumatic aortic stenosis Surgical History Aortic valve replaced History of cholecystectomy Family History Father Heart attack Cardiovascular disease Mother Cardiovascular disease Social History Household Members: Family Housing: House Do you presently have visiting nurse or other home services: No Alcohol intake: current Patient Tobacco Use Status: Never used Tobacco Advance Directives Date on File: 10/28/21 service: No Current occupational status: 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 Reproductive History Menstrual Age of Menarche: 10 Review of Systems Const Denies weakness ENT Denies dizziness Card Denies chest pain, Denies chest pain with activity, Denies syncope, Denies rapid heart rate, Denies pedal edema, Denies edema, Denies leg edema, Denies lightheadedness, Denies palpitations, Denies dyspnea, Denies dyspnea on exertion and Denies orthopnea Resp Denies cough, Denies dyspnea and Denies dyspnea on exertion GI Denies hematochezia and Denies change in stool character Musc Denies abnormal gait, Denies muscle cramps, Denies muscle weakness, Denies numbness, Denies radiating pain into limb and Denies tingling Neuro Denies abnormal gait, Denies dizziness, Denies syncope, Denies numbness, Denies tingling and Denies weakness Endo Denies palpitations Physical Exam Vital Signs: Last Vital Signs Pulse 64 04/16/24 11:07 BP 116/60 04/16/24 11:07 BMI result Body Mass Index 38.1 Const General: comfortable and no acute distress Orientation/consciousness: patient oriented x3 HEENT Other: Unremarkable Head: Yes normal to inspection Neck Neck: Yes normal visual inspection Chest Chest palpation & inspection: normal inspection of the chest Resp Auscultation: clear to auscultation bilaterally Cardio Palpation: normal PMI Heart sounds: S1 normal heart sound present, S2 normal heart sound present, no gallops, Murmur heart sound present systolic I/ and at the right sternal border and no rubs GI Palpation (GI): Soft to palpation Back/Spine/Pelvis Other: unremarkable Skin General skin exam: no rashes or lesions noted Neuro General: patient oriented x3 Extrem General: Yes normal to inspection Psych Mental Status: mental status grossly normal Office Procedures EKG Details: EKG with atrial sensed, ventricular paced rhythm at 64/Min. 72561-Xjmebibokxbvouvsr, Complete Assessment & Plan Assessment & Plan (1) Status post transcatheter aortic valve replacement: Code(s): Z95.2 - Presence of prosthetic heart valve Category: Surgical Plan: In the last echocardiogram, normally functioning bioprosthetic aortic valve. Cardiac catheterization shows normal coronary arteries. Continue aspirin. Infective endocarditis prophylaxis per protocol. (2) Encounter for interrogation of cardiac pacemaker: Code(s): Z45.018 - Encounter for adjustment and management of other part of cardiac pacemaker Category: Medical Plan: Normally functioning. (3) Essential hypertension: Code(s): I10 - Essential (primary) hypertension Category: Medical Plan: Stable. No changes. (4) Leg edema: Code(s): R60.0 - Localized edema Category: Medical Plan: She believes she might be on Lasix but not clear. I asked her to stop it if that is the case. (5) Alcohol abuse: Code(s): F10.10 - Alcohol abuse, uncomplicated Category: Social Hx Plan: Per patient, has not used recently. (6) Invasive ductal carcinoma of breast: Code(s): C50.919 - Malignant neoplasm of unspecified site of unspecified female breast Category: Medical Qualifiers: Laterality: left Qualified Code(s): C50.912 - Malignant neoplasm of unspecified site of left female breast Plan: [place] [facility] [place] Per patient, has received surgery/radiation. Coding Level of Care Code Est Pt Level 4 (11208) Diagnoses Status post transcatheter aortic valve replacement Z95.2 Encounter for interrogation of cardiac pacemaker Z45.018 Essential hypertension I10 Leg edema R60.0 Alcohol abuse F10.10 Infiltrating ductal carcinoma of left breast C50.912 Laterality: left CPT Codes EKG - CPT: 13036-Yfiqwkzxkeglkgdvg, Complete ([id number])
[2024-04-16 11:18] VITALS: BMI 38.1
== END 2024-04-16 11:29 | disposition home or self-care (01) ==
PROVIDERS: PCP Family Medicine; Visit Provider Internal Medicine
DX: Z95.2 Presence of prosthetic heart valve (principal); Z45.018 Encounter for adjustment and management of other part of cardiac pacemaker; I10 Essential (primary) hypertension; R60.0 Localized edema; F10.10 Alcohol abuse, uncomplicated; C50.912 Malignant neoplasm of unspecified site of left female breast
CPT/HCPCS: 93010; 99214

== ENCOUNTER → 2024-04-16 11:04 | Outpatient (BNVA) | payer MEDICARE, SELFPAY | PROVIDERS: PCP Family Medicine; Visit Provider Internal Medicine | DX: I10 Essential (primary) hypertension (principal); C50.912 Malignant neoplasm of unspecified site of left female breast; F10.10 Alcohol abuse, uncomplicated; Z45.018 Encounter for adjustment and management of other part of cardiac pacemaker; Z95.2 Presence of prosthetic heart valve | CPT/HCPCS: 93005; 99212 ==

== ENCOUNTER → 2024-04-24 10:54 | Outpatient (REF) | payer MEDICARE, SELFPAY ==
--- NOTE | 2024-04-24 10:59 | CA_ITS ---
Transthoracic Echocardiogram Patient (Last, First, Middle): Tala Farley, Gender: Female Date of : 1960 Age: 63 Procedure Date: 04/24/2024 Procedure Type: Transthoracic Echocardiogram Location: OP Height: 167.64 cm Weight: 102.06 kg BSA: 2.10 m2 Heart Rate: bpm BP: 130 / 70 mmHg Flexo Folder Gluer Operator: TO Referring MD: Sadaf Jeffries MD Auto Body Painter: Jay Dejesus MD Symptoms: S/P TAVR Study Quality: Technically Difficult/Contrast ECG Rhythm: Sinus Conclusions: - 1. Normal LV ejection fraction of 55-60% with elevated filling pressures 2. Normally functioning bioprosthetic aortic valve with mean gradient of 7 mm Hg which is lower than prior measured, possibly related to lower stroke volume 3. Upper limits of normal ascending aortic size Findings Procedure Information Contrast agent, definity, is being given per protocol without apparent complications. Left Ventricle Normal left ventricular size, thickness, and systolic function. The visually estimated ejection fraction is between 55-60%. Spectral Doppler is indicative of an impaired relaxation filling pattern. Elevated filling pressures. E/E prime ratio is >15, consistent with elevated filling pressures. There is mild septal asymmetric hypertrophy. Right Ventricle The right ventricle was not well visualized. There is normal right ventricular systolic function. Atria The left atrium is likely dilated. Interatrial shunt cannot be excluded. The right atrium was not well visualized. Aortic Valve A bioprosthetic aortic valve is present. The prosthetic aortic valve appears to be functioning normally. The mean gradient is 7 mmHg. There is no aortic valve regurgitation. Mitral Valve The mitral valve was not well visualized. There is moderate mitral annular calcification. There is trace mitral valve regurgitation. There is no mitral valve stenosis. Pulmonic Valve The pulmonic valve was not well visualized. Tricuspid Valve The tricuspid valve was not well visualized. Tricuspid regurgitation envelope is inadequate for calculation of right ventricular systolic pressure. Great Vessels The aorta was not well visualized. The pulmonary artery was not well visualized. Venous The inferior vena cava is normal in size and collapses greater than 50% with inspiration. Pericardium/Pleural The pericardium was not well visualized. Prior Study Comparison No significant change compared to prior study dated: 07/04/2023. Measurements 2D Linear Measurements IVSd: 1.20 0.6-0.9/0.6-1.0 cm LVIDd: 4.66 3.9-5.3/4.2-5.9 cm LVIDd Index: 2.22 2.4-3.2/2.2-3.1 cm/m2 LVIDs: 3.38 2.0-3.6 cm LVPWd: 0.94 0.7-1.1 cm LA Diam: 4.00 2.7-3.8/3.0-4.0 cm LAIDs Index: 1.90 1.5-2.3 cm/m2 LV Mass: 222.06 67-162/88-224 g LV Mass Index: 105.74 43-95/49-115 g/m2 LVOT Diam: 2.10 3.0+(-)1.3 cm Mitral Valve MV VTI: 0.47 MV Pk Bulmaro: 1.38 MV Mn Bulmaro: 0.87 MV Pk Grad: 8.00 MV Mn Grad: 4.00 MV Pk E: 0.95 MV PK A: 0.86 MV Decel Time: 348.00 E/A: 1.10 E'Lateral: 3.92 E'Medial: 4.35 E/E' Med: 21.80 E/E' Lat: 24.20 PHT: 102.00 MVA PHT: 2.16 MVA Continuity: 1.63 Decel Cayey: 2.72 Aortic Valve AoV Pk Bulmaro: 1.82 AoV Mn Bulmaro: 1.27 AoV VTI: 0.39 AoV Pk Grad: 13.00 Aov Mn Grad: 7.00 ANGEL Cont.VTI: 1.95 LVOT LVOT Pk Bulmaro: 0.96 LVOT Mn Bulmaro: 0.68 LVOT VTI: 0.22 LVOT Pk Grad: 4.00 LVOT Mn Grad: 2.00 LVOT Diam: 2.10 LVOT Area: 3.46 Diastolic Function MV Pk E: 0.95 MV Pk A: 0.86 E/A: 1.10 E'Medial: 4.35 E/E' Med: 21.80 E' Laterial: 3.92 E/E' Lat: 24.20 Right Ventricle TAPSE (mm): 24.20 TVS' Bulmaro: 10.70 Tricuspid Valve RA Press: 3.00 Great Vessels Aorta Sinus of Valsalva: 3.26 2.0-3.5 cm Ao Asc: 3.60 2.1-3.4 cm Ao Arch: 2.80 Updated in Other Vendor System with Status of Final Jay Dejesus MD electronically signed on 04/24/2024 3:46:36 PM with status of Final
--- OUTSIDE RECORDS SUMMARY | 2024-04-24 12:26 | XMS_ITS | Patient Health Record ---
Author Organization [facility] Address [address] [place] [id number] Care Team Providers Care Optical Model Maker And Tester Name Role Phone Leo RAMSAY, Jaret Primary Care Provider Oneal Gale [phone] REASON FOR REFERRAL No Information MEDICATIONS Medication SIG (Take, Route, Fr equency, Duration) Notes Start Date End Date Status Omeprazole Active Lisinopril Active Atorvastatin Calcium Active Cholestyramine 4 GM 1/4-1 scoop mixed in a glass of water or oj Orally daily for diarrhea for 30 day(s) 12/08/2015 Active SOCIAL HISTORY Sex Assigned At : Social History Observation Description Sex Assigned At Unknown PROBLEMS Problem Type ICD Code Onset Dates Problem Status W/U Status Risk SNOMED Code Notes Problem Barretts esophagus without dysplasia (K22.70) Active confirmed 339077344 Problem Diarrhea, unspecified type (R19.7) Active confirmed 55365183 Problem Encounter for screening for malignant neoplasm of colon (Z12.11) Active confirmed 347044120 Problem Encounter for screening for malignant neoplasm of rectum (Z12.12) Active confirmed Screening fo r malignant neoplasm of rectum (759581133) Problem History of adenomatous polyp of colon (Z86.010) Active confirmed 931136020 Problem Irritable bowel syndrome with diarrhea (K58.0) Active confirmed 821925137 PLAN OF TREATMENT Future Test Test Name Order Date UPPER GI ENDOSCOPY 12/08/2015 COLONOSCOPY 12/08/2015 Insurance Providers Payer Name Payer Address Payer Phone Subscriber Number Group Number Insured Name Patient Relationship to Insured Coverage Start Date Coverage End Date [facility] [address] [address] [place], [place] [phone] [id number] D[place]AS TOLBERT Self - patient is the insured MEDICAL (GENERAL) HISTORY Medical History History ICD Code Screening Colonoscopy in Oct--removal of a tubular adenoma, mild sigmoid diverticulosis, small internal hemorrhoids GERD--Rodriguez's Esophagus--m ost recent upper endoscopy was in October of 2010 with a finding of her moderate size hiatal hernia and Rodriguez's esophagus, with all biopsies negative for dysplasia HTN Hyperlipidemia Denies PR,DM,CVA,Lung disease,renal dise ase IBS Surgical History Surgery Date(Month/Year) Cholecystectomy 2008 for gallstones--Dr. Chambers
--- OUTSIDE RECORDS SUMMARY | 2024-04-24 12:26 | XMS_ITS | Clinical Summary ---
Author Organization [facility] Address [address] [place] [address] Care Team Providers Care Veterinary Hospital Attendant Name Role Phone Jaret Bailey MD Primary Care Provider [phone] Allergies No known active allergies Social History Tobacco Use Types Packs/Day Years Used Date Smoking Tobacco: Never Assessed Sex and Gender Information Value Date Recorded Sex Assigned at Female 10/18/2023 11:07 AM EDT Gender Identity Female 10/18/2023 11:07 AM EDT Sexual Orientation Heterosexual (straight) 10/17 11:07 AM EDT Plan of Treatment Health Maintenance Due Date Last Done Comments Hepatitis C Virus Screening 1960 HIV Screening 1971 DTaP/Tdap/Td Vaccines (1 - Tdap) 1977 Pneumococcal Vaccines 50+ (1 of 2 - PCV) 1977 Zoster (Shingles) Vaccine (1 of 2) 1977 Pap Smear (Ages 21-65) 1979 Mammogram 1998 Colonoscopy 2003 DXA Bone Density (Females,Ages 65 and older) 2023 Influenza Vaccine 11/02/2023 06/13/2023, 03/24/2021 COVID-19 Vaccine (4 - 2023-2 5 season) 2023 03/24/2021, 08/06/2020, 07/15/2020 RSV Vaccine 60 years and older and Patients (1 - 1-dose 75+ series) 2033 Hepatitis B Vaccines Aged Out No long er eligible based on patient's age to complete this topic Medical Devices Implanted Type Area Community Affairs Manager Device Identifier Shelf Expiration Date Model / Serial / Lot Medtronic 3830 Selectsecure [id number] Implanted:2023 (Quantity not on file) Lead Medtronic 3830 SELECTSECURE / [id number] / Medtronic 4076 Capsurefix Novus Mri Surescan [id number] Implanted:2023 (Quantity not on file) Lead Medtronic 4076 CAPSURE FIX NOVUS MRI SURESCAN / [id number] / Medtronic [id number] [place] Xt Dr Reyes [id number] Implanted:2023 (Quantity not on file) Pacemaker Medtronic [id number] FAHE[address] REYES / [id number] / Care Teams Veterinary Hospital Attendant Relationship Specialty Start Date End Date Jaret Bailey MD [address] [place] [address] [place] [address] PCP - General Internal Medicine 07/27/23
--- OUTSIDE RECORDS SUMMARY | 2024-04-24 12:26 | XMS_ITS | Encounter Summary ---
Author Organization [facility] Address [address] [place] [address] Care Team Providers Care Leasing Sales Consultant Name Role Phone Jaret Bailey MD Primary Care Provider [phone] Encounter Details Date Type Department Care Team (Late st Contact Info) Description 08/04/2023 Scanned [address] [place] [phone] Radiology, Scan Social History Tobacco Use Types Packs/Day Years Used Date Smoking Tobacco: Never Assessed Sex and Gender Information Value Date Recorded Sex Assigned at Female 10/18/2023 11:07 AM EDT Gender Identity Female 10/18/2023 11:07 AM EDT Sexual Orientation Heterosexual (straight) 10/17 11:07 AM EDT documented as of this encounter Plan of Treatment Not on file documented as of this encounter Procedures Procedure Name Priority Date/Time Associated Diagnosis Comments HX OUTSIDE ORDER 08/26/2023 HX OUTSIDE ORDER 08/04/2023 documented in this encounter Results * HX OUTSIDE ORDER (08/26/2023) Scan Radiology HX AMB PROCEDURES * HX OUTSIDE ORDER (08/04/2023) Scan Radiology HX AMB PROCEDURES documented in this encounter Visit Diagnoses Not on filedocumented in this encounter Care Teams Leasing Sales Consultant Relationship Specialty Start Date End Date Jaret Bailey MD [address] [place] [address] [place] [address] PCP - General Internal Medicine 07/27/23 documented as of this encounter
== END ==
LOC: HO.CARD 10:54
PROVIDERS: PCP Family Medicine; Visit Provider Internal Medicine Cardiovascular Disease
DX: Z95.3 Presence of xenogenic heart valve (principal)
CPT/HCPCS: 93306; Q9957

== ENCOUNTER → 2024-04-24 10:59 | Outpatient (BNV) | payer MEDICARE, SELFPAY | PROVIDERS: PCP Family Medicine; Visit Provider Internal Medicine Cardiovascular Disease | DX: I42.2 Other hypertrophic cardiomyopathy (principal); Z95.3 Presence of xenogenic heart valve; I34.81 Nonrheumatic mitral (valve) annulus calcification | CPT/HCPCS: 93306 ==

== ENCOUNTER → 2024-05-13 23:59 | Outpatient (BNV) | payer MEDICARE, SELFPAY ==
--- NOTE | 2024-05-20 10:51 | MHC.OFFVIS ---
Intake Visit Reasons: Remote device check- Medtronic Allergies gluten [GLUTEN] Allergy (Intermediate, Verified 03/08/24 10:50) GI UPSET PFSH Medical History (Updated 02/15/24 @ 12:27 by Bryan Murry MD) Other and unspecified hyperlipidemia Essential hypertension Non-rheumatic aortic stenosis Surgical History Aortic valve replaced History of cholecystectomy Family History Father Heart attack Cardiovascular disease Mother Cardiovascular disease Social History Household Members: Family Housing: House Do you presently have visiting nurse or other home services: No Alcohol intake: current Patient Tobacco Use Status: Never used Tobacco Advance Directives Date on File: 10/28/21 service: No Current occupational status: 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 Overall normal device function. [id number] Cardiac Device Interrogation, pacemaker Procedure code (CPT) selection complete Assessment & Plan Assessment & Plan (1) Pacemaker: Code(s): Z95.0 - Presence of cardiac pacemaker Category: Medical (2) Heart block: Code(s): I45.9 - Conduction disorder, unspecified Category: Medical Plan x Coding Level of Care Code Procedure Only Diagnoses Pacemaker Z95.0 Heart block I45.9 CPT Codes Cardiac Device Check - Cardiac Device 12: [id number] Cardiac Device Interrogation, pacemaker ([id number])
== END ==
PROVIDERS: PCP Family Medicine; Visit Provider Internal Medicine
DX: I45.9 Conduction disorder, unspecified (principal); Z95.0 Presence of cardiac pacemaker
CPT/HCPCS: 93294

== ENCOUNTER → 2024-08-12 23:59 | Outpatient (BNV) | payer MEDICARE, SELFPAY ==
--- NOTE | 2024-08-14 16:06 | A.OFFVIS_ITS ---
Intake Visit Reasons: Remote device check- Medtronic Allergies gluten [GLUTEN] Allergy (Intermediate, Verified 03/08/24 10:50) GI UPSET PFSH Medical History (Updated 02/15/24 @ 12:27 by Bryan Murry MD) Other and unspecified hyperlipidemia Essential hypertension Non-rheumatic aortic stenosis Surgical History Aortic valve replaced History of cholecystectomy Family History Father Heart attack Cardiovascular disease Mother Cardiovascular disease Social History Household Members: Family Housing: House Do you presently have visiting nurse or other home services: No Alcohol intake: current Patient Tobacco Use Status: Never used Tobacco Advance Directives Date on File: 10/28/21 service: No Current occupational status: 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 Overall normal device function. [id number] Cardiac Device Interrogation, pacemaker Procedure code (CPT) selection complete Assessment & Plan Assessment & Plan (1) Pacemaker: Code(s): Z95.0 - Presence of cardiac pacemaker Category: Medical (2) Heart block: Code(s): I45.9 - Conduction disorder, unspecified Category: Medical Plan x Coding Level of Care Code Procedure Only Diagnoses Pacemaker Z95.0 Heart block I45.9 CPT Codes Cardiac Device Check - Cardiac Device 12: [id number] Cardiac Device Interrogation, pacemaker ([id number])
== END ==
PROVIDERS: PCP Family Medicine; Visit Provider Internal Medicine
DX: I45.9 Conduction disorder, unspecified (principal); Z95.0 Presence of cardiac pacemaker
CPT/HCPCS: 93294

== ENCOUNTER → 2024-08-23 11:00 | Outpatient (BNV) | payer MEDICARE, SELFPAY | PROVIDERS: PCP Family Medicine; Visit Provider Internal Medicine | DX: Z85.3 Personal history of malignant neoplasm of breast (principal) | CPT/HCPCS: 77066; G0279 ==

== ENCOUNTER 2024-08-23 11:01 | Outpatient (REF) | payer MEDICARE, SELFPAY ==
--- NOTE | ~2024-08-23 | MM_ITS ---
EXAMINATION: MM DIAGNOSTIC DIGITAL BREAST TOMOSYNTHESIS, BILATERAL CLINICAL INFORMATION: Left breast cancer in 2023 status post conservation therapy. Yearly screening mammography post breast cancer. COMPARISON: Mammography: Comparison is made with relevant prior exams. TECHNIQUE: Digital breast mammography with tomosynthesis is performed in both the craniocaudal and mediolateral oblique views along with computer-aided detection (CAD). FINDINGS: There are scattered areas of fibroglandular density (ACR BI-RADS breast composition Category b). Left post lumpectomy changes are stable. There are no significant masses, abnormal calcifications, or other abnormalities. Results are provided to the patient at time of visit by the technologist. MM/MM tomosynthesis diagnostic BI IMPRESSION: There are no significant changes from prior study. ASSESSMENT: BI-RADS BI-RADS 2 - Benign Findings RECOMMENDATION: 1 year F/U This patient's information was entered into a reminder system with a target due date for their next mammogram. Electronically signed by: Snow Scott DO 08/23/2024 11:45 AM EDT
== END 2024-08-23 11:02 | disposition home or self-care (01) ==
LOC: HO.MAMMO 11:01
PROVIDERS: PCP Family Medicine; Visit Provider Internal Medicine
DX: Z85.3 Personal history of malignant neoplasm of breast (principal)
CPT/HCPCS: 77062; 77066

== ENCOUNTER 2024-10-14 12:32 | Outpatient (AMB) | payer MEDICARE, SELFPAY ==
[2024-10-14 12:45] VITALS: BP 118/62; PULSE 87
--- NOTE | 2024-10-14 12:45 | MHC.OFFVIS ---
Vital Signs 10/14/24 12:45 Height 5 ft 6 in BMI Reason not done Patient refused/unable BP 118/62 Blood Pressure Location Lt brachial Position Sitting Pulse 87 Pulse Source Pulse Oximeter Intake Visit Reasons: 6m follow up w device ck Allergies gluten (GLUTEN) Allergy (Intermediate, Verified 03/08/24 10:50) GI UPSET Medication List - Last Reconciled 10/14/24 by Bryan Murry MD anastrozole 1 mg PO DAILY aspirin (Adult Low Dose Aspirin) 81 mg PO DAILY atorvastatin 40 mg PO DAILY fluticasone propionate 50 mcg/actuation 1 spray intranasal DAILY folic acid 1 mg PO DAILY levothyroxine 75 mcg PO QAM magnesium oxide 400 mg PO BIDPC omeprazole 20 mg PO DAILY tamsulosin 0.4 mg PO BEDTIME HPI Comments Details: Tala returns for follow-up. To recall, she had severe aortic stenosis and was supposed to go for surgical aortic valve replacement. However, she also got diagnosed with breast cancer and hence this was switched to TAVR. Post TAVR, she went to complete heart block and underwent permanent pacemaker implantation. Since last seen, she states she is actually doing quite well. No new concerns. Over the last couple of years, she has actually put on lot of weight. [facility] Medical History (Updated 02/15/24 @ 12:27 by Bryan Murry MD) Other and unspecified hyperlipidemia Essential hypertension Non-rheumatic aortic stenosis Surgical History Aortic valve replaced History of cholecystectomy Family History Father Heart attack Cardiovascular disease Mother Cardiovascular disease Social History Household Members: Family Housing: House Do you presently have visiting nurse or other home services: No Alcohol intake: current Patient Tobacco Use Status: Never used Tobacco Advance Directives Date on File: 10/28/21 service: No Current occupational status: 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 Reproductive History Menstrual Age of Menarche: 10 Review of Systems Const Denies weakness ENT Denies dizziness Card Denies chest pain, Denies chest pain with activity, Denies syncope, Denies rapid heart rate, Denies pedal edema, Denies edema, Denies leg edema, Denies lightheadedness, Denies palpitations, Denies dyspnea, Denies dyspnea on exertion and Denies orthopnea Resp Denies cough, Denies dyspnea and Denies dyspnea on exertion GI Denies hematochezia and Denies change in stool character Musc Denies abnormal gait, Denies muscle cramps, Denies muscle weakness, Denies numbness, Denies radiating pain into limb and Denies tingling Neuro Denies abnormal gait, Denies dizziness, Denies syncope, Denies numbness, Denies tingling and Denies weakness Endo Denies palpitations Physical Exam Vital Signs: Last Vital Signs Pulse 87 10/14/24 12:45 BP 118/62 10/14/24 12:45 Const General: comfortable and no acute distress Orientation/consciousness: patient oriented x3 HEENT Other: Unremarkable Head: Yes normal to inspection Neck Neck: Yes normal visual inspection Chest Chest palpation & inspection: normal inspection of the chest Resp Auscultation: clear to auscultation bilaterally Cardio Palpation: normal PMI Heart sounds: S1 normal heart sound present, S2 normal heart sound present, no gallops, no murmurs and no rubs GI Palpation (GI): Soft to palpation Back/Spine/Pelvis Other: unremarkable Skin General skin exam: no rashes or lesions noted Neuro General: patient oriented x3 Extrem General: Yes normal to inspection Psych Mental Status: mental status grossly normal Office Procedures Cardiac Device Check Cardiac Device Check Details: Pacemaker interrogated today. Dual-chamber device, programmed DDD. Battery status more than 10 years. Normal lead parameters. No alerts. Atrial pacing 30.8%. Ventricular pacing 99.5%. Underlying sinus bradycardia. Overall, normal device function. [id number] Cardiac Device Check, pacemaker dual lead Procedure code (CPT) selection complete Assessment & Plan Assessment & Plan (1) Status post transcatheter aortic valve replacement: Code(s): Z95.2 - Presence of prosthetic heart valve Category: Surgical Plan: In the last echocardiogram, normally functioning bioprosthetic aortic valve. Cardiac catheterization shows normal coronary arteries. Continue aspirin. Infective endocarditis prophylaxis per protocol. (2) Encounter for interrogation of cardiac pacemaker: Code(s): Z45.018 - Encounter for adjustment and management of other part of cardiac pacemaker Category: Medical Plan: Normally functioning. (3) Essential hypertension: Code(s): I10 - Essential (primary) hypertension Category: Medical Plan: Stable. No changes. (4) Alcohol abuse: Code(s): F10.10 - Alcohol abuse, uncomplicated Category: Social Hx Plan: Nothing in the last several months. (5) Invasive ductal carcinoma of breast: Code(s): C50.919 - Malignant neoplasm of unspecified site of unspecified female breast Category: Medical Qualifiers: Laterality: left Qualified Code(s): C50.912 - Malignant neoplasm of unspecified site of left female breast Plan: Followed up at [facility] Oncology. Per patient, has received surgery/radiation. Orders: Orders CA echo transthoracic complete 6 Months Z95.2 - Presence of prosthetic heart valve Coding Level of Care Code Est Pt Level 4 (09385) Complex EM visit Add On G2211 Diagnoses Status post transcatheter aortic valve replacement Z95.2 Encounter for interrogation of cardiac pacemaker Z45.018 Essential hypertension I10 Alcohol abuse F10.10 Infiltrating ductal carcinoma of left breast C50.912 Laterality: left CPT Codes Cardiac Device Check - Cardiac Device 2: 47109-[id number] Cardiac Device Check, pacemaker dual lead ([id number])
--- OUTSIDE RECORDS SUMMARY | 2024-10-14 13:27 | XMS_ITS ---
[facility] Name [facility] Organization Unknown Problems Problem Status Onset Date Problem Type Date of Resolution Source Encounter for interrogation of cardiac pacemaker active EncounterDiagnosisAct H HCCT Encounters Encounter Type Encounter Reason Primary Diagnosis Location Date Ambulatory Encounter for adjustment and management of other part of cardiac pacemaker Encounter for adjustment and management of other part of cardiac pacemaker [facility] 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, right female breast [facility] 10/18/2023 [facility] 09/07/2023 [facility] 09/07/2023 [facility] 09/07/2023 [facility] 09/07/2023 [facility] 09/07/2023 [facility] 09/07/2023 [facility] 08/22[facility]20[facility] Care Team Organization Name Specialty Phone Email Start Date End Da cassie [facility] 08/22/2023 06/19/2024 [facility] REGIS [facility]ESS [facility] 08/04/2023
--- OUTSIDE RECORDS SUMMARY | 2024-10-14 13:27 | XMS_ITS | Patient Health Record ---
Author Organization [facility] Address [address] [place] [address] Care Team Providers Care Airport Manager Name Role Phone Leo RAMSAY, Jaret Primary Care Provider Unavailab eli Becky Logan Unavailable [phone] Reason For Referral No Information Medications Medication SIG (Take, Route, Frequency, Duration) Notes Start Date End Date Status Lisinopril Active Omeprazole Active lipitor Active Social History Tobacco use other than smoking: Question Answer Notes Are you an other tobacco user? No Problems No Known Problems Plan Of Treatment Pending Test Test Name Order Date [id number] Destruction, 04-1612/16/2014 10371-Ksyq Destruction, 04-1603/16/2015 53272-Msbf Destruction, 04-1604/28/2015 08700-Qiju Destruction, 04-1606/09/2015 03634, [id number]/INJECT, JOINT/BURSA 1 87003, [id number]/INJECT, JOINT/BURSA 1 04/21/2013 Insurance Providers Payer Name Payer Address Payer Phone Subscriber Number Group Number Insured Name Patient Relationship to Insured Coverage Start Date Coverage End Date [facility] [address] [place] [address] [id number] MiguelitoMartell Spouse - patient is the spouse of the insured Medical (General) History Medical History History ICD Code Gall bladder problems Sinus conditions Chicken pox Surgical History Surgery Date(Month/Year) cholecystectomy
--- OUTSIDE RECORDS SUMMARY | 2024-10-14 13:27 | XMS_ITS | Clinical Summary ---
Author Organization [facility] Address [address] [place] [address] Care Team Providers Care Grades 9 12 Tutor Name Role Phone Jaret Bailey MD Primary Care Provider [phone] Allergies No known active allergies Social History Tobacco Use Types Packs/Day Years Used Date Smoking Tobacco: Never Assessed Comments Unknown Sex and Gender Information Value Date Recorded Sex Assigned at Female 10/18/2023 11:07 AM EDT Legal Sex Female 11:40 AM EDT Gender Identity Female 10/18/2023 11:07 AM EDT Sexual Orientation Heterosexual (straight) 10/17 11:07 AM EDT Plan of Treatment Health Maintenance Due Date Last Done Comments Hepatitis C Virus Screening 1958 DTaP/Tdap/Td Vaccines (1 - Tdap) 1977 Mammogram 1998 Colonoscopy 2003 Pneumococcal Vaccines 50+ (1 of 1 - PCV) 2008 Zoster (Shingles) Vaccine (1 of 2) 2008 DXA Bone Density (Females,Ages 65 and older) 2023 COVID-19 Vaccine (4 - 2023-2 5 season) 2023 03/24/2021, 08/06/2020, 07/15/2020 Influenza Vaccine 11/01/2024 06/13/2023, 03/24/2021 RSV Vaccine 60 years and older and Patients (1 - 1-dose 75+ series) 2033 Hepatitis B Vaccines Aged Out No long er eligible based on patient's age to complete this topic Medical Devices Implanted Type Area Apprentice Embalmer Device Identifier Shelf Expiration Date Model / Serial / Lot Medtronic 3830 Selectsecure [id number] Implanted:2023 (Quantity not on file) Lead Medtronic 3830 SELECTSECURE / [id number] / Medtronic 4076 Capsurefix Novus Mri Surescan [id number] Implanted:2023 (Quantity not on file) Lead Medtronic 4076 CAPSURE FIX NOVUS MRI SURESCAN / [id number] / Medtronic [id number] Sugden Xt Dr Reyes [id number] Implanted:2023 (Quantity not on file) Pacemaker Medtronic [id number] FAHEEM [address]T DR REYES / [id number] / Insurance BLUE CROSS MGD MEDICARE OUT OF NETWORK Care Teams Grades 9 12 Tutor Relationship Specialty Start Date End Date Jaret Bailey MD [address] [place] [address] [place] [id number] PCP - General Internal Medicine 07/27/23
--- OUTSIDE RECORDS SUMMARY | 2024-10-14 13:28 | XMS_ITS | Patient Health Record ---
Author Organization [facility] Address [address] [place] [address] Care Team Providers Care Aqua Ammonia Operator Name Role Phone Leo (RETIRED) Jaret RAMSAY Primary Care Provider Unavailable Oneal Cervantes Unavailable [phone] Reason For Referral No Information Medications Medication SIG (Take, Route, Fr equency, Duration) Notes Start Date End Date Status Omeprazole Active Lisinopril Active Atorvastatin Calcium Active Cholestyramine 4 GM 1/4-1 scoop mixed in a glass of water or oj Orally daily for diarrhea for 30 day(s) 12/08/2015 Active Problems Problem Type SNOMED Code ICD Code Onset Dates Problem Status W/U Status Risk Notes Problem [id number] Encounter for screening for malignant neoplasm of colon (Z12.11) Active confirmed Problem 590039179 History of adenomatous polyp of colon (Z86.010) Active confirmed Problem 465637959 Irritable bowel syndrome with diarrhea (K58.0) Active confirmed Problem Encounter for screening for malignant neoplasm of rectum (Z12.12) Active confirmed Problem 206399645 Barretts esophagus without dysplasia (K22.70) Active confirmed Problem 39531831 Diarrhea, unspecified type (R19.7) Active confirmed Plan Of Treatment Future Test Test Name Order Date UPPER GI ENDOSCOPY 12/08/2015 COLONOSCOPY 12/08/2015 Insurance Providers Payer Name Payer Address Payer Phone Subscriber Number Group Number Insured Name Patient Relationship to Insured Coverage Start Date Coverage End Date [facility] [address] [address] [place], [place] [id number] D[place]AS FARLEY Self - patient is the insured Medical (General) History Medical History History ICD Code Screening Colonoscopy in Oct--removal of a tubular adenoma, mild sigmoid diverticulosis, small internal hemorrhoids GERD--Rodriguez's Esophagus--m ost recent upper endoscopy was in October of 2010 with a finding of her moderate size hiatal hernia and Rodriguez's esophagus, with all biopsies negative for dysplasia HTN Hyperlipidemia Denies ND,DM,CVA,Lung disease,renal dise ase IBS Surgical History Surgery Date(Month/Year) Cholecystectomy 2008 for gallstones--Dr. Chambers
== END 2024-10-14 13:02 | disposition home or self-care (01) ==
LOC: HO.HCS 12:32
PROVIDERS: PCP Family Medicine; Visit Provider Internal Medicine
DX: Z95.2 Presence of prosthetic heart valve (principal); Z45.018 Encounter for adjustment and management of other part of cardiac pacemaker; I10 Essential (primary) hypertension; F10.10 Alcohol abuse, uncomplicated; C50.912 Malignant neoplasm of unspecified site of left female breast
CPT/HCPCS: 93280; 99214; G2211

== ENCOUNTER → 2024-10-14 12:32 | Outpatient (BNVA) | payer MEDICARE, SELFPAY | PROVIDERS: PCP Family Medicine; Visit Provider Internal Medicine | DX: Z45.018 Encounter for adjustment and management of other part of cardiac pacemaker (principal); Z95.2 Presence of prosthetic heart valve; I10 Essential (primary) hypertension; F10.10 Alcohol abuse, uncomplicated; C50.912 Malignant neoplasm of unspecified site of left female breast | CPT/HCPCS: 93280; 99212 ==

== ENCOUNTER → 2024-11-11 23:59 | Outpatient (BNV) | payer MEDICARE, SELFPAY ==
--- NOTE | 2024-11-20 10:16 | MHC.OFFVIS ---
Intake Visit Reasons: Remote device check- Medtronic Allergies gluten (GLUTEN) Allergy (Intermediate, Verified 03/08/24 10:50) GI UPSET PFSH Medical History (Updated 02/15/24 @ 12:27 by Bryan Murry MD) Other and unspecified hyperlipidemia Essential hypertension Non-rheumatic aortic stenosis Surgical History Aortic valve replaced History of cholecystectomy Family History Father Heart attack Cardiovascular disease Mother Cardiovascular disease Social History Household Members: Family Housing: House Do you presently have visiting nurse or other home services: No Alcohol intake: current Patient Tobacco Use Status: Never used Tobacco Advance Directives Date on File: 10/28/21 service: No Current occupational status: 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 Overall normal device function. [id number]-Rpoebz Cardiac Device Interrogation, pacemaker Procedure code (CPT) selection complete Assessment & Plan Assessment & Plan (1) Pacemaker: Code(s): Z95.0 - Presence of cardiac pacemaker Category: Medical (2) Heart block: Code(s): I45.9 - Conduction disorder, unspecified Category: Medical Plan x Coding Level of Care Code Procedure Only Diagnoses Pacemaker Z95.0 Heart block I45.9 CPT Codes Cardiac Device Check - Cardiac Device 12: [id number]-Elfuhf Cardiac Device Interrogation, pacemaker ([id number])
== END ==
PROVIDERS: PCP Family Medicine; Visit Provider Internal Medicine
DX: I45.9 Conduction disorder, unspecified (principal); Z95.0 Presence of cardiac pacemaker
CPT/HCPCS: 93294